=== PATIENT | male | born 1985 | race African-American/Black ===

== ENCOUNTER 2019-08-17 17:00 | Inpatient (IN) ==
[2019-08-17 17:32] LABS: Basophils # (auto) 0.02 K/uL (0-0.2); Basophils % (auto) 0.5 %; Eosinophils # (auto) 0.06 K/uL (0-0.5); Eosinophils % (auto) 1.4 %; Hematocrit (blood only) 53.5 % (42-52); Immature Granulocytes # (auto) 0.01 K/uL (0.00-0.02); Immature Granulocytes % (auto) 0.2 %; Lymphocytes # (auto) 2.15 K/uL (1.2-3.4); Lymphocytes % (auto) 48.5 %; Mean Corpuscular Hemoglobin 30.5 pg (25-34); Mean Corpuscular Hgb Conc 33.6 g/dL (32-36); Mean Corpuscular Volume 90.5 fL (80-100); Mean Platelet Volume 10.2 fL (7.4-10.4); Monocytes # (auto) 0.45 K/uL (0.11-0.59); Monocytes % (auto) 10.2 %; Neutrophils # (auto) 1.74 K/uL (1.4-6.5); Neutrophils % (auto) 39.2 %; Platelet Count 264 K/uL (130-400); RDW Coefficient of Variation 13.6 % (11.5-14.5); RDW Standard Deviation 44.5 fL (36.4-46.3); Red Blood Count 5.91 M/uL (4.7-6.1); White Blood Count 4.43 K/uL (4.8-10.8)
[2019-08-17 17:59] LABS: Albumin Level 3.4 gm/dl (3.4-5.0); Aspartate Aminotransferase 25 U/L (15-37); BUN Creatinine Ratio 10.1 (10-20); Blood Urea Nitrogen 15 mg/dl (7-18); Calcium 9.8 mg/dl (8.5-10.1); Carbon Dioxide 29 mmol/L (21-32); Chloride 105 mmol/L (98-107); Creatinine Clr Calc Pharmacy 132.1 ml/min; Est GFR (African American) 69.3; Est GFR (Non-African American) 59.8; Glucose 85 mg/dl (70-99); Lipase 68 U/L (73-393); Potassium 4.3 mmol/L (3.5-5.1); Sodium 139 mmol/L (136-145)
[2019-08-17 18:04] LABS: Alanine Aminotransferase 32 U/L (12-78); Albumin Globulin Ratio 0.9 (0.9-2); Alkaline Phosphatase 100 U/L (45-117); Bilirubin,Total 1.1 mg/dl (0.2-1); Globulin 3.9 gm/dl (2.5-4.0); Total Protein 7.3 gm/dl (6.4-8.2); Troponin I < 0.015 ng/ml (0-0.045)
--- NOTE | 2019-08-17 18:10 | XRay Report ---
XR chest 1V portable HISTORY: Atypical Chest Pain COMPARISON: None. FINDINGS: No pneumothorax. No pleural effusions. Cardiac silhouette is mildly enlarged. There is mild pulmonary vascular congestion without overt edema. Low lung volumes. No new focal lung consolidation s to suggest pneumonia. Left upper quadrant pacemaker is noted with the wire overlying the midline. IMPRESSION: Cardiomegaly and mild congestive change. Electronically signed by: Saul Wise M.D. 08/17/2019 6:08 PM
[2019-08-17] MEDS ORDERED: carvediloL 25 MG TAB PO ONE (18:39)
[2019-08-17 19:33] LABS: D Dimer 280 ug/L FEU (0-500)
[2019-08-17] MEDS: NITROGLYCERIN 2% OINTMENT 30GM TUBE EXT SCH (20:26)
--- NOTE | 2019-08-17 22:36 | History & Physical Report ---
Date of Service August 17, 2019 Assessment & Plan (1) AICD (automatic cardioverter/defibrillator) present: (2) V-tach: 33-year-old male with history of hypertension, nonischemic cardiomyopathy, ICD placement 2009, history of V. tach in 2016 and brief episode of A. fib presents status post episode of ICD going off today around 3 PM. Past medical history: Asthma, obstructive sleep apnea, schizophrenia Episode of V. tach with AICD shock The ED ED found to be hypertensive to [id number] over 100-110s EK normal sinus rhythm QTc 410 AICD interrogration: Concerning for 15 beats of monomorphic V. tach Echo ordered BNP ordered Hold off antiarrhythmics as patient stable and in normal sinus rhythm at this time Continue home beta-malcom Cardiology consulted Hypertension Continue home Coreg and lisinopril Given evening dose of Coreg in the ED and an additional dose of hydralazine 25 mg p.o. x1 patient actively hypertensive Continue to monitor and adjust regimen as indicated History of asthma Continue home levalbuterol as needed Schizophrenia Continue home aripiprazole, fluoxetine and hydroxyzine Hypothyroidism TSH ordered Continue home levothyroxine FEN/GI: Heart healthy diet, fluid restricted to 1500 cc DVT prophylaxis: Heparin subcu Code: Full Disposition: MedSurg with telemetry (3) Schizophrenia: (4) HTN (hypertension): (5) Asthma: (6) Cardiomyopathy: History of Present Illness Chief Complaint: Syncopal episode Primary Care Provider: [facility] 33-year-old male with history of hypertension, nonischemic cardiomyopathy, ICD placement 2009, history of V. tach in 2016 and brief episode of A. fib presents status post episode of ICD going off today around 3 PM. Patient reports feeling more short of breath dizzy and weak especially when walking for the last few days. Today he was activities and walking when his defibrillator went off and shocked him. He fell to the grass. As he was walking before he got shocked he felt lightheaded short of breath but did not have any chest pain or palpitations. He has noted about 25 to 30 pound weight gain in the past 2 weeks, orthopnea and increased lower extremity edema. Of note he has had cold symptoms for the past week: Dry cough, sore throat and runny nose. However he denies any wheezing. He also has an abdominal hernia which has been bothering him when he walks. He believes his hernia is getting larger. Denies any chest pain right now (has Nitropaste on because he had some initial chest pain when he arrived). Denies any chest pain, palpitations, abdominal pain, nausea, vomiting, diarrhea, constipation, hematochezia, melena, hematuria and urine Past medical history: Asthma, obstructive sleep apnea, schizophrenia Allergies Allergy/AdvReac Type Severity Reaction Status Date / Time penicillin G Allergy Mild Unknown Unverified 08/17/19 17:43 Home Medications Home Medications Medication Instructions Recorded Confirmed Type aripiprazole 15 mg tablet 15 mg PO DAILY 06/16/19 08/17/19 History aspirin 81 mg tablet,delayed 81 mg PO DAILY 06/16/19 08/17/19 History release carvedilol 25 mg tablet 25 mg PO BID 06/16/19 08/17/19 History hydroxyzine HCl 25 mg tablet 25 mg PO HS 06/16/19 08/17/19 History levalbuterol tartrate 45 2 puff INH QID PRN 06/16/19 08/17/19 History mcg/actuation aerosol inhaler levothyroxine 50 mcg capsule 50 mcg PO DAILY 06/16/19 08/17/19 History lisinopril 5 mg tablet 5 mg PO DAILY 06/16/19 08/17/19 History fluoxetine 20 mg PO DAILY 08/17/19 08/17/19 History Past Med/Surg History Medical History A-fib Asthma Cardiomyopathy Hernia HTN (hypertension) ICD (implantable cardioverter-defibrillator) in place [employer] subcutaneous ICD model A209, implanted 05/07/2016 Schizophrenia Surgical History History of cardiac defibrillator placement Social History Feels Safe at Home: Yes Smoking Status: Current some day smoker Review of Systems Review of Systems: As per HPI Physical Exam Physical Exam: General: In NAD Neuro: A&O x 4 Pulm: CTAB equal breath sounds bilaterally CV: RRR, no m/r/g Abdomen:+BS, no TTP in all quadrants, obese abdomen, non-bulging umbilical hernia LE: 1+ LE edema, no calf TTP Results & Data Vital Signs (Past 12 Hours) Vital Signs Temp Pulse Pulse Resp BP BP Pulse Ox 08/17/19 22:20 76 19 08/17/19 22:10 71 15 08/17/19 22:01 75 16 08/17/19 22:00 74 12 188/113 H 08/17/19 21:50 74 20 08/17/19 21:40 71 15 08/17/19 21:30 68 21 08/17/19 21:20 68 16 08/17/19 21:10 75 13 08/17/19 21:01 76 16 08/17/19 21:00 72 20 176/128 H 08/17/19 20:50 71 19 08/17/19 20:40 72 24 08/17/19 20:32 74 18 174/105 H 97 08/17/19 20:31 78 15 174/105 H 08/17/19 20:30 76 14 08/17/19 20:28 73 16 171/133 H 97 08/17/19 20:20 75 18 97 08/17/19 20:14 71 19 97 08/17/19 20:13 72 18 178/127 H 98 08/17/19 20:10 72 16 97 08/17/19 20:01 74 19 97 08/17/19 20:00 72 18 98 08/17/19 19:50 70 12 97 08/17/19 19:40 74 16 98 08/17/19 19:30 76 12 97 08/17/19 19:20 77 19 99 08/17/19 19:10 78 14 100 08/17/19 19:01 79 16 174/104 H 99 08/17/19 19:00 78 21 98 08/17/19 18:50 73 16 97 08/17/19 18:40 77 14 08/17/19 18:30 74 16 100 08/17/19 18:25 79 15 97 08/17/19 18:18 192/124 H 08/17/19 18:10 81 19 98 08/17/19 18:01 75 12 97 08/17/19 18:00 68 13 171/123 H 99 08/17/19 17:50 77 30 H 100 08/17/19 17:43 71 20 99 08/17/19 17:40 98 11/19/19 17:15 37.0 C 70 24 171/111 H 99 08/17/19 17:09 70 21 171/111 H 99 Laboratory Results Abnormal lab results 08/17/19 08/17/19 Range/Units 17:15 17:15 WBC 4.43 L (4.8-10.8) K/uL Hct 53.5 H (42-52) % Creatinine 1.51 H (0.6-1.4) mg/dl Total Bilirubin 1.1 H (0.2-1) mg/dl Lipase 68 L (73-393) U/L Diagnostic Findings XR chest 1V portable HISTORY: Atypical Chest Pain COMPARISON: None. FINDINGS: No pneumothorax. No pleural effusions. Cardiac silhouette is mildly enlarged. There is mild pulmonary vascular congestion without overt edema. Low lung volumes. No new focal lung consolidations to suggest pneumonia. Left upper quadrant pacemaker is noted with the wire overlying the midline. IMPRESSION: Cardiomegaly and mild congestive change. Code Status & VTE Plan Code Status Full code VTE Prophylaxis Plan VTE Prophylaxis will be ordered: Yes Supervising Physician Co-Signing Physician Notes Patient seen and examined, chart reviewed, case discussed with Dr. De Los Santos and I agree with her assessment and plan as documented above. Briefly, patient is a 33-year-old -[place] male with history of nonischemic cardiomyopathy status post AICD placement in 2009 presenting to [facility] ER after a syncopal event and AICD discharge at approximately 1530 this afternoon. Patient reports recent increase in shortness of breath and dyspnea on exertion as well as weight gain and dizziness. He reports feeling pounding in his chest and lightheaded prior to the shock. Device interrogation revealed 15 beat episode of wide-complex tachycardia, appears to be monomorphic V. tach with shock administered and return to normal sinus rhythm. On physical exam he is afebrile, hypertensive, otherwise stable Generalno acute distress, resting comfortably HEENTnormocephalic/atraumatic, pupils equal round reactive to light, extraocular muscles intact, moist mucous membranes, dentition intact, JVD diffi cult to assess secondary to body habitus Heart+ S1/S2, regular, no murmurs rubs or gallops, Nitropatch in place from ER\ Lungsequal air entry bilaterally, no rales/rhonchi/wheezes Abdomenobese, bowel sounds present, soft/nontender/nondistended Extremities+2+ pitting edema Labs and images reviewed. Electrolytes are within normal limits. Mildly elevated creatinine to 1.51, elevated hematocrit to 53.5 Assessment/plan 33-year-old -[place] male with history of nonischemic cardiomyopathy status post AICD placement presenting after AICD discharge, episode of wide- complex tachycardia/V. tach noted on interrogation. -Admit to medical floor with telemetry monitoring -Patient's fluid status difficult to assess at this time. His labs suggest that he may be somewhat volume contracted however his history suggest that he may have some degree of volume overload -Check BNP -Check 2D echo -Cardiology consulted. Appreciate assistance with this case -Continue home carvedilol and lisinopril. Will hold additional antiarrhythmics for now -Remainder of plan as above Resident Activity Tracking Resident Involvement: Resident Care Provided Care Provided: Adult Hospital Medicine
--- NOTE | 2019-08-17 23:14 | Billing Data ---
Coding Level of Care Code 44300 Initial Inpt Care Lvl 3
[2019-08-17] MEDS ORDERED: LEVALBUTEROL TARTRATE 15 GM HFA.AER.AD INH PRN (23:15)
--- NOTE | 2019-08-17 23:37 | Emergency Department Note ---
Entered by Shefali Youngblood acting as a scribe for Jarrett Vazquez DO History of Present Illness General Chief complaint: Chest Pain Stated complaint: CARDAIC ASSESSMENT Source: patient History of Present Illness Onset (ago): hour(s) 2 Location: head (syncope) Severity: similar to prior episodes Pain Consistency: + other (episode) Quality: + other (syncope) Associated symptoms: + shortness of breath and + other (Abdominal pain, rhinorrhea, defibrilator went off); no chest pain, no cough and no headaches Treatments prior to arrival: other (supplemental oxygen) The patient is a 33 year old male presenting to the Emergency Department complaining of an episode of syncope staring 2 hours [employer]. The patient reports that his defibrillator went off [employer] and that he then lost consciousness. He explains that he thinks he lost consciousness of a few seconds. He states that he had a defibrillator placed because he has A-fib. He notes that he has been short of breath and experiencing abdominal pain for the past 3 days. He adds that he experienced these symptoms before as his defibrillator has gone off before. The patient reports that he has had his [employer] defibrillator placed though [employer] in [place], [place]. He states that he sometimes has rhinorrhea. He explains that his lower extremities are normally swollen. He notes that he received supplemental oxygen [employer] but that he doesnt normally use supplemental oxygen. He adds that he doesnt currently take blood thinners but has taken Coumadin in the past. He denies chest pain, cough, headache, history of sudden in his family, and heart disease. Home Medications Home Medications Medication Instructions Recorded Confirmed Type aripiprazole 15 mg tablet 15 mg PO DAILY 06/16/19 08/17/19 History aspirin 81 mg tablet,delayed 81 mg PO DAILY 06/16/19 08/17/19 History release carvedilol 25 mg tablet 25 mg PO BID 06/16/19 08/17/19 History hydroxyzine HCl 25 mg tablet 25 mg PO HS 06/16/19 08/17/19 History levalbuterol tartrate 45 2 puff INH QID PRN 06/16/19 08/17/19 History mcg/actuation aerosol inhaler levothyroxine 50 mcg capsule 50 mcg PO DAILY 06/16/19 08/17/19 History lisinopril 5 mg tablet 5 mg PO DAILY 06/16/19 08/17/19 History fluoxetine 20 mg PO DAILY 08/17/19 08/17/19 History Allergies Allergy/AdvReac Type Severity Reaction Status Date / Time penicillin G Allergy Mild Unknown Unverified 08/17/19 17:43 Past Med/Surg History Medical History A-fib Asthma Cardiomyopathy Hernia HTN (hypertension) ICD (implantable cardioverter-defibrillator) in place [employer] subcutaneous ICD model A209, implanted 05/07/2016 Schizophrenia Surgical History History of cardiac defibrillator placement Social History Feels Safe at Home: Yes Smoking Status: Current some day smoker Review of Systems See HPI for pertinent positives & negatives. and A total of 10 systems reviewed and were otherwise negative Physical Exam Vital Signs Vital Signs - 24 hr 08/17/19 17:09 08/17/19 17:15 08/17/19 17:40 Temperature 37.0 C Temperature Source Oral Pulse Rate 70 70 Pulse Rate [Apical] Pulse Rate from SpO2 Sensor 71 Respiratory Rate 21 24 Respiratory Depth Shallow Blood Pressure 171/111 H 171/111 H Blood Pressure [Right Arm] Blood Pressure Mean 136 131 Blood Pressure Mean [Right Arm] Blood Pressure Position Sitting Pulse Oximetry 99 99 98 Oxygen Delivery Method Room Air Sepsis Recent Fever Within 48 Hours No Sepsis Action Taken by Nursing No Action Required 08/17/19 17:43 08/17/19 17:50 08/17/19 18:00 Temperature Temperature Source Pulse Rate 71 77 68 Pulse Rate [Apical] Pulse Rate from SpO2 Sensor 70 71 67 Respiratory Rate 20 30 H 13 Respiratory Depth Blood Pressure 171/123 H Blood Pressure [Right Arm] Blood Pressure Mean 137 Blood Pressure Mean [Right Arm] Blood Pressure Position Pulse Oximetry 99 100 99 Oxygen Delivery Method Sepsis Recent Fever Within 48 Hours Sepsis Action Taken by Nursing 08/17/19 18:01 08/17/19 18:10 08/17/19 18:18 Temperature Temperature Source Pulse Rate 75 81 Pulse Rate [Apical] Pulse Rate from SpO2 Sensor 76 82 Respiratory Rate 12 19 Respiratory Depth Blood Pressure 192/124 H Blood Pressure [Right Arm] Blood Pressure Mean 147 Blood Pressure Mean [Right Arm] Blood Pressure Position Pulse Oximetry 97 98 Oxygen Delivery Method Sepsis Recent Fever Within 48 Hours Sepsis Action Taken by Nursing 08/17/19 18:25 08/17/19 18:30 08/17/19 18:40 Temperature Temperature Source Pulse Rate 79 74 77 Pulse Rate [Apical] Pulse Rate from SpO2 Sensor 73 73 71 Respiratory Rate 15 16 14 Respiratory Depth Blood Pressure Blood Pressure [Right Arm] Blood Pressure Mean Blood Pressure Mean [Right Arm] Blood Pressure Position Pulse Oximetry 97 100 Oxygen Delivery Method Sepsis Recent Fever Within 48 Hours Sepsis Action Taken by Nursing 08/17/19 18:50 08/17/19 19:00 08/17/19 19:01 Temperature Temperature Source Pulse Rate 73 78 79 Pulse Rate [Apical] Pulse Rate from SpO2 Sensor 74 77 76 Respiratory Rate 16 21 16 Respiratory Depth Blood Pressure 174/104 H Blood Pressure [Right Arm] Blood Pressure Mean 117 Blood Pressure Mean [Right Arm] Blood Pressure Position Pulse Oximetry 97 98 99 Oxygen Delivery Method Sepsis Recent Fever Within 48 Hours Sepsis Action Taken by Nursing 08/17/19 19:10 08/17/19 19:20 08/17/19 19:30 Temperature Temperature Source Pulse Rate 78 77 76 Pulse Rate [Apical] Pulse Rate from SpO2 Sensor 74 75 76 Respiratory Rate 14 19 12 Respiratory Depth Blood Pressure Blood Pressure [Right Arm] Blood Pressure Mean Blood Pressure Mean [Right Arm] Blood Pressure Position Pulse Oximetry 100 99 97 Oxygen Delivery Method Sepsis Recent Fever Within 48 Hours Sepsis Action Taken by Nursing 08/17/19 19:40 08/17/19 19:50 08/17/19 20:00 Temperature Temperature Source Pulse Rate 74 70 72 Pulse Rate [Apical] Pulse Rate from SpO2 Sensor 73 72 73 Respiratory Rate 16 12 18 Respiratory Depth Blood Pressure Blood Pressure [Right Arm] Blood Pressure Mean Blood Pressure Mean [Right Arm] Blood Pressure Position Pulse Oximetry 98 97 98 Oxygen Delivery Method Sepsis Recent Fever Within 48 Hours Sepsis Action Taken by Nursing 08/17/19 20:01 08/17/19 20:10 08/17/19 20:13 Temperature Temperature Source Pulse Rate 74 72 72 Pulse Rate [Apical] Pulse Rate from SpO2 Sensor 73 72 67 Respiratory Rate 19 16 18 Respiratory Depth Blood Pressure 178/127 H Blood Pressure [Right Arm] Blood Pressure Mean 145 Blood Pressure Mean [Right Arm] Blood Pressure Position Pulse Oximetry 97 97 98 Oxygen Delivery Method Sepsis Recent Fever Within 48 Hours Sepsis Action Taken by Nursing 08/17/19 20:14 08/17/19 20:20 08/17/19 20:28 Temperature Temperature Source Pulse Rate 71 75 73 Pulse Rate [Apical] Pulse Rate from SpO2 Sensor 72 75 73 Respiratory Rate 19 18 16 Respiratory Depth Blood Pressure 171/133 H Blood Pressure [Right Arm] Blood Pressure Mean 142 Blood Pressure Mean [Right Arm] Blood Pressure Position Pulse Oximetry 97 97 97 Oxygen Delivery Method Sepsis Recent Fever Within 48 Hours Sepsis Action Taken by Nursing 08/17/19 20:30 08/17/19 20:31 08/17/19 20:32 Temperature Temperature Source Pulse Rate 76 78 Pulse Rate [Apical] 74 Pulse Rate from SpO2 Sensor Respiratory Rate 14 15 18 Respiratory Depth Normal Blood Pressure 174/105 H Blood Pressure [Right Arm] 174/105 H Blood Pressure Mean 146 Blood Pressure Mean [Right Arm] 128 Blood Pressure Position Pulse Oximetry 97 Oxygen Delivery Method Room Air Sepsis Recent Fever Within 48 Hours Sepsis Action Taken by Nursing 08/17/19 20:40 08/17/19 20:50 08/17/19 21:00 Temperature Temperature Source Pulse Rate 72 71 72 Pulse Rate [Apical] Pulse Rate from SpO2 Sensor Respiratory Rate 24 19 20 Respiratory Depth Blood Pressure 176/128 H Blood Pressure [Right Arm] Blood Pressure Mean 140 Blood Pressure Mean [Right Arm] Blood Pressure Position Pulse Oximetry Oxygen Delivery Method Sepsis Recent Fever Within 48 Hours Sepsis Action Taken by Nursing 08/17/19 21:01 08/17/19 21:10 08/17/19 21:20 Temperature Temperature Source Pulse Rate 76 75 68 Pulse Rate [Apical] Pulse Rate from SpO2 Sensor Respiratory Rate 16 13 16 Respiratory Depth Blood Pressure Blood Pressure [Right Arm] Blood Pressure Mean Blood Pressure Mean [Right Arm] Blood Pressure Position Pulse Oximetry Oxygen Delivery Method Sepsis Recent Fever Within 48 Hours Sepsis Action Taken by Nursing 08/17/19 21:30 08/17/19 21:40 08/17/19 21:50 Temperature Temperature Source Pulse Rate 68 71 74 Pulse Rate [Apical] Pulse Rate from SpO2 Sensor Respiratory Rate 21 15 20 Respiratory Depth Blood Pressure Blood Pressure [Right Arm] Blood Pressure Mean Blood Pressure Mean [Right Arm] Blood Pressure Position Pulse Oximetry Oxygen Delivery Method Sepsis Recent Fever Within 48 Hours Sepsis Action Taken by Nursing 08/17/19 22:00 08/17/19 22:01 08/17/19 22:10 Temperature Temperature Source Pulse Rate 74 75 71 Pulse Rate [Apical] Pulse Rate from SpO2 Sensor Respiratory Rate 12 16 15 Respiratory Depth Blood Pressure 188/113 H Blood Pressure [Right Arm] Blood Pressure Mean 118 Blood Pressure Mean [Right Arm] Blood Pressure Position Pulse Oximetry Oxygen Delivery Method Sepsis Recent Fever Within 48 Hours Sepsis Action Taken by Nursing 08/17/19 22:20 08/17/19 22:30 Temperature Temperature Source Pulse Rate 76 77 Pulse Rate [Apical] Pulse Rate from SpO2 Sensor Respiratory Rate 19 14 Respiratory Depth Blood Pressure Blood Pressure [Right Arm] Blood Pressure Mean Blood Pressure Mean [Right Arm] Blood Pressure Position Pulse Oximetry Oxygen Delivery Method Sepsis Recent Fever Within 48 Hours Sepsis Action Taken by Nursing GENERAL: Patient is sitting up in bed. Morbidly obese. Talking in full sentenc es. Non-toxic. EYE EXAM: normal conjunctiva, PERRL and EOM's grossly intact OROPHARYNX: no exudate, no erythema, lips, buccal mucosa, and tongue normal and mucous membranes are moist NECK: supple, no nuchal rigidity, no adenopathy, non-tender LUNGS: Clear to auscultation. Normal chest wall mechanics HEART: no murmurs, S1 normal and S2 normal CHEST: Old sub zyphoid/mid sternal incision. Foreign body under skin of left breast. ABDOMEN: Supra umbilical hernia present that is reducible. Abdomen soft, normo-active bowel sounds, no rebound or guarding. BACK: Back is symmetrical on inspection and there is no deformity, no midline tenderness, no CVA tenderness. SKIN: no rashes and no bruising UPPER EXTREMITIES: upper extremities are grossly normal. LOWER EXTREMITIES: Calves are equal bilaterally with pitting edema. NEURO EXAM: Normal sensorium, cranial nerves II-XII grossly intact, normal speech, no gross weakness of arms, no gross weakness of legs. Course Course ED COURSE: Vital signs were reviewed and showed hypertension. The patients medical record was reviewed The above diagnostic studies were performed and reviewed. ED treatments and interventions as stated above. 1716: The patient was evaluated in room B5. A complete history and physical examination was performed. 1733: I discussed the patients case with the patients provider at his [facility] facility. The provider reported that the patient has non-ischemic cardiomyopathy. 1812: The [employer] retail account representative will be at the in about 2 hours. He was contacted because we were unable to interrogate the patients defibrillator due to its old age. 1840: I updated the patient at this time and confirmed his dose of Carvedilol. He reported that he has no complaints at this time. 1917: EMR reviewed. The patient has a past medical history of A-fib with cardioversion, non-ischemic cardiomyopathy and v-tach. 1950: I spoke to the [employer] retail account representative at this time that confirmed that the patient was shocked by his defibrillator for V-Tach. 2011: I discussed the patients case with Dr. Chen Roller Hand. He recommends to hold on any antiarrhythmics and being the patient into the hospital. 2031: I discussed the patients case at this time with Dr. Luca SANTOS hospitalist. She will evaluate the patient for further management. 2037: Upon reevaluation, I discussed my findings with the patient and he un derstands and agrees with the treatment plan. Based on the patients age, coexisting illnesses, exam and lab findings the decision to treat as an inpatient was made. The patient remained stable while under my care. The patient will be evaluated for further management. Administered Medications Nitroglycerin (Nitro-Bid 2%) 2 inch EXT Q6H EDGAR Stop: 09/16/19 20:29 Last Admin: 08/17/19 20:26 Dose: 2 inch Documented by: [id number] Discontinued Medications Carvedilol (Coreg) 25 mg PO NOW ONE Stop: 08/17/19 18:40 Last Admin: 08/17/19 18:53 Dose: 25 mg Documented by: [id number] Hydralazine HCl (Apresoline) 25 mg PO NOW STA Stop: 08/17/19 22:24 Last Admin: 08/17/19 22:36 Dose: 25 mg Documented by: [id number] Medical Decision Making Differential Diagnosis Differential diagnoses includes but is not limited to acute coronary syndrome, myocardial infarction, pericarditis, pulmonary embolus, aortic dissection, pneumonia, pneumothorax, musculoskeletal, shingles, esophageal. Medical Records Attestation: I reviewed the patient's medical records. Home Medications Current Medication List: was personally reviewed by me Laboratory Data Attestation: I reviewed the patient's lab results. Result diagrams: 08/17/19 17:15 08/17/19 17:15 Lab Results 08/17/19 08/17/19 08/17/19 Range/Units 17:15 17:15 17:15 WBC 4.43 L (4.8-10.8) K/uL RBC 5.91 (4.7-6.1) M/uL Hgb 18.0 (14.0-18.0) g/dL Hct 53.5 H (42-52) % MCV 90.5 (80-100) fL MCH 30.5 (25-34) pg MCHC 33.6 (32-36) g/dL RDW Std Deviation 44.5 (36.4-46.3) fL RDW Coeff of Rosangela 13.6 (11.5-14.5) % Plt Count 264 (130-400) K/uL MPV 10.2 (7.4-10.4) fL Immature Gran % (Auto) 0.2 % Neut % (Auto) 39.2 % Lymph % (Auto) 48.5 % Nye % (Auto) 10.2 % Eos % (Auto) 1.4 % Baso % (Auto) 0.5 % Immature Gran # (Auto) 0.01 (0.00-0.02) K/uL Neut # (Auto) 1.74 (1.4-6.5) K/uL Lymph # (Auto) 2.15 (1.2-3.4) K/uL Nye # (Auto) 0.45 (0.11-0.59) K/uL Eos # (Auto) 0.06 (0-0.5) K/uL Baso # (Auto) 0.02 (0-0.2) K/uL D-Dimer 280 (0-500) ug/L FEU Sodium 139 (136-145) mmol/L Potassium 4.3 (3.5-5.1) mmol/L Chloride 105 (98-107) mmol/L Carbon Dioxide 29 (21-32) mmol/L Anion Gap 5.0 (3-11) BUN 15 (7-18) mg/dl Creatinine 1.51 H (0.6-1.4) mg/dl Est Cr Clr Drug Dosing 132.1 ml/min Est GFR ( Amer) 69.3 Est GFR (Non-Af Amer) 59.8 BUN/Creatinine Ratio 10.1 (10-20) Glucose 85 (70-99) mg/dl Calcium 9.8 (8.5-10.1) mg/dl Total Bilirubin 1.1 H (0.2-1) mg/dl AST 25 (15-37) U/L ALT 32 (12-78) U/L Alkaline Phosphatase 100 (45-117) U/L Troponin I < 0.015 (0-0.045) ng/ml Total Protein 7.3 (6.4-8.2) gm/dl Albumin 3.4 (3.4-5.0) gm/dl Globulin 3.9 (2.5-4.0) gm/dl Albumin/Globulin Ratio 0.9 (0.9-2) Lipase 68 L (73-393) U/L Imaging Data Radiologist's Impression: Radiology results as stated below per my review and the radiologist's interpretation: XR chest 1V portable HISTORY: Atypical Chest Pain COMPARISON: None. FINDINGS: No pneumothorax. No pleural effusions. Cardiac silhouette is mildly enlarged. There is mild pulmonary vascular congestion without overt edema. Low lung volumes. No new focal lung consolidations to suggest pneumonia. Left upper quadrant pacemaker is noted with the wire overlying the midline. IMPRESSION: Cardiomegaly and mild congestive change. Electronically signed by: Saul Wise M.D. 08/17/2019 6:08 PM ECG Data Attestation: I personally reviewed and interpreted this ECG as follows: Indication: + chest pain and + syncope Rate (beats per minute): 71 Rhythm: + sinus rhythm ECG [place]: + Normal ECG Findings: + Other (Peaked T waves in V2 and V3. Normal QTC.); no PVCs Blood Pressure Blood Pressure Findings: Elevated blood pressure Blood Pressure Disposition: further management by hospitalist JONATAN Narrative Patient is a 33-year-old male with a past medical history of nonischemic cardiomyopathy with an ICD placed at [facility] around 2009 with a slightly low EF history of A. fib and one episode of V. tach back in 2017 while playing basketball who follows with Dr. Castelan. He presents tonight following an episode around 2 PM where he believes he was shocked in the past out. He notes he has been short of breath for the past 3 days. Has had some swelling but that is typical in his lower extremities. He also has some periumbilical abdominal pain and on exam he does have an appreciable hernia. IV was established blood work was obtained and showed a mild leukopenia at 4.4 thousand. No significant anemia. ICD was interrogated and did show an episode of what appeared to be wide-complex tachycardia/VT. BMP was unremarkable with exception of creatinine 1.5. LFTs bilirubin troponin were negative. TSH and lipase were unremarkable. Chest x-ray without any focal infiltrate per my read. Patient was discussed with cardiology and they recommended holding on any antiarrhythmics at this time. Patient was updated bedside. Discussed with hospitalist and patient was admitted for episode of V. tach with shock secondary to defibrillator. EKG here was unremarkable. Impression & Plan V-tach, AICD (automatic cardioverter/defibrillator) present, Shortness of breath, Syncope Discharge Plan Visit Data *Final* Discharge Date/Time: 08/17/19 22:55 Chief Complaint: Chest Pain Stated Complaint: CARDAIC ASSESSMENT ED Provider: Jarrett Vazquez Discharge Problem: V-tach, AICD (automatic cardioverter/defibrillator) present, Shortness of breath, Syncope Patient Disposition: Admitted As Inpatient Discharge Instructions Interventions: ED Discharge Assessment Last Done: 08/17/19 22:55 Discharge Problem: Syncope Qualifiers: Syncope type: heat syncope Encounter type: initial encounter Qualified Code(s): T67.1XXA - Heat syncope, initial encounter The scribe's documentation has been prepared under my direction and personally reviewed by me in its entirety. I confirm that the note above accurately reflects all work, treatment, procedures, and medical decision making performed by me.
[2019-08-18 00:42] LABS: NT Pro B Type Natriuretic Pept 1208 pg/ml (0-450)
[2019-08-18] MEDS: NITROGLYCERIN 2% OINTMENT 30GM TUBE EXT SCH ×2 (01:13→05:57)
[2019-08-18] MEDS ORDERED: LEVOTHYROXINE SODIUM 50 MCG TABLET PO SCH (06:30)
[2019-08-18] MEDS ORDERED: PERFLUTREN LIPID MICROSPHERE (DEFINITY) IV ONE (06:43)
[2019-08-18 08:10] LABS: Hematocrit (blood only) 50.9 % (42-52); Hemoglobin 17.4 g/dL (14.0-18.0); Mean Corpuscular Hemoglobin 30.4 pg (25-34); Mean Corpuscular Hgb Conc 34.2 g/dL (32-36); Mean Corpuscular Volume 88.8 fL (80-100); Mean Platelet Volume 9.9 fL (7.4-10.4); Platelet Count 250 K/uL (130-400); RDW Coefficient of Variation 13.6 % (11.5-14.5); RDW Standard Deviation 44.3 fL (36.4-46.3); Red Blood Count 5.73 M/uL (4.7-6.1); White Blood Count 4.51 K/uL (4.8-10.8)
--- NOTE | 2019-08-18 08:13 | Medical Student Progress Note ---
Date of Service August 18, 2019 Assessment & Plan (1) V-tach: 33 y/o male with a history of V-tach (2016), AICD (2009), HTN, non- ischemic cardiomyopathy, alcoholism, schizophrenia, asthma who was admitted 08/17 following his ICD going off for V-tach, reporting recent increase in SOB Ventricular tachycardia, AICD shock, non-ischemic cardiomyopathy no troponin elevation EKG: normal sinus rhythm, no QT prolongation AICD interrogation: Concerning for 15 beats of monomorphic V. tach Echocardiogram: LV moderately dilated, LV mild concentric hypertrophy, LV systolic function mildly reduced, regional wall motion abnormalities, LA mildly dilated, RV sys pressure normal, mild aortic root dilation, EF 45-50% urine drug profile ordered currently in normal sinus rhythm, hold anti arrhythmics continue carvedilol 25 mg PO BID cardiology consult would appreciated HTN BP 174/112 (08/18 @ 0740) BP 109/63 (08/18 @ 1036) post AM medication administration given prescribed dose of carvedilol in ED continue home dose of carvedilol 25 mg PO BID continue lisinopril 5 mg PO DAILY continue monitoring BP titrate medications as needed worsening dyspnea no sign of fluid overload no pulmonary pathology possibly secondary to recent weight gain asthma continue levalbuterol tartrate 45mcg 2 puff INH QID PRN possible OHS/sleep apnea considering body habitus consider outpatient sleep study Schizophrenia given 1 dose hydralazine 25mg PO in ED continue aripiprazole 15 mg PO DAILY continue fluoxetine 20 mg PO DAILY Hypothyroidism TSH normal continue levothyroxine 50 mcg PO DAILY FEN/GI: Heart healthy diet, fluid restricted to 1500 cc DVT prophylaxis: Heparin SQ Code: Full Disposition: MedSurg with telemetry (2) Schizophrenia: (3) HTN (hypertension): (4) Asthma: (5) Cardiomyopathy: (6) AICD (automatic cardioverter/defibrillator) present: (7) Shortness of breath: (8) Hypothyroidism: (9) Dyspnea: Subjective CC: ICD went off Mr. Rashaun Mistry is a 33 y/o male with a history of V-tach (2016), AICD (2009), HTN, non-ischemic cardiomyopathy, schizophrenia, asthma who was admitted 08/17 following his ICD going off around 3pm. Pt states he had been feeling short of breath earlier that day, and had been walking around and feeling his SOB improve when his ICD went off. Pt states he had been compliant with all medications. Pt states he fell down when the ICD went off but did not lose consciousness and did not hit his head when he fell. Pt states he did not feel any chest pain or palpitations before his ICD went off. Pt states he has been feeling short of breath for the past few weeks, and this has kept him away from being active such as playing basketball, which he feels has contributed to his recent weight gain. Currently, pt states he feels fatigued, but does not endorse SOB, no c/p. Pt also states his abdominal hernia gives him discomfort with activity which has made him less active. Pt does not endorse n/v, no changes in bowel movement. Pt also states he has had a cold for the past few days which has made him more short of breath. Review of Systems Constitutional: + fatigue and + weight gain Respiratory: + cough and + dyspnea Cardiovascular: + dyspnea, + dyspnea at rest and + edema; no chest pain, no palpitations and no lightheadedness Gastrointestinal: no abdominal pain, no nausea, no vomiting and no change in bowel habits abdominal hernia Neurologic: + falls and + headache(s) fall following AICD shock, no syncope Physical Exam Constitutional: well developed, well nourished, + acute distress and + obese Respiratory: normal respiratory effort, lungs clear to auscultation Cardiovascular: Rate/Rhythm: regular rate and regular rhythm Heart Sounds: normal S1 and normal S2; no gallop, no murmur and no cardiac rub Extremities: + edema Gastrointestinal (Abdomen): Inspection/Auscultation: normal bowel sounds palpable supraumbilical abdominal hernia about 2cm in size, not TTP, reducible Results & Data Vital Signs (Past 12 Hours) Vital Signs Temp Pulse Pulse Resp BP BP Pulse Ox 08/18/19 07:42 36.6 C 87 20 174/112 H 92 08/18/19 03:53 36.8 C 75 16 152/83 H 97 08/18/19 01:05 177/102 H 08/17/19 23:09 36.4 C L 78 18 150/108 H 98 08/17/19 22:50 83 23 162/113 H 98 08/17/19 22:40 84 21 08/17/19 22:30 77 14 08/17/19 22:20 76 19 08/17/19 22:10 71 15 08/17/19 22:01 75 16 08/17/19 22:00 74 12 188/113 H 08/17/19 21:50 74 20 08/17/19 21:40 71 15 08/17/19 21:30 68 21 08/17/19 21:20 68 16 08/17/19 21:10 75 13 08/17/19 21:01 76 16 08/17/19 21:00 72 20 176/128 H 08/17/19 20:50 71 19 08/17/19 20:40 72 24 08/17/19 20:32 74 18 174/105 H 97 08/17/19 20:31 78 15 174/105 H 08/17/19 20:30 76 14 08/17/19 20:28 73 16 171/133 H 97 08/17/19 20:20 75 18 97 08/17/19 20:14 71 19 97 08/17/19 20:13 72 18 178/127 H 98 08/17/19 20:10 72 16 97 08/17/19 20:01 74 19 97 08/17/19 20:00 72 18 98 08/17/19 19:50 70 12 97
[2019-08-18] MEDS: ACETAMINOPHEN 325 MG TAB PO PRN ×2 (08:20→15:51)
[2019-08-18 08:26] LABS: BUN Creatinine Ratio 12.1 (10-20); Calcium 9.3 mg/dl (8.5-10.1); Creatinine Clr Calc Pharmacy 152.8 ml/min; Est GFR (African American) 83.1; Est GFR (Non-African American) 71.7; Potassium 3.6 mmol/L (3.5-5.1)
[2019-08-18] MEDS ORDERED: FLUOXETINE HCL 20 MG CAP PO SCH (09:00)
[2019-08-18] MEDS ORDERED: ASPIRIN 81 MG ECTAB PO SCH (09:00)
[2019-08-18] MEDS ORDERED: carvediloL 25 MG TAB PO SCH ×2 (09:00→21:00)
[2019-08-18] MEDS ORDERED: lisinopriL 5 MG TAB PO SCH (09:00)
[2019-08-18] MEDS ORDERED: HEPARIN SOD 5,000 UNIT/0.5 ML VIAL SQ SCH (09:00)
[2019-08-18] MEDS ORDERED: ARIPiprazole 15 MG TAB PO SCH (09:00)
--- NOTE | 2019-08-18 12:08 | Cardiology Consultation ---
Date of Consultation August 18, 2019 Assessment & Plan (1) HTN (hypertension): His blood pressure was markedly elevated over the course of the evening. I think would benefit from more aggressive blood pressure control. I would advocate increasing his carvedilol to 37.5 mg twice daily. I think increasing his lisinopril to 10 mg daily would also be of value. If he continues to have elevated blood pressures addition of an aldosterone antagonist, spironolactone 25 mg daily would also be a good choice. (2) Cardiomyopathy: His echocardiogram suggests a very mild degree of LV dysfunction. He does have regional wall motion abnormalities which are curious given the presumed nonischemic nature of his heart disease. He would be reasonable at some point to consider more advanced cardiac imaging such as an MRI to evaluate for scar. It could also undergo cardiac perfusion imaging to identify infarcted tissue with the presence of ischemia. The likelihood that his cardiomyopathy is ischemic is quite low. He reports having had an evaluation in the past in his demographic is not expected to have an ischemic etiology. He will continue on beta-malcom and Elio inhibition for now. He did have an element of dyspnea recently. This is more likely related to an arrhythmia rather than pulmonary vascular congestion. His volume status is very difficult to estimate given his body habitus. Evaluation of his echocardiogram did not reveal any plethora of the IVC suggesting overall normovolemia (3) V-tach: I reviewed his intracardiac electrograms suggest that the presenting rhythm was fast and irregular. I suspect this was atrial fibrillation. Reportedly has had some atrial fibrillation previously. He was exercising the time and likely had an element of rapid ventricular response triggering the device. There was a very brief episode of wide complex rhythm immediately prior to therapy. However, this is not likely to have triggered the device as it was already in the process of charging for therapy. I do not believe he lost consciousness. I believe the best treatment currently is increasing his carvedilol. Based on his risk factors for stroke, he would likely benefit from systemic anticoagulation. Given his normal renal function he would seem to be reasonable candidate for the novel agents. However, these agents have not been tested for efficacy in patients of his weight. Therefore, the current recommendation for patient's over 120 kg is warfarin. I think right peroxide band 20 mg daily would be a reasonable option if this is more convenient although outcomes data is lacking. (4) AICD (automatic cardioverter/defibrillator) present: His device appears to be functioning as programmed. There is no significant program ability with respect to the duration of detection. Hopefully with better rate control he will not receive additional therapies. History of Present Illness Reason for Consultation: Ventricular tachycardia Requesting Physician: Ayden Attending Physician: Laura Hensley MD History of Present Illness The patient is a 33-year-old gentleman with a reported history of nonischemic cardiomyopathy status post prior implantation of subcutaneous ICD who received therapy from his device yesterday. The patient's history dates back over a decade. The records of his initial illness are not complete or readily available, but he did apparently have a nonischemic cardiomyopathy and placement of a subcutaneous defibrillator. He did undergo a recent generator change for his subcutaneous defibrillator. Reportedly he has had therapy for ventricular tachycardia in the past. It seems that yesterday he was ambulatory around his unit. He reported performing some exercise characterized by rapid walking in circles. During this activity he apparently felt slightly lightheaded and then received a shock from his device. The patient did fall to the ground but did not report any definite loss of consciousness. Afterwards he states that he felt generally well. The history is complicated by his underlying mental illness and poor recollection of the events. He also appear to have some difficulty communicating some of the details of the events which occurred yesterday. He states that in general he is an active person. He feels that he is limited by dyspnea at times. He does not report overt orthopnea or paroxysmal nocturnal dyspnea. He has rare palpitations that are fleeting in nature. He does not describe dizziness routinely. He cannot recall any episodes of syncope. Allergies Allergy/AdvReac Type Severity Reaction Status Date / Time penicillin G Allergy Mild Unknown Unverified 08/17/19 17:43 Home Medications Home Medications Medication Instructions Recorded Confirmed Type aripiprazole 15 mg tablet 15 mg PO DAILY 06/16/19 08/17/19 History aspirin 81 mg tablet,delayed 81 mg PO DAILY 06/16/19 08/17/19 History release carvedilol 25 mg tablet 25 mg PO BID 06/16/19 08/17/19 History hydroxyzine HCl 25 mg tablet 25 mg PO HS 06/16/19 08/17/19 History levalbuterol tartrate 45 2 puff INH QID PRN 06/16/19 08/17/19 History mcg/actuation aerosol inhaler levothyroxine 50 mcg capsule 50 mcg PO DAILY 06/16/19 08/17/19 History lisinopril 5 mg tablet 5 mg PO DAILY 06/16/19 08/17/19 History fluoxetine 20 mg PO DAILY 08/17/19 08/17/19 History Patient History Medical History A-fib Asthma Cardiomyopathy Hernia HTN (hypertension) ICD (implantable cardioverter-defibrillator) in place [employer] subcutaneous ICD model A209, implanted 05/07/2016 Schizophrenia Surgical History History of cardiac defibrillator placement Social History Preferred Language: Macedonian Communication Ability: Effective Manager [employer] Required: No Beliefs That Will Affect Care: None Current Living Situation: Other Feels Safe at Home: Yes Smoking Status: Unknown if ever smoked Hx Alcohol Use: No Hx Substance Use: No Review of Systems Review of Systems: All systems reviewed & are unremarkable except as noted in HPI & below He has rare and fleeting sharp pains in the left upper quadrant of his abdomen. No chest pains. Physical Exam Physical Exam: The patient is alert and oriented. Mood and affect appeared normal. He answered all questions appropriately. Obese HEENT: Pupils are equal and reactive to light and accommodation. Extraocular movements are intact. The sclerae are anicteric. Neuro: Cranial nerves intact Neck: Patient's neck is supple. He has palpable carotid pulses bilaterally without bruits on auscultation. There is no evidence of jugular venous distention. The thyroid is not enlarged. Lungs: Clear to auscultation bilaterally. He has good air movement without use of accessory muscles. No rales wheezes or rhonchi. Cardiac: Heart demonstrates a regular rate and rhythm. Normal S1 and S2. No murmurs on examination. Pulses: The patient has palpable radial pulses bilaterally that are equal in intensity Extremities: There was no evidence of hypoperfusion. There is no cyanosis or clubbing. There is no edema. Skin: I did not appreciate any rashes on examination today. Results & Data Vital Signs (Past 12 Hours) Vital Signs Temp Pulse Pulse Resp BP Pulse Ox 08/18/19 10:36 36.9 C 73 20 109/63 93 08/18/19 07:42 36.6 C 87 20 174/112 H 92 08/18/19 07:35 74 08/18/19 03:53 36.8 C 75 16 152/83 H 97 08/18/19 01:05 177/102 H Laboratory Results Abnormal Lab Results 08/17/19 08/17/19 08/17/19 17:15 17:15 17:15 WBC 4.43 L RBC 5.91 Hgb 18.0 Hct 53.5 H MCV 90.5 MCH 30.5 MCHC 33.6 RDW Std Deviation 44.5 RDW Coeff of Rosangela 13.6 Plt Count 264 MPV 10.2 Immature Gran % (Auto) 0.2 Neut % (Auto) 39.2 Lymph % (Auto) 48.5 [place] % (Auto) 10.2 Eos % (Auto) 1.4 Baso % (Auto) 0.5 Immature Gran # (Auto) 0.01 Neut # (Auto) 1.74 Lymph # (Auto) 2.15 [place] # (Auto) 0.45 Eos # (Auto) 0.06 Baso # (Auto) 0.02 D-Dimer 280 Sodium 139 Potassium 4.3 Chloride 105 Carbon Dioxide 29 Anion Gap 5.0 BUN 15 Creatinine 1.51 H Est Cr Clr Drug Dosing 132.1 Est GFR ( Amer) 69.3 Est GFR (Non-Af Amer) 59.8 BUN/Creatinine Ratio 10.1 Glucose 85 Calcium 9.8 Total Bilirubin 1.1 H AST 25 ALT 32 Alkaline Phosphatase 100 Troponin I < 0.015 NT-Pro-B Natriuret Pep 1208 H Total Protein 7.3 Albumin 3.4 Globulin 3.9 Albumin/Globulin Ratio 0.9 Lipase 68 L TSH 3.390 08/18/19 08/18/19 07:47 07:47 WBC 4.51 L RBC 5.73 Hgb 17.4 Hct 50.9 MCV 88.8 MCH 30.4 MCHC 34.2 RDW Std Deviation 44.3 RDW Coeff of Rosangela 13.6 Plt Count 250 MPV 9.9 Immature Gran % (Auto) Neut % (Auto) Lymph % (Auto) [place] % (Auto) Eos % (Auto) Baso % (Auto) Immature Gran # (Auto) Neut # (Auto) Lymph # (Auto) [place] # (Auto) Eos # (Auto) Baso # (Auto) D-Dimer Sodium 138 Potassium 3.6 D Chloride 106 Carbon Dioxide 27 Anion Gap 5.0 BUN 16 Creatinine 1.30 Est Cr Clr Drug Dosing 152.8 Est GFR ( Amer) 83.1 Est GFR (Non-Af Amer) 71.7 BUN/Creatinine Ratio 12.1 Glucose 83 Calcium 9.3 Total Bilirubin AST ALT Alkaline Phosphatase Troponin I NT-Pro-B Natriuret Pep Total Protein Albumin Globulin Albumin/Globulin Ratio Lipase TSH Diagnostic Findings I performed a device interrogation which did reveal 1 therapy delivered yesterday. There was a rapid irregular heartbeat followed by a brief period of wide complex tachycardia prior to delivery of therapy. ECG Additional Comments: EKG obtained at the time of admission revealed normal sinus rhythm. Normal QRS. PG Care Time/CCT Total # of Minutes Spent Total Time Spent with Patient: Total time spent is greater than 50% in coordination of care (as documented) at patient's floor/unit and/or counseling patient:
[2019-08-18 14:17] LABS: Prothrombin Time 10.6 Seconds (9.0-12.0)
--- NOTE | 2019-08-18 15:31 | Discharge Summary ---
Date of Service August 18, 2019 Admission HPI Per Admitting Provider 33-year-old male with history of hypertension, nonischemic cardiomyopathy, ICD placement 2010, history of V. tach in 2017 and brief episode of A. fib presents status post episode of ICD going off today around 3 PM. Patient reports feeling more short of breath dizzy and weak especially when walking for the last few days. Today he was activities and walking when his defibrillator went off and shocked him. He fell to the grass. As he was walking before he got shocked he felt lightheaded short of breath but did not have any chest pain or palpitations. He has noted about 25 to 30 pound weight gain in the past 2 weeks, orthopnea and increased lower extremity edema. Of note he has had cold symptoms for the past week: Dry cough, sore throat and runny nose. However he denies any wheezing. He also has an abdominal hernia which has been bothering him when he walks. He believes his hernia is getting larger. Denies any chest pain right now (has Nitropaste on because he had some initial chest pain when he arrived). Denies any chest pain, palpitations, abdominal pain, nausea, vomiting, diarrhea, constipation, hematochezia, melena, hematuria and urine Past medical history: Asthma, obstructive sleep apnea, schizophrenia Admission Exam Per Admitting Provider General: In NAD Neuro: A&O x 4 Pulm: CTAB equal breath sounds bilaterally CV: RRR, no m/r/g Abdomen:+BS, no TTP in all quadrants, obese abdomen, non-bulging umbilical hernia LE: 1+ LE edema, no calf TTP Principal Diagnosis Atrial Fibrillation, Hypertension, Cardiomyopathy Discharge Exam Constitutional: well developed, well nourished, + acute distress and + obese Respiratory: normal respiratory effort, lungs diminished bilaterally Cardiovascular: Rate/Rhythm: regular rate and regular rhythm Heart Sounds: normal S1 and normal S2; no gallop, no murmur and no cardiac rub Extremities: + edema bilaterally. No tenderness to palpation of b/l calves. Gastrointestinal (Abdomen): palpable supraumbilical abdominal hernia, not TTP, reducible Discharge Data Allergies Allergy/AdvReac Type Severity Reaction Status Date / Time penicillin G Allergy Mild Unknown Unverified 08/17/19 17:43 Consultations 08/17/19 20:09 ED Decision to Admit Stat 11/19/19 23:15 Consult Cardiology Routine Hospital Course (1) AICD (automatic cardioverter/defibrillator) present: (2) V-tach: Mr. Mistry is a 33-year-old male with history of hypertension, nonisch emic cardiomyopathy, ICD placement 2009, history of V. tach in 2017 and brief episode of A. fib, ALVARO, asthma, schizophrenia who presents status post episode of ICD going off on 08/17/2019 around 3 PM. AICD shock for ?atrial dysrhythmia -EKG on arrival: 71 normal sinus rhythm QTc 410 -AICD interrogration: Concerning for 15 beats of monomorphic V. tach -trop negative x1 -UDS negative -BNP 1208 -Cardiology consulted -> felt the rhythm prior to his AICD firing was consistent w/atrial fibrillation -> recommended increasing coreg to 37.5mg BID -> recommended initiation of anticoagulation -> warfarin 10mg given on 08/18/2019. Recommend administering 5mg on 08/19/2019, and checking INR -> aiming for INR between 2-3 Hypertension -found to be hypertensive to [id number] over 100-110s in ED -Increased home Coreg from 25mg BID to 37.5mg BID -if BP remains elevated at >140/90 despite the increase in his coreg, can increase lisinopril to 10mg daily from 5mg -if he continues to have elevated BPs after increasing both medications, consider addition of spironolactone 25mg daily Cardiomyopathy -ECHO: mild degree of LV dysfunction w/regional wall motion abnormalities (anterior and posterior hypokinesis). EF = 45-50%. -f/u with cardiology in outpatient setting for cardiac MRI vs. cardiac perfusion imaging History of asthma -Continue home levalbuterol as needed Schizophrenia -Continue home aripiprazole, fluoxetine and hydroxyzine Hypothyroidism -TSH 3.39 on arrival -Continue home levothyroxine ?ALVARO -outpatient sleep study recommended (3) Schizophrenia: (4) HTN (hypertension): (5) Asthma: (6) Cardiomyopathy: Total Time Total Time Spent Total Time Spent (In Minutes): See attending attestation Discharge Plan Discharge Items [facility] Disposition: [facility] Reason For Visit: SYNCOPAL EPISODE S/P ICD SHOCK Discharge Diagnosis: Atrial Fibrillation, Hypertension Activity: Resume your previous activity Non-emergency contact: Primary Care Provider Call non-emergency contact if: you have any medication questions Follow-up/Referrals: [facility] [Primary Care Provider] - Diet: Heart Healthy Addtl Attending Provider Instructions: Mr. Mistry is a 33-year-old male with history of hypertension, nonischemic cardiomyopathy, ICD placement 2010, history of V. tach in 2017 and brief episode of A. fib, ALVARO, asthma, schizophrenia who presents status post episode of ICD going off on 08/17/2019 around 3 PM. AICD shock -Cardiology consulted -> felt the rhythm prior to his AICD firing was consistent w/atrial fibrillation -> recommended increasing coreg to 37.5mg BID -> recommended initiation of anticoagulation -> warfarin 10mg given on 08/18/2019. Recommend administering 5mg on 08/19/2019, and checking INR -> aiming for INR between 2-3 Hypertension -found to be hypertensive to [id number] over 100-110s in ED -Increased home Coreg from 25mg BID to 37.5mg BID -if BP remains elevated at >140/90 despite the increase in his coreg, can increase lisinopril to 10mg daily from 5mg -if he continues to have elevated BPs after increasing both medications, consider addition of spironolactone 25mg daily Cardiomyopathy -f/u with cardiology in outpatient setting for cardiac MRI vs. cardiac perfusion imaging History of asthma -Continue home levalbuterol as needed Schizophrenia -Continue home aripiprazole, fluoxetine and hydroxyzine Hypothyroidism -Continue home levothyroxine ?ALVARO -outpatient sleep study recommended Pending Studies at Discharge: No Stand-Alone Forms: [facility] Patient informed of condition?: Yes Discharge Level of Care: Other Communicable Disease: No Discharge Prognosis: Stable Lines: None Urinary Catheter: No Medications and DC Order Prescriptions: New carvedilol 25 mg Tablet 37.5 mg PO BID Qty: 30 RF: 0 warfarin 5 mg tablet 5 mg PO DAILY Qty: 1 RF: 0 Continued aripiprazole 15 mg tablet 15 mg PO DAILY RF: 0 hydroxyzine HCl 25 mg tablet 25 mg PO HS RF: 0 aspirin 81 mg tablet,delayed release (DR/EC) 81 mg PO DAILY RF: 0 levothyroxine 50 mcg capsule 50 mcg PO DAILY RF: 0 lisinopril 5 mg tablet 5 mg PO DAILY RF: 0 levalbuterol tartrate 45 mcg/actuation HFA aerosol inhaler 2 puff INH QID PRN (Reason: Shortness Of Breath Or Wheezing) RF: 0 fluoxetine 20 mg Capsule 20 mg PO DAILY RF: 0 Discontinued carvedilol 25 mg tablet 25 mg PO BID RF: 0 Discharge Orders: Discharge Order (Routine); Ordered 08/18/19 Ordered By: Eleanor Vick Admission Data Admit Date/Time: 08/17/19 22:33 Attending Provider: Laura Hensley Admit Provider: Erma Segovia Primary Care Provider: Zackary HAN Other Providers: Erma Segovia ; Dajuan Tate Other Interventions: Discharge Summary Assessment (RN) Last Done: 08/18/19 15:45 DC Date/Time DO NOT enter until pt leaves facility: 08/18/19 17:11 Supervising Physician Co-Signing Physician Notes Resident Physician Supervision Note: I independently interviewed and examined the patient and verified the contreras history and physical, reviewed labs and image studies, discussed the case with the resident Dr. Paez and agree with the findings and care plan. Resident Activity Tracking Resident Involvement: Resident Care Provided Care Provided: Adult Hospital Medicine
[2019-08-18 15:34] LABS: Amphetamines+Metham, Urine Neg (Neg); Barbiturates, Urine Neg (Neg); Benzodiazepine, Urine Neg (Neg); Cocaine, Urine Neg (Neg); MDMA (Ecstacy), Urine Neg (Neg); Methadone, Urine Neg (Neg); Opiate, Urine Neg (Neg); Phencyclidine, Urine Neg (Neg)
[2019-08-18] MEDS ORDERED: WARFARIN SOD 10 MG TAB PO ONE (16:00)
== END 2019-08-18 17:11 | DRG 309 ==
LOC: ED 17:00 → 2E 22:33 → SUATTDRO 22:33 → 2E 22:55

== ENCOUNTER 2019-09-03 18:42 | Inpatient (IN) ==
[2019-09-03] MEDS ORDERED: METOPROLOL TARTRATE 1 MG/ML VIAL IV STA (18:56)
--- NOTE | 2019-09-03 19:22 | XRay Report ---
XR chest 1V portable HISTORY: Shortness of breath. COMPARISON: Chest 08/17/2019. FINDINGS: No pneumothorax. No pleural effusions. The heart remains moderately enlarged. No new focal lung consolidations to suggest pneumonia. There is mild central pulmonary vascular congestion without overt edema. IMPRESSION: No change in the cardiomegaly and mild congestive change. Electronically signed by: Saul Wise M.D. 09/03/2019 7:20 PM
--- NOTE | 2019-09-03 20:18 | Emergency Department Note ---
Entered by Rachael Baldwin acting as a scribe for History of Present Illness General Chief complaint: Shortness of Breath/Dyspnea Stated complaint: SOB Time Seen by Provider: 09/03/19 18:50 Source: patient and old records reviewed Mode of arrival: other (fpc guards) History of Present Illness Onset (ago): hour(s) (9:30AM today ) Location: chest Radiation: non-radiation Relieved By: + none Associated symptoms: + cough (mild) and + shortness of breath; no fever/chills The patient is a 33 year old male from [facility] with a history of HTN, V-tach, AICD present, syncope, and hypothyroidism who presents to the Emergency Room with complaints of shortness of breath. The patient states that at 9:30AM today he was walking back to his unit when he felt shortness of breath followed by a a "shock" and noticed his defibrillator went off. He states that his breathing did not improve after the shock. The patient was seen in the ED 2 weeks ago for the same issue. However, he admits that his defibrillator does not frequently go off. Additionally he complains of a mild cough but he denies fever. The patient offers no additional concerns at this time. Home Medications Home Medications Medication Instructions Recorded Confirmed Type aripiprazole 15 mg tablet 15 mg PO DAILY 06/16/19 09/03/19 History aspirin 81 mg tablet,delayed 81 mg PO DAILY 06/16/19 09/03/19 History release hydroxyzine HCl 25 mg tablet 25 mg PO HS 06/16/19 09/03/19 History levothyroxine 50 mcg capsule 50 mcg PO DAILY 06/16/19 09/03/19 History lisinopril 5 mg tablet 5 mg PO DAILY 06/16/19 09/03/19 History fluoxetine 20 mg PO DAILY 08/17/19 09/03/19 History carvedilol 37.5 mg PO BID #30 tab 08/18/19 09/03/19 Rx levalbuterol tartrate [Xopenex HFA] 2 inh INHALATION Q6H PRN 09/03/19 09/03/19 History warfarin 10 mg PO HS 09/03/19 09/03/19 History Allergies Allergy/AdvReac Type Severity Reaction Status Date / Time penicillin G Allergy Mild Unknown Unverified 09/03/19 20:08 Past Med/Surg History Medical History A-fib Asthma Cardiomyopathy Hernia HTN (hypertension) ICD (implantable cardioverter-defibrillator) in place [employer] subcutaneous ICD model A209, implanted 05/07/2016 Schizophrenia Surgical History History of cardiac defibrillator placement Social History Preferred Language: Maltese Communication Ability: Effective Hospital Nurse Required: No Beliefs That Will Affect Care: None Current Living Situation: Other Feels Safe at Home: Yes Smoking Status: Never smoker Hx Alcohol Use: No Hx Substance Use: No Review of Systems See HPI for pertinent positives & negatives. and A total of 10 systems reviewed and were otherwise negative Physical Exam Vital Signs Vital Signs - 24 hr 09/03/19 18:42 09/03/19 18:52 09/03/19 19:37 Temperature 37.1 C Temperature Source Oral Pulse Rate 118 H 109 H 101 H Pulse Rate from SpO2 Sensor 74 Respiratory Rate 16 19 Respiratory Effort / Characteristics Non-Labored Respiratory Depth Normal Respiratory Pattern Regular Blood Pressure 125/80 125/80 135/86 Blood Pressure Mean 95 91 Pulse Oximetry 98 98 Oxygen Delivery Method Room Air Sepsis Recent Fever Within 48 Hours No Sepsis New/Unexplained Change in Mental Status No Sepsis Action Taken by Nursing No Action Required 09/03/19 19:38 09/03/19 20:00 09/03/19 20:30 Temperature Temperature Source Pulse Rate 100 H Pulse Rate from SpO2 Sensor 75 Respiratory Rate 21 Respiratory Effort / Characteristics Respiratory Depth Respiratory Pattern Blood Pressure 135/86 Blood Pressure Mean 93 Pulse Oximetry 97 95 97 Oxygen Delivery Method Room Air Room Air Sepsis Recent Fever Within 48 Hours Sepsis New/Unexplained Change in Mental Status Sepsis Action Taken by Nursing 09/03/19 21:59 09/03/19 22:00 Temperature Temperature Source Pulse Rate 72 80 Pulse Rate from SpO2 Sensor 62 78 Respiratory Rate 20 17 Respiratory Effort / Characteristics Respiratory Depth Respiratory Pattern Blood Pressure 144/107 H Blood Pressure Mean 110 Pulse Oximetry 97 95 Oxygen Delivery Method Sepsis Recent Fever Within 48 Hours Sepsis New/Unexplained Change in Mental Status Sepsis Action Taken by Nursing GENERAL: Patient is in no acute distress. HEENT: No acute trauma, normocephalic atraumatic, mucous membranes moist, no nasal congestion, no scleral icterus. NECK: No stridor, no adenopathy, no meningismus, trachea is midline. LUNGS: Clear to auscultation bilaterally when listening anteriorly , no wheeze, no respiratory distress, no rhonchi, breath sounds equal. HEART: Mild tachycardia with an irregular rhythm. No murmurs. ABDOMEN: Soft, nontender, bowel sounds positive, no hernias, no peritonitis. EXTREMITIES: No cyanosis or edema, full range of motion of all the joints without pain or difficulty, no signs for acute trauma. NEUROLOGIC: Oriented x 3, no acute motor or sensory deficits, no focal weakness. SKIN: No rash, no jaundice, no diaphoresis. Course Course 1851: Past medical records reviewed. The patient was evaluated in room B08. A complete history and physical exam was performed. Old records revealed that when the patient was last seen in the ED it was thought that his defibrillator fired due to V-tach. 1918: Had to call a pacemaker major account representative. 2215: The major account representative from [employer] came and states that the patient was in sinus rhythm, went into v-tach, was shocked out of v-tach by the defibrillator, and then went into A-fib. The rep states that the defibrillator functioned normally but the patient was in v-tach. 2225: I spoke to Dr. Perez, [facility] Cardiology who states that he will see the patient in the hospital. The patient will need monitoring and needs to be given his dose of Coreg for tonight which was ordered. 2230: I spoke with Dr. Miller, [facility] Hospitalist who accepts the patient for admission. The patient verbally expressed understanding and agreement of the treatment plan. The patient will be evaluated for further treatment. Administered Medications Discontinued Medications Metoprolol Tartrate (Lopressor) 5 mg IV NOW STA Stop: 09/03/19 18:57 Last Admin: 09/03/19 19:37 Dose: 5 mg Documented by: [id number] Critical Care Time Critical Care Time: Yes Total Critical Care Time: 38 I have personally spent 38 minutes of critical care time in the direct managem ent of this patient. This includes bedside care, interpretation of diagnostic studies, and testing, discussion with consultants, patient, and family members, and other required patient management activities. This 38 minutes is in excess of all separately billable procedures. Medical Decision Making Differential Diagnosis Differential diagnosis includes but is not limited to A-fib, V-tach, SVT, CHF, [place], anemia, PNA, bronchitis. Medical Records Attestation: I reviewed the patient's medical records. Home Medications Current Medication List: was personally reviewed by me Laboratory Data Attestation: I reviewed the patient's lab results. Result diagrams: 09/03/19 22:01 09/03/19 20:49 Lab Results 09/03/19 09/03/19 09/03/19 Range/Units 19:45 19:45 20:49 WBC (4.8-10.8) K/uL RBC (4.7-6.1) M/uL Hgb (14.0-18.0) g/dL Hct (42-52) % MCV (80-100) fL MCH (25-34) pg MCHC (32-36) g/dL RDW Std Deviation (36.4-46.3) fL RDW Coeff of Rosangela (11.5-14.5) % Plt Count (130-400) K/uL MPV (7.4-10.4) fL PT 41.9 H (9.0-12.0) Seconds INR 4.6 H (0.9-1.1) APTT 47.6 H* (21.0-31.0) Seconds PTT Ratio 1.8 Sodium 140 (136-145) mmol/L Potassium 4.4 (3.5-5.1) mmol/L Chloride 110 H (98-107) mmol/L Carbon Dioxide 27 (21-32) mmol/L Anion Gap 3.0 (3-11) BUN 13 (7-18) mg/dl Creatinine 1.34 (0.6-1.4) mg/dl Est Cr Clr Drug Dosing 149.0 ml/min Est GFR ( Amer) 80.1 Est GFR (Non-Af Amer) 69.1 BUN/Creatinine Ratio 9.6 L (10-20) Glucose 104 H (70-99) mg/dl Calcium 8.9 (8.5-10.1) mg/dl Magnesium 1.9 (1.8-2.4) mg/dl Total Bilirubin 0.7 (0.2-1) mg/dl AST 20 (15-37) U/L ALT 26 (12-78) U/L Alkaline Phosphatase 122 H (45-117) U/L Troponin I < 0.015 (0-0.045) ng/ml Total Protein 6.8 (6.4-8.2) gm/dl Albumin 2.9 L (3.4-5.0) gm/dl Globulin 3.9 (2.5-4.0) gm/dl Albumin/Globulin Ratio 0.7 L (0.9-2) Specimen Hemolysis 09/03/19 Range/Units 22:01 WBC 5.15 (4.8-10.8) K/uL RBC 6.11 H (4.7-6.1) M/uL Hgb 18.2 H (14.0-18.0) g/dL Hct 54.5 H (42-52) % MCV 89.2 (80-100) fL MCH 29.8 (25-34) pg MCHC 33.4 (32-36) g/dL RDW Std Deviation 45.1 (36.4-46.3) fL RDW Coeff of Rosangela 13.8 (11.5-14.5) % Plt Count 273 (130-400) K/uL MPV 10.2 (7.4-10.4) fL PT (9.0-12.0) Seconds INR (0.9-1.1) APTT (21.0-31.0) Seconds PTT Ratio Sodium (136-145) mmol/L Potassium (3.5-5.1) mmol/L Chloride (98-107) mmol/L Carbon Dioxide (21-32) mmol/L Anion Gap (3-11) BUN (7-18) mg/dl Creatinine (0.6-1.4) mg/dl Est Cr Clr Drug Dosing ml/min Est GFR ( Amer) Est GFR (Non-Af Amer) BUN/Creatinine Ratio (10-20) Glucose (70-99) mg/dl Calcium (8.5-10.1) mg/dl Magnesium (1.8-2.4) mg/dl Total Bilirubin (0.2-1) mg/dl AST (15-37) U/L ALT (12-78) U/L Alkaline Phosphatase (45-117) U/L Troponin I (0-0.045) ng/ml Total Protein (6.4-8.2) gm/dl Albumin (3.4-5.0) gm/dl Globulin (2.5-4.0) gm/dl Albumin/Globulin Ratio (0.9-2) Specimen Hemolysis Imaging Data Radiologist's Impression: Radiology results as stated below per my review and the radiologist's interpretation: XR chest 1V portable HISTORY: Shortness of breath. COMPARISON: Chest 08/17/2019. FINDINGS: No pneumothorax. No pleural effusions. The heart remains moderately enlarged. No new focal lung consolidations to suggest pneumonia. There is mild central pulmonary vascular congestion without overt edema. IMPRESSION: No change in the cardiomegaly and mild congestive change. Electronically signed by: Saul Wise M.D. 09/03/2019 7:20 PM ECG Data Attestation: I personally reviewed and interpreted this ECG as follows: Indication: + SOB/dyspnea Rate (beats per minute): 108 Rhythm: + atrial fibrillation ECG ST segments: no ST elevation ECG Findings: + Other (QTc is 383); no PVCs Blood Pressure Blood Pressure Findings: Elevated blood pressure Blood Pressure Disposition: further management by hospitalist [facility] Narrative There is no leukocytosis or concerning anemia. INR is high at 4.6, he is over anticoagulated. No significant electrolyte abnormality or kidney failure. No worrisome liver enzyme elevation. EKG showed atrial fibrillation with a mild tachycardia, no acute ischemia. Cardiac enzyme testing x1 was not consistent with acute cardiac injury. Chest film showed cardiomegaly and some potential mild fluid overload, no pneumonia. The patient had his pacemaker/defibrillator interrogated by the [employer] [facility]. The patient had been in a sinus rhythm, went into V. tach, was appropriately defibrillated and then noted to be in an atrial fibrillation with a somewhat rapid rate. I did speak with cardiology. The patient is in need of hospitalization and monitoring. He may need some medication adjustment. The patient was given a 5 mg dose of IV Lopressor, this helped control the heart rate. He was then given his typical nighttime dose of Coreg, 37.5 mg orally. I spoke to the patient and the fpc guards. The patient is going to be hospitalized. Case management is involved. The on-call hospitalist was consulted. Impression & Plan Ventricular tachycardia, Shortness of breath, Defibrillator discharge, Atrial fibrillation with RVR Discharge Plan Visit Data Chief Complaint: Shortness of Breath/Dyspnea Stated Complaint: SOB ED Provider: Rommel Pyle Discharge Problem: Ventricular tachycardia, Shortness of breath, Defibrillator discharge, Atrial fibrillation with RVR Patient Disposition: Being Evaluated by Hospitalist Forms Stand Alone Forms: My [facility] Prescriptions Prescriptions: No Action aripiprazole 15 mg tablet 15 mg PO DAILY RF: 0 hydroxyzine HCl 25 mg tablet 25 mg PO HS RF: 0 aspirin 81 mg tablet,delayed release (DR/EC) 81 mg PO DAILY RF: 0 levothyroxine 50 mcg capsule 50 mcg PO DAILY RF: 0 lisinopril 5 mg tablet 5 mg PO DAILY RF: 0 fluoxetine 20 mg Capsule 20 mg PO DAILY RF: 0 carvedilol 25 mg Tablet 37.5 mg PO BID Qty: 30 RF: 0 levalbuterol tartrate [Xopenex HFA] 45 mcg/actuation Hfa Aerosol Inhaler 2 inh INHALATION Q6H PRN (Reason: Shortness Of Breath) RF: 0 warfarin 5 mg tablet 10 mg PO HS RF: 0 Referrals Referrals: Zackary HAN [Primary Care Provider] - The yesi's documentation has been prepared under my direction and personally reviewed by me in its entirety. I confirm that the note above accurately reflects all work, treatment, procedures, and medical decision making performed by me.
[2019-09-03 20:23] LABS: INR 4.6 (0.9-1.1); Partial Thromboplastin Ratio 1.8; Prothrombin Time 41.9 Seconds (9.0-12.0)
[2019-09-03 20:26] LABS: Partial Thromboplastin Time 47.6 Seconds (21.0-31.0)
[2019-09-03 20:30] LABS: Alanine Aminotransferase 26 U/L (12-78); Albumin Globulin Ratio 0.7 (0.9-2); Albumin Level 2.9 gm/dl (3.4-5.0); Alkaline Phosphatase 122 U/L (45-117); BUN Creatinine Ratio 9.6 (10-20); Bilirubin,Total 0.7 mg/dl (0.2-1); Blood Urea Nitrogen 13 mg/dl (7-18); Calcium 8.9 mg/dl (8.5-10.1); Carbon Dioxide 27 mmol/L (21-32); Chloride 110 mmol/L (98-107); Est GFR (African American) 80.1; Est GFR (Non-African American) 69.1; Globulin 3.9 gm/dl (2.5-4.0); Glucose 104 mg/dl (70-99); Sodium 140 mmol/L (136-145); Total Protein 6.8 gm/dl (6.4-8.2); Troponin I < 0.015 ng/ml (0-0.045)
[2019-09-03 21:30] LABS: Magnesium 1.9 mg/dl (1.8-2.4); Potassium 4.4 mmol/L (3.5-5.1)
[2019-09-03 22:10] LABS: Hematocrit (blood only) 54.5 % (42-52); Hemoglobin 18.2 g/dL (14.0-18.0); Mean Corpuscular Hemoglobin 29.8 pg (25-34); Mean Corpuscular Hgb Conc 33.4 g/dL (32-36); Mean Corpuscular Volume 89.2 fL (80-100); Mean Platelet Volume 10.2 fL (7.4-10.4); Platelet Count 273 K/uL (130-400); RDW Coefficient of Variation 13.8 % (11.5-14.5); RDW Standard Deviation 45.1 fL (36.4-46.3); Red Blood Count 6.11 M/uL (4.7-6.1); White Blood Count 5.15 K/uL (4.8-10.8)
[2019-09-03] MEDS ORDERED: carvediloL 25 MG TAB PO ONE (22:24)
[2019-09-03 22:51] LABS: Basophils # (auto) 0.01 K/uL (0-0.2); Basophils % (auto) 0.2 %; Eosinophils # (auto) 0.07 K/uL (0-0.5); Eosinophils % (auto) 1.4 %; Immature Granulocytes # (auto) 0.01 K/uL (0.00-0.02); Immature Granulocytes % (auto) 0.2 %; Lymphocytes % (auto) 60.2 %; Monocytes # (auto) 0.63 K/uL (0.11-0.59); Monocytes % (auto) 12.2 %; Neutrophils # (auto) 1.33 K/uL (1.4-6.5); Neutrophils % (auto) 25.8 %
[2019-09-03] MEDS ORDERED: KETOROLAC TROMETHAMINE 15 MG/ML VIAL IV PRN (22:56)
[2019-09-03] MEDS ORDERED: TRAMADOL HCL 50 MG TABLET PO PRN (22:56)
[2019-09-03] MEDS ORDERED: LEVALBUTEROL HCL 1.25 MG/3 ML NEB NEB PRN (22:56)
[2019-09-03] MEDS ORDERED: NITROGLYCERIN SL 0.4 MG/TAB TAB SL PRN (22:56)
[2019-09-03] MEDS ORDERED: ACETAMINOPHEN 325 MG TAB PO PRN (22:56)
[2019-09-03] MEDS ORDERED: methylPREDNISolone 125 MG/2 ML VIAL ONE (23:32)
--- NOTE | 2019-09-03 23:34 | History & Physical Report ---
Date of Service September 03, 2019 Assessment & Plan (1) Ventricular tachycardia: Obs tele Converted to A-fib Cardiology consulted. (2) Atrial fibrillation with RVR: Continue Coreg IV Lopressor given in ED which has stabilized rate Warfarin held due to INR 4.6 Check daily INR resume warfarin when appropriate. DVT prophylaxis = SCDs and covered by warfarin. (3) Defibrillator discharge: (4) Asthma: I feel there is a mild exacerbation. Perhaps he has viral bronchitis as he has had dry cough over few days. I will give Solumedrol 40mg IV Q 6 overnight Xopenex nebs prn (5) Hypothyroidism: continue levothyroxine (6) Schizophrenia: Continue Abilify, fluoxetine, and hydroxyzine. (7) HTN (hypertension): Continue lisinopril. History of Present Illness 33 y/o male from [facility] presented to the ED with SOB. He reports that around 0930 today, he felt SOB and felt a "shock". Interrogation of defibrillator revealed V-tach that was corrected to A-fib. HR is controlled when I saw the patient, but he is still complaining of SOB and difficulty taking a deep breath. No hypoxia. He does have a history of asthma. No F/C, N/V/D, chest pain, or lightheadedness. He uses warfarin for A-fib and INR is 4.6. Primary Care Provider: GUILLE La Joyagemini Allergies Allergy/AdvReac Type Severity Reaction Status Date / Time penicillin G Allergy Mild Unknown Unverified 09/03/19 20:08 Home Medications Home Medications Medication Instructions Recorded Confirmed Type aripiprazole 15 mg tablet 15 mg PO DAILY 06/16/19 09/03/19 History aspirin 81 mg tablet,delayed 81 mg PO DAILY 06/16/19 09/03/19 History release hydroxyzine HCl 25 mg tablet 25 mg PO HS 06/16/19 09/03/19 History levothyroxine 50 mcg capsule 50 mcg PO DAILY 06/16/19 09/03/19 History lisinopril 5 mg tablet 5 mg PO DAILY 06/16/19 09/03/19 History fluoxetine 20 mg PO DAILY 08/17/19 09/03/19 History carvedilol 37.5 mg PO BID #30 tab 08/18/19 09/03/19 Rx levalbuterol tartrate [Xopenex HFA] 2 inh INHALATION Q6H PRN 09/03/19 09/03/19 History warfarin 10 mg PO HS 09/03/19 09/03/19 History Past Med/Surg History Medical History A-fib Asthma Cardiomyopathy Hernia HTN (hypertension) ICD (implantable cardioverter-defibrillator) in place [employer] subcutaneous ICD model A209, implanted 05/07/2016 Schizophrenia Surgical History History of cardiac defibrillator placement Social History Preferred Language: Ghanaian Communication Ability: Effective Data Capture Clerk Required: No Beliefs That Will Affect Care: None Current Living Situation: Other Feels Safe at Home: Yes Smoking Status: Never smoker Hx Alcohol Use: No Hx Substance Use: No Review of Systems Review of Systems: Constitutional- no fever; no weight loss Eyes- no acute visual changes ENT- no sinus drainage; no pharyngitis Pulmonary- As in HPI, +dry cough Cardiac- As in HPI GI- no nausea, no vomiting, no diarrhea, no melena, no hematochezia - no dysuria, no hematuria Musculoskeletal- no arthralgias, no myalgias Derm- no rashes, no new skin lesions. Hematologic- no unusual bruising, no unusual bleeding Lymphatics- no adenopathy Endocrine- no polyuria or polydipsia; no heat or cold intolerance Neuro- no headaches, no focal neurologic symptoms Psych- no anxiety, no depression Physical Exam Physical Exam: General- adult male, NAD Head- atraumatic Eyes- PERRL, EOMI, anicteric ENT- oropharynx clear Neck- supple, no JVD, no adenopathy, no thyromegaly. Lungs- Expiratory wheezes noted b/l. No rhonchi or crackles. Heart- Irregular; no murmur, no gallop, no rub appreciated Abdomen- normal bowel sounds, soft, nontender. Extremities- no pretibial edema, no calf tenderness; peripheral pulses intact Neuro- alert, oriented x 3; PERRL, EOMI; slate picker II-XII grossly intact, non-focal. Skin- warm & dry Results & Data Vital Signs (Past 12 Hours) Vital Signs Temp Pulse Resp BP Pulse Ox 09/03/19 22:00 80 17 95 09/03/19 21:59 72 20 144/107 H 97 09/03/19 20:30 97 09/03/19 20:00 95 09/03/19 19:38 100 H 21 135/86 97 09/03/19 19:37 101 H 135/86 09/03/19 18:52 109 H 19 125/80 98 09/03/19 18:42 37.1 C 118 H 16 125/80 98 Laboratory Results Laboratory Results WBC 5.15 K/uL (4.8-10.8) 09/03/19 22:01 RBC 6.11 M/uL (4.7-6.1) H 09/03/19 22:01 Hgb 18.2 g/dL (14.0-18.0) H 09/03/19 22:01 Hct 54.5 % (42-52) H 09/03/19 22:01 MCV 89.2 fL (80-100) 09/03/19 22:01 MCH 29.8 pg (25-34) 09/03/19 22:01 MCHC 33.4 g/dL (32-36) 09/03/19 22:01 RDW Std Deviation 45.1 fL (36.4-46.3) 09/03/19 22:01 RDW Coeff of Rosangela 13.8 % (11.5-14.5) 09/03/19 22:01 Plt Count 273 K/uL (130-400) 09/03/19 22:01 MPV 10.2 fL (7.4-10.4) 09/03/19 22:01 Immature Gran % (Auto) 0.2 % 09/03/19 22:01 Neut % (Auto) 25.8 % 09/03/19 22:01 Lymph % (Auto) 60.2 % 09/03/19 22:01 Edwards % (Auto) 12.2 % 09/03/19 22:01 Eos % (Auto) 1.4 % 09/03/19 22:01 Baso % (Auto) 0.2 % 09/03/19 22:01 Immature Gran # (Auto) 0.01 K/uL (0.00-0.02) 09/03/19 22:01 Neut # (Auto) 1.33 K/uL (1.4-6.5) L 09/03/19 22:01 Lymph # (Auto) 3.10 K/uL (1.2-3.4) 09/03/19 22:01 Edwards # (Auto) 0.63 K/uL (0.11-0.59) H 09/03/19 22:01 Eos # (Auto) 0.07 K/uL (0-0.5) 09/03/19 22:01 Baso # (Auto) 0.01 K/uL (0-0.2) 09/03/19 22:01 PT 41.9 Seconds (9.0-12.0) H 09/03/19 19:45 INR 4.6 (0.9-1.1) H 09/03/19 19:45 APTT 47.6 Seconds (21.0-31.0) H* 09/03/19 19:45 PTT Ratio 1.8 09/03/19 19:45 Sodium 140 mmol/L (136-145) 09/03/19 19:45 Potassium 4.4 mmol/L (3.5-5.1) 09/03/19 20:49 Chloride 110 mmol/L (98-107) H 09/03/19 19:45 Carbon Dioxide 27 mmol/L (21-32) 09/03/19 19:45 Anion Gap 3.0 (3-11) 09/03/19 19:45 BUN 13 mg/dl (7-18) 09/03/19 19:45 Creatinine 1.34 mg/dl (0.6-1.4) 09/03/19 19:45 Est Cr Clr Drug Dosing 149.0 ml/min 09/03/19 19:45 Est GFR ( Amer) 80.1 09/03/19 19:45 Est GFR (Non-Af Amer) 69.1 09/03/19 19:45 BUN/Creatinine Ratio 9.6 (10-20) L 09/03/19 19:45 Glucose 104 mg/dl (70-99) H 09/03/19 19:45 Calcium 8.9 mg/dl (8.5-10.1) 09/03/19 19:45 Magnesium 1.9 mg/dl (1.8-2.4) 09/03/19 20:49 Total Bilirubin 0.7 mg/dl (0.2-1) 09/03/19 19:45 AST 20 U/L (15-37) 09/03/19 20:49 ALT 26 U/L (12-78) 09/03/19 19:45 Alkaline Phosphatase 122 U/L (45-117) H 09/03/19 19:45 Troponin I < 0.015 ng/ml (0-0.045) 09/03/19 19:45 Total Protein 6.8 gm/dl (6.4-8.2) 09/03/19 19:45 Albumin 2.9 gm/dl (3.4-5.0) L 09/03/19 19:45 Globulin 3.9 gm/dl (2.5-4.0) 09/03/19 19:45 Albumin/Globulin Ratio 0.7 (0.9-2) L 09/03/19 19:45 Specimen Hemolysis 09/03/19 20:49 Diagnostic Findings [place], [place] [phone] XRay Report Patient: KHLOE TRAN [id number] Date: 09/03/19 MR#: [id number]: BOX Rickey Acct ID:[id number]: Date: 1985[facility] Zip: [place] [id number] Age: 33Location: ED Sex: M Room/Bed: Att Phy:Diagnosis: SOB [facility]: [facility] Fam Phy:Interpreting Phy: Saul Wise MD Admit Phy: Ordering Phy: Rommel Pyle M.D. cc: ~ XR chest 1V portable HISTORY: Shortness of breath. COMPARISON: Chest 08/17/2019. FINDINGS: No pneumothorax. No pleural effusions. The heart remains moderately enlarged. No new focal lung consolidations to suggest pneumonia. There is mild central pulmonary vascular congestion without overt edema. IMPRESSION: No change in the cardiomegaly and mild congestive change. Electronically signed by: Saul Wise M.D. 09/03/2019 7:20 PM Dictated: 09/03/191918 Transcribed: 09/03/191918 Code Status & VTE Plan VTE Prophylaxis Plan VTE Prophylaxis will be ordered: Yes PG Care Time/CCT Total # of Minutes Spent Total Time Spent: 60 Total Time Spent with Patient: Total time spent is greater than 50% in coordination of care (as documented) at patient's floor/unit and/or counseling patient:
[2019-09-03] MEDS: FAMOTIDINE 20 MG TAB PO SCH (23:39)
[2019-09-03] MEDS: methylPREDNISolone 40 MG in SYRINGE 0 ML IV SCH (23:39)
[2019-09-04 05:33] LABS: Hematocrit (blood only) 56.8 % (42-52); Hemoglobin 18.7 g/dL (14.0-18.0); Mean Corpuscular Volume 91.2 fL (80-100); Mean Platelet Volume 10.2 fL (7.4-10.4); Platelet Count 297 K/uL (130-400); RDW Coefficient of Variation 13.7 % (11.5-14.5); RDW Standard Deviation 45.9 fL (36.4-46.3); Red Blood Count 6.23 M/uL (4.7-6.1)
[2019-09-04 05:43] LABS: Mean Corpuscular Hgb Conc 32.9 g/dL (32-36)
[2019-09-04 05:59] LABS: BUN Creatinine Ratio 7.1 (10-20); Blood Urea Nitrogen 10 mg/dl (7-18); Calcium 9.3 mg/dl (8.5-10.1); Carbon Dioxide 26 mmol/L (21-32); Chloride 108 mmol/L (98-107); Creatinine Clr Calc Pharmacy 137.1 ml/min; Est GFR (African American) 74.1; Est GFR (Non-African American) 63.9; Glucose 107 mg/dl (70-99); Magnesium 1.8 mg/dl (1.8-2.4); Potassium 4.4 mmol/L (3.5-5.1); Sodium 139 mmol/L (136-145)
[2019-09-04 06:04] LABS: Troponin I < 0.015 ng/ml (0-0.045)
[2019-09-04] MEDS: LEVOTHYROXINE SODIUM 50 MCG TABLET PO SCH (06:12)
[2019-09-04] MEDS: methylPREDNISolone 40 MG in SYRINGE 0 ML IV SCH ×2 (06:22→21:26)
[2019-09-04 07:27] LABS: INR 3.6 (0.9-1.1); Prothrombin Time 33.5 Seconds (9.0-12.0)
[2019-09-04] MEDS: lisinopriL 5 MG TAB PO SCH (08:11)
[2019-09-04] MEDS: ARIPiprazole 15 MG TAB PO SCH (08:11)
[2019-09-04] MEDS: FLUOXETINE HCL 20 MG CAP PO SCH (08:11)
[2019-09-04] MEDS: ASPIRIN 81 MG ECTAB PO SCH (08:11)
[2019-09-04] MEDS: FAMOTIDINE 20 MG TAB PO SCH ×2 (08:11→20:05)
[2019-09-04] MEDS: carvediloL 25 MG TAB PO SCH ×2 (08:11→20:05)
--- NOTE | 2019-09-04 10:36 | Hospitalist Progress Note ---
Date of Service September 04, 2019 Assessment & Plan (1) Ventricular tachycardia: difficult to determine based on his device detection if this was ventricular tachycardia or Afib RVR with aberrancy already on max dose of Coreg at 37.5mg BID will start on Tikosyn today, will need hospitalized through the weekend to observe for any arrhythmias cardiology following currently in afib with rates in 90's (2) Atrial fibrillation with RVR: Continue Coreg IV Lopressor given in ED which has stabilized rate Warfarin held due to INR 4.6, down to 3.6 today repeat INR in the morning (3) Defibrillator discharge: due to tachycardia, either V tach or Afib with aberrancy (4) Asthma: cut back on Solu Medrol to q12 today, transition to short course of Prednisone Xopenex nebs prn (5) Hypothyroidism: continue levothyroxine (6) Schizophrenia: Continue Abilify, fluoxetine, and hydroxyzine. (7) HTN (hypertension): Continue lisinopril. Subjective patient feeling fine, laying in bed, eating well no chest pain or pressure, no nausea, dyspnea is a little better discussed with Dr. Perez, patient needs anti-arrhythmic, will start on Tikosyn will need to be hospitalized for a few days to start it reviewed labs, INR is down to 3.6 CBC is stable, BMP shows Cr of 1.43 which is baseline Review of Systems Review of Systems: All systems reviewed & are unremarkable except as noted in HPI & below Physical Exam Constitutional: WD/WN, vitals as above Eyes: PERRL, conjunctivae normal, anicteric sclerae ENMT: external ear and nose normal, oropharynx normal Neck: trachea midline, no thyromegaly Respiratory: normal respiratory effort, lungs clear to auscultation Cardiovascular: Rate/Rhythm: regular rate and + irregularly irregular Heart Sounds: normal S1 and normal S2; no murmur Vessels: no JVD Extremities: normal capillary refill; no edema Gastrointestinal (Abdomen): normal bowel sounds, soft, nontender, no hepatosplenomegaly Musculoskeletal: no cyanosis or clubbing, extremities motor strength 5/5 Skin: no rashes, warm and dry Neurologic: patellar DTR's 2+ bilat, sensation intact and PERRL, EOMI, accommodation nl, no face palsy, no dysarthria Psychiatric: A+Ox3, euthymic affect Lymphatic: no cervical or axillary lymphadenopathy Results & Data Vital Signs (Past 12 Hours) Vital Signs Temp Pulse Pulse Resp BP BP Pulse Ox 09/04/19 09:00 135/102 H 09/04/19 08:00 36.6 C 105 H 105 H 22 98/83 L 96 09/04/19 04:00 36.7 C 82 18 114/77 95 09/04/19 00:15 36.9 C 71 20 126/88 97 09/03/19 23:47 69 17 155/89 H 100 Laboratory Results Laboratory Results - last 24 hr 09/03/19 09/03/19 09/03/19 19:45 19:45 20:49 WBC RBC Hgb Hct MCV MCH MCHC RDW Std Deviation RDW Coeff of Rosangela Plt Count MPV Immature Gran % (Auto) Neut % (Auto) Lymph % (Auto) Butts % (Auto) Eos % (Auto) Baso % (Auto) Immature Gran # (Auto) Neut # (Auto) Lymph # (Auto) Butts # (Auto) Eos # (Auto) Baso # (Auto) PT 41.9 H INR 4.6 H APTT 47.6 H* PTT Ratio 1.8 Sodium 140 Potassium 4.4 Chloride 110 H Carbon Dioxide 27 Anion Gap 3.0 BUN 13 Creatinine 1.34 Est Cr Clr Drug Dosing 149.0 Est GFR ( Amer) 80.1 Est GFR (Non-Af Amer) 69.1 BUN/Creatinine Ratio 9.6 L Glucose 104 H Calcium 8.9 Magnesium 1.9 Total Bilirubin 0.7 AST 20 ALT 26 Alkaline Phosphatase 122 H Troponin I < 0.015 Total Protein 6.8 Albumin 2.9 L Globulin 3.9 Albumin/Globulin Ratio 0.7 L Specimen Hemolysis 09/03/19 09/04/19 09/04/19 22:01 05:05 05:05 WBC 5.15 3.30 L RBC 6.11 H 6.23 H Hgb 18.2 H 18.7 H Hct 54.5 H 56.8 H MCV 89.2 91.2 MCH 29.8 30.0 MCHC 33.4 32.9 RDW Std Deviation 45.1 45.9 RDW Coeff of Rosangela 13.8 13.7 Plt Count 273 297 MPV 10.2 10.2 Immature Gran % (Auto) 0.2 Neut % (Auto) 25.8 Lymph % (Auto) 60.2 Butts % (Auto) 12.2 Eos % (Auto) 1.4 Baso % (Auto) 0.2 Immature Gran # (Auto) 0.01 Neut # (Auto) 1.33 L Lymph # (Auto) 3.10 Butts # (Auto) 0.63 H Eos # (Auto) 0.07 Baso # (Auto) 0.01 PT INR APTT PTT Ratio Sodium 139 Potassium 4.4 Chloride 108 H Carbon Dioxide 26 Anion Gap 5.0 BUN 10 Creatinine 1.43 H Est Cr Clr Drug Dosing 137.1 Est GFR ( Amer) 74.1 Est GFR (Non-Af Amer) 63.9 BUN/Creatinine Ratio 7.1 L Glucose 107 H Calcium 9.3 Magnesium 1.8 Total Bilirubin AST ALT Alkaline Phosphatase Troponin I < 0.015 Total Protein Albumin Globulin Albumin/Globulin Ratio Specimen Hemolysis 09/04/19 09/04/19 05:12 06:28 WBC RBC Hgb Hct MCV MCH MCHC RDW Std Deviation RDW Coeff of Rosangela Plt Count MPV Immature Gran % (Auto) Neut % (Auto) Lymph % (Auto) Butts % (Auto) Eos % (Auto) Baso % (Auto) Immature Gran # (Auto) Neut # (Auto) Lymph # (Auto) Butts # (Auto) Eos # (Auto) Baso # (Auto) PT 33.5 H INR 3.6 H APTT PTT Ratio Sodium Potassium Chloride Carbon Dioxide Anion Gap BUN Creatinine Est Cr Clr Drug Dosing Est GFR ( Amer) Est GFR (Non-Af Amer) BUN/Creatinine Ratio Glucose Calcium Magnesium Total Bilirubin AST ALT Alkaline Phosphatase Troponin I Total Protein Albumin Globulin Albumin/Globulin Ratio Specimen Hemolysis Medications Administered Current Inpatient Medications Acetaminophen (Tylenol) 650 mg PO Q4H PRN PRN Reason: mild pain or fever Stop: 10/03/19 22:55 Aripiprazole (Abilify) 15 mg PO DAILY [facility] Stop: 10/04/19 08:59 Last Admin: 09/04/19 08:11 Dose: 15 mg Documented by: Aspirin (Ecotrin Ectab) 81 mg PO DAILY [facility] Stop: 10/04/19 08:59 Last Admin: 09/04/19 08:11 Dose: 81 mg Documented by: Carvedilol (Coreg) 37.5 mg PO BID [facility] Stop: 10/04/19 08:59 Last Admin: 09/04/19 08:11 Dose: 37.5 mg Documented by: Famotidine (Pepcid) 20 mg PO BID [facility] Stop: 10/03/19 22:59 Last Admin: 09/04/19 08:11 Dose: 20 mg Documented by: Fluoxetine HCl (Prozac) 20 mg PO DAILY [facility] Stop: 10/04/19 08:59 Last Admin: 09/04/19 08:11 Dose: 20 mg Documented by: Hydroxyzine HCl (Vistaril) 25 mg PO HS [facility] Stop: 10/04/19 20:59 Methylprednisolone 40 mg/ (Syringe) 0.64 mls @ 1.5 mls/min IV Q6H [facility] Stop: 10/03/19 23:29 Last Admin: 09/04/19 06:22 Dose: 1.5 mls/min Documented by: Ketorolac Tromethamine (Toradol) 30 mg IV Q8H PRN PRN Reason: Severe Pain Stop: 09/08/19 22:55 Levalbuterol HCl (Xopenex 1.25mg/3ml Neb) 1.25 mg NEB Q4H PRN PRN Reason: Shortness Of Breath Or Wheezing Stop: 10/03/19 22:55 [facility] Stop: 10/04/19 06:29 Last Admin: 09/04/19 06:12 Dose: 50 mcg Documented by: Lisinopril (Zestril) 5 mg PO DAILY [facility] Stop: 10/04/19 08:59 Last Admin: 09/04/19 08:11 Dose: 5 mg Documented by: Nitroglycerin (Nitrostat) 0.4 mg SL PRN PRN PRN Reason: Chest Pain Stop: 10/03/19 22:55 Tramadol HCl (Ultram) 50 mg PO Q6H PRN PRN Reason: Moderate Pain Stop: 10/03/19 22:55 PG Care Time/CCT Total # of Minutes Spent Total Time Spent with Patient: Total time spent is greater than 50% in coordi nation of care (as documented) at patient's floor/unit and/or counseling patient:
--- NOTE | 2019-09-04 10:48 | Cardiology Consultation ---
Date of Consultation September 04, 2019 History of Present Illness Attending Physician: Moshe Hicks DO Patient was walking from 1 unit to the next. He went through a door. The next thing he knows the date it was at his heart was racing he describes it as fast and as best he can remember regular. He started to feel weak and mildly lightheaded and then his defibrillator went off. He did not lose consciousness. This episode was similar to 2 weeks ago. He denies any chest pain or chest pressure with activity he does note since he has been in correction he feels like he is more short of breath with activity and is just more fatigued. He notes some mild lower extremity edema which is worse at the end of the day and resolved in the morning. He is aware of short bursts of palpitations lasting a couple of seconds as well as his 2 extended episodes that he has had. He denies a cough fevers chills sweats his appetite stable his weight is stable has any PND orthopnea sleeps on 2 pillows chronically. The rest of a complete review of systems otherwise negative Allergies Allergy/AdvReac Type Severity Reaction Status Date / Time penicillin G Allergy Mild Unknown Unverified 09/03/19 20:08 Home Medications Home Medications Medication Instructions Recorded Confirmed Type aripiprazole 15 mg tablet 15 mg PO DAILY 06/16/19 09/03/19 History aspirin 81 mg tablet,delayed 81 mg PO DAILY 06/16/19 09/03/19 History release hydroxyzine HCl 25 mg tablet 25 mg PO HS 06/16/19 09/03/19 History levothyroxine 50 mcg capsule 50 mcg PO DAILY 06/16/19 09/03/19 History lisinopril 5 mg tablet 5 mg PO DAILY 06/16/19 09/03/19 History fluoxetine 20 mg PO DAILY 08/17/19 09/03/19 History carvedilol 37.5 mg PO BID #30 tab 08/18/19 09/03/19 Rx levalbuterol tartrate [Xopenex HFA] 2 inh INHALATION Q6H PRN 09/03/19 09/03/19 History warfarin 10 mg PO HS 09/03/19 09/03/19 History Patient History Medical History A-fib Asthma Cardiomyopathy Hernia HTN (hypertension) ICD (implantable cardioverter-defibrillator) in place [employer] subcutaneous ICD model A209, implanted 05/07/2016 Schizophrenia Surgical History History of cardiac defibrillator placement Social History Preferred Language: [place] Communication Ability: Effective Reimbursement Rep Required: No Beliefs That Will Affect Care: None Current Living Situation: Other Current Living Situation Comment: [facility] Feels Safe at Home: Yes Smoking Status: Unknown if ever smoked Hx Alcohol Use: No Hx Substance Use: No Results & Data Vital Signs (Past 12 Hours) Vital Signs Temp Pulse Pulse Resp BP BP Pulse Ox 09/04/19 09:00 135/102 H 09/04/19 08:00 36.6 C 105 H 105 H 22 98/83 L 96 09/04/19 04:00 36.7 C 82 18 114/77 95 09/04/19 00:15 36.9 C 71 20 126/88 97 09/03/19 23:47 69 17 155/89 H 100 he is awake alert and oriented x3 he is in no acute distress HEENT: Mildly reduced carotid upstrokes no evidence of carotid bruits jugular venous pressure cannot be assessed due to his Eyes sclerae anicteric his hearing is normal Lungs: Clear to auscultation bilaterally no rales rhonchi or wheezing Heart: Irregular irregular rhythm no appreciable murmurs rubs Abdomen: Soft nontender distended positive bowel sounds Extremities no clubbing cyanosis or edema Psychiatric his affect appeared appropriate Neurologic he is awake alert and oriented x3 Impressions: 1. Status post ICD shock with a subcutaneous defibrillator 2. ICD shock 2 weeks ago 3. Interrogation is consistent with a fast regular heart rhythm question ventricular tachycardia versus A. fib with aberrancy with a rapid ventricular rate 4. Chronic Coumadin anticoagulation for paroxysmal atrial fibrillation 5. Known nonischemic cardiomyopathy potentially related to hypertensive heart disease Our options at this point are challenging. He is too young to be on amiodarone at this point unless he continues to fail medical therapy. Other options include sotalol or Tikosyn. The concern with sotalol is the beta effect and the amount of sinus bradycardia he will have with it. The additional concern is that he is chronic kidney disease although based on his size and the fact that he is -Serbian his creatinine clearance at this point remains above 60. In discussion with the EP service as he is followed by Dr. Castelan as an outpatient we will start Tikosyn 500 mcg twice daily. His potassium is stable we will have a daily BMP and magnesium. He will have an EKG 1 hour after each dose of sotalol to assess for QT prolongation. His INR is therapeutic. If he were to convert with Tikosyn back to sinus rhythm from atrial fibrillation the risk of stroke is small. If he remains in atrial fibrillation with Tikosyn loading then cardioversion could be performed before he is discharged. Currently he is unaware that he is in atrial fibrillation. All this was discussed with the hospitalist service. Pharmacy will make available the [place] and guidelines with regards to QT prolongation and an acceptable amount of QT prolongation with each dose.
[2019-09-04] MEDS: LEVALBUTEROL TARTRATE 15 GM HFA.AER.AD INH PRN (16:59)
[2019-09-04] MEDS ORDERED: ALUMINUM/MAGNESIUM SUSP 30 ML UDC PO STA (17:12)
[2019-09-04] MEDS ORDERED: ALUMINUM/MAGNESIUM SUSP 30 ML UDC PO PRN (20:00)
[2019-09-04] MEDS: DOFETILIDE 125 MCG CAPSULE PO SCH (20:04)
[2019-09-05 05:48] LABS: Hematocrit (blood only) 54.5 % (42-52); Hemoglobin 18.5 g/dL (14.0-18.0); Mean Corpuscular Hemoglobin 30.3 pg (25-34); Mean Corpuscular Hgb Conc 33.9 g/dL (32-36); Mean Corpuscular Volume 89.3 fL (80-100); Mean Platelet Volume 9.9 fL (7.4-10.4); Platelet Count 315 K/uL (130-400); RDW Coefficient of Variation 13.6 % (11.5-14.5); RDW Standard Deviation 44.6 fL (36.4-46.3); White Blood Count 8.71 K/uL (4.8-10.8)
[2019-09-05] MEDS: LEVOTHYROXINE SODIUM 50 MCG TABLET PO SCH (05:48)
[2019-09-05 05:57] LABS: INR 3.2 (0.9-1.1); Prothrombin Time 29.8 Seconds (9.0-12.0)
[2019-09-05 06:16] LABS: BUN Creatinine Ratio 10.8 (10-20); Calcium 9.4 mg/dl (8.5-10.1); Creatinine Clr Calc Pharmacy 128.7 ml/min; Est GFR (African American) 68.2; Est GFR (Non-African American) 58.9; Magnesium 1.8 mg/dl (1.8-2.4); Potassium 4.3 mmol/L (3.5-5.1)
[2019-09-05] MEDS: ARIPiprazole 15 MG TAB PO SCH (08:52)
[2019-09-05] MEDS: lisinopriL 5 MG TAB PO SCH (08:52)
[2019-09-05] MEDS: ASPIRIN 81 MG ECTAB PO SCH (08:52)
[2019-09-05] MEDS: FLUOXETINE HCL 20 MG CAP PO SCH (08:53)
[2019-09-05] MEDS: carvediloL 25 MG TAB PO SCH ×2 (08:53→20:14)
[2019-09-05] MEDS: FAMOTIDINE 20 MG TAB PO SCH ×2 (08:53→20:13)
[2019-09-05] MEDS: methylPREDNISolone 40 MG in SYRINGE 0 ML IV SCH ×2 (08:54→20:13)
[2019-09-05] MEDS: DOFETILIDE 125 MCG CAPSULE PO SCH ×2 (08:54→20:15)
--- NOTE | 2019-09-05 09:17 | Hospitalist Progress Note ---
Date of Service September 05, 2019 Assessment & Plan (1) Ventricular tachycardia: difficult to determine based on his device detection if this was ventricular tachycardia or Afib RVR with aberrancy already on max dose of Coreg at 37.5mg BID continue on Tikosyn, will need hospitalized through the weekend to observe for any arrhythmias cardiology following currently in afib with rates in 90's (2) Atrial fibrillation with RVR: Continue Coreg IV Lopressor given in ED which has stabilized rate Warfarin held due to INR 4.6, down to 3.2 today repeat INR in the morning (3) Defibrillator discharge: due to tachycardia, either V tach or Afib with aberrancy (4) Asthma: change to Prednisone tomorrow Xopenex nebs prn (5) HTN (hypertension): BP quite high the past 24 hours on max dose of Coreg will increase Lisinopril to 20mg monitor for response (6) Constipation: add Miralax daily until he moves bowels (7) Hypothyroidism: continue levothyroxine (8) Schizophrenia: Continue Abilify, fluoxetine, and hydroxyzine. Subjective patient breathing a little better, still feels tight with some occasional wheezing no real cough, no chest pain or pressure eating well, c/o constipation no arrhythmias on the monitor reviewed labs, INR is 3.2, still hold Coumadin BP quite high, will increase Lisinopril discussed with Dr. Perez, continue to monitor inpatient on Tikosyn, will touch base with cardiology tomorrow on how long to keep hospitalized Review of Systems Review of Systems: All systems reviewed & are unremarkable except as noted in HPI & below Physical Exam Constitutional: WD/WN, vitals as above Eyes: PERRL, conjunctivae normal, anicteric sclerae ENMT: external ear and nose normal, oropharynx normal Neck: trachea midline, no thyromegaly Respiratory: normal respiratory effort, lungs clear to auscultation Cardiovascular: Rate/Rhythm: regular rate and + irregularly irregular Heart Sounds: normal S1 and normal S2; no murmur Vessels: no JVD Extremities: normal capillary refill; no edema Gastrointestinal (Abdomen): normal bowel sounds, soft, nontender, no hepatosplenomegaly Musculoskeletal: no cyanosis or clubbing, extremities motor strength 5/5 Skin: no rashes, warm and dry Neurologic: patellar DTR's 2+ bilat, sensation intact and PERRL, EOMI, accommodation nl, no face palsy, no dysarthria Psychiatric: A+Ox3, euthymic affect Lymphatic: no cervical or axillary lymphadenopathy Results & Data Vital Signs (Past 12 Hours) Vital Signs Temp Pulse Pulse Resp BP BP Pulse Ox 09/05/19 02:55 36.5 C 79 19 187/77 H 95 09/04/19 23:20 89 09/04/19 23:04 36.8 C 19 158/110 H 98 Laboratory Results Laboratory Results - last 24 hr 09/04/19 09/04/19 09/05/19 00:20 12:48 05:33 WBC 8.71 RBC 6.10 Hgb 18.5 H Hct 54.5 H MCV 89.3 MCH 30.3 MCHC 33.9 RDW Std Deviation 44.6 RDW Coeff of Rosangela 13.6 Plt Count 315 MPV 9.9 PT INR Sodium Potassium Chloride Carbon Dioxide Anion Gap BUN Creatinine Est Cr Clr Drug Dosing Est GFR ( Amer) Est GFR (Non-Af Amer) BUN/Creatinine Ratio Glucose Calcium Magnesium Troponin I < 0.015 Nasal Screen MRSA (PCR) Negative 09/05/19 09/05/19 05:33 05:33 WBC RBC Hgb Hct MCV MCH MCHC RDW Std Deviation RDW Coeff of Rosangela Plt Count MPV PT 29.8 H INR 3.2 H Sodium 137 Potassium 4.3 Chloride 107 Carbon Dioxide 25 Anion Gap 6.0 BUN 17 D Creatinine 1.53 H Est Cr Clr Drug Dosing 128.7 Est GFR ( Amer) 68.2 Est GFR (Non-Af Amer) 58.9 BUN/Creatinine Ratio 10.8 Glucose 148 H Calcium 9.4 Magnesium 1.8 Troponin I Nasal Screen MRSA (PCR) Medications Administered Current Inpatient Medications Acetaminophen (Tylenol) 650 mg PO Q4H PRN PRN Reason: mild pain or fever Stop: 10/03/19 22:55 Al Hydrox/Mg Hydrox/Simethicone (Maalox) 15 ml PO Q6H PRN PRN Reason: Dyspepsia Stop: 10/04/19 19:59 Aripiprazole (Abilify) 15 mg PO DAILY [facility] Stop: 10/04/19 08:59 Last Admin: 09/05/19 08:52 Dose: 15 mg Documented by: Aspirin (Ecotrin Ectab) 81 mg PO DAILY [facility] Stop: 10/04/19 08:59 Last Admin: 09/05/19 08:52 Dose: 81 mg Documented by: Carvedilol (Coreg) 37.5 mg PO BID [facility] Stop: 10/04/19 08:59 Last Admin: 09/05/19 08:53 Dose: 37.5 mg Documented by: Dofetilide (Tikosyn) 500 mcg PO BID [facility] Stop: 10/04/19 20:59 Last Admin: 09/05/19 08:54 Dose: 500 mcg Documented by: Famotidine (Pepcid) 20 mg PO BID [facility] Stop: 10/03/19 22:59 Last Admin: 09/05/19 08:53 Dose: 20 mg Documented by: Fluoxetine HCl (Prozac) 20 mg PO DAILY [facility] Stop: 10/04/19 08:59 Last Admin: 09/05/19 08:53 Dose: 20 mg Documented by: Hydroxyzine HCl (Vistaril) 25 mg PO HS [facility] Stop: 10/04/19 20:59 Last Admin: 09/04/19 20:06 Dose: 25 mg Documented by: Methylprednisolone 40 mg/ (Syringe) 0.64 mls @ 1.5 mls/min IV Q12 [facility] Stop: 09/05/19 23:59 Last Admin: 09/05/19 08:54 Dose: 1.5 mls/min Documented by: Ketorolac Tromethamine (Toradol) 30 mg IV Q8H PRN PRN Reason: Severe Pain Stop: 09/08/19 22:55 Levalbuterol HCl (Xopenex Hfa) 2 puffs INH QID PRN PRN Reason: Shortness Of Breath Or Wheezing Stop: 09/07/19 16:10 Last Admin: 09/04/19 16:59 Dose: 2 puffs Documented by: Levothyroxine Sodium (Synthroid) 50 mcg PO DAILYBB [facility] Stop: 10/04/19 06:29 Last Admin: 09/05/19 05:48 Dose: 50 mcg Documented by: Lisinopril (Zestril) 20 mg PO DAILY [facility] Stop: 10/05/19 09:29 Nitroglycerin (Nitrostat) 0.4 mg SL PRN PRN PRN Reason: Chest Pain Stop: 10/03/19 22:55 Prednisone (Prednisone) 40 mg PO QAM [facility] Stop: 10/06/19 08:59 Tramadol HCl (Ultram) 50 mg PO Q6H PRN PRN Reason: Moderate Pain Stop: 10/03/19 22:55 PG Care Time/CCT Total # of Minutes Spent Total Time Spent with Patient: Total time spent is greater than 50% in coordination of care (as documented) at patient's floor/unit and/or counseling patient:
[2019-09-05] MEDS ORDERED: LEVALBUTEROL HCL 1.25 MG/3 ML NEB INH PRN (09:33)
[2019-09-05] MEDS: lisinopriL 20 MG TAB PO SCH (10:54)
[2019-09-05] MEDS: POLYETHYLENE (MIRALAX) 17 GM PACK PO SCH (10:54)
--- NOTE | 2019-09-05 18:37 | Cardiology Progress Note ---
Date of Service September 05, 2019 Subjective Patient examined this am and denies any chest pain,SOB palpitations or any furt her shocks from his device. He is resting comfortably without any complaints. Physical Exam Constitutional: WD/WN, vitals as above Eyes: PERRL, conjunctivae normal, anicteric sclerae Neck: trachea midline, no thyromegaly Respiratory: normal respiratory effort, lungs clear to auscultation Cardiovascular: Rate/Rhythm: regular rate and regular rhythm Heart Sounds: normal S1 Gastrointestinal (Abdomen): normal bowel sounds, soft, nontender, no hepatosplenomegaly Neurologic: Grossly nonfocal Results & Data Vital Signs (Past 12 Hours) Vital Signs Temp Pulse Resp BP Pulse Ox 09/05/19 15:52 36.8 C 98 H 22 166/108 H 95 09/05/19 08:00 36.7 C 83 18 165/95 H 98 Impression: 1. Status post ICD shock 2. Paroxysmal atrial fibrillation 3. Morbid obesity 4. Nonischemic cardiomyopathy 5. HTN Plan: 1. No further shocks. Device interrrogation difficult to determine if VT versus Afib with RVR and aberrant conduction. 2. We will continue with Tikosyn and continue to monitor the patient on telemetry as well as getting EKG 1 hour after each dose of Tikosyn. We will continue to monitor his QT interval monitor his daily electrolytes. He did convert to sinus rhythm. Dose adjustment or discontinuation may need to be instituted for increasing or excessive prolongation of QTc beyond 500 ms He is currently on Coumadin for oral anticoagulation with his INR being 3.6 today. 3. Recommend weight loss, dietary consultation 4. We will continue with the current regimen 5. Bp was not at goal today. Reassess and may need adjustment to current regimen. Recommend low sodium diet. If you have any questions, please feel free to contact me and than you for allowing our cardiology team to take care of this patient.
[2019-09-06] MEDS: LEVOTHYROXINE SODIUM 50 MCG TABLET PO SCH (06:08)
[2019-09-06 06:13] LABS: INR 2.2 (0.9-1.1); Prothrombin Time 21.6 Seconds (9.0-12.0)
[2019-09-06] MEDS: carvediloL 25 MG TAB PO SCH (08:18)
[2019-09-06] MEDS: ARIPiprazole 15 MG TAB PO SCH (08:18)
[2019-09-06] MEDS: FLUOXETINE HCL 20 MG CAP PO SCH (08:18)
[2019-09-06] MEDS: lisinopriL 20 MG TAB PO SCH (08:18)
[2019-09-06] MEDS: FAMOTIDINE 20 MG TAB PO SCH (08:18)
[2019-09-06] MEDS: ASPIRIN 81 MG ECTAB PO SCH (08:18)
[2019-09-06] MEDS: LEVALBUTEROL TARTRATE 15 GM HFA.AER.AD INH PRN (08:19)
[2019-09-06] MEDS: POLYETHYLENE (MIRALAX) 17 GM PACK PO SCH (08:19)
[2019-09-06] MEDS: DOFETILIDE 125 MCG CAPSULE PO SCH (08:20)
[2019-09-06] MEDS ORDERED: predniSONE 20 MG TAB PO SCH (09:00)
--- NOTE | 2019-09-06 11:30 | Discharge Summary ---
Date of Service September 06, 2019 Admission HPI Per Admitting Provider 33 y/o male from [facility] presented to the ED with SOB. He reports that around 0930 today, he felt SOB and felt a "shock". Interrogation of defibrillator revealed V-tach that was corrected to A-fib. HR is controlled when I saw the patient, but he is still complaining of SOB and difficulty taking a deep breath. No hypoxia. He does have a history of asthma. No F/C, N/V/D, chest pain, or lightheadedness. He uses warfarin for A-fib and INR is 4.6. Primary Care Provider: [facility] Principal Diagnosis Tachyarrhythmia, V tach vs atrial fibrillation with aberrancy Discharge Exam Constitutional WD/WN, vitals as above Eyes PERRL, conjunctivae normal, anicteric sclerae ENMT external ear and nose normal, oropharynx normal Neck trachea midline, no thyromegaly Respiratory normal respiratory effort, lungs clear to auscultation Cardiovascular Rate/Rhythm: regular rate and regular rhythm Heart Sounds: normal S1 and normal S2; no murmur Vessels: no JVD Extremities: normal capillary refill; no edema Gastrointestinal (Abdomen) normal bowel sounds, soft, nontender, no hepatosplenomegaly Musculoskeletal no cyanosis or clubbing, extremities motor strength 5/5 Skin no rashes, warm and dry Neurologic patellar DTR's 2+ bilat, sensation intact and PERRL, EOMI, accommodation nl, no face palsy, no dysarthria Psychiatric A+Ox3, euthymic affect Lymphatic no cervical or axillary lymphadenopathy Discharge Data Allergies Allergy/AdvReac Type Severity Reaction Status Date / Time penicillin G Allergy Mild Unknown Unverified 09/03/19 20:08 Consultations 09/03/19 22:29 ED Decision to Admit Stat 09/04/19 00:28 Consult Cardiology Routine Hospital Course (1) Ventricular tachycardia: difficult to determine based on his device detection if this was ventricular tachycardia or Afib RVR with aberrancy already on max dose of Coreg at 37.5mg BID started on Tikosyn, tolerated well over the weekend converted to normal sinus rhythm cardiology following, they are okay with patient going back to [facility] continue on Tikosyn 500mg BID, provided [facility] with three day supply can follow up with cardiology (2) Atrial fibrillation with RVR: Continue Coreg IV Lopressor given in ED which has stabilized rate Warfarin held due to INR 4.6, down to 2.2 today resume Coumadin on discharge started on Tikosyn, converted to sinus rhythm (3) Defibrillator discharge: due to tachycardia, either V tach or Afib with aberrancy (4) Asthma: change to Prednisone on day of discharge complete a brief taper Xopenex inhaler PRN (5) HTN (hypertension): BP elevated during stay on max dose of Coreg increased Lisinopril to 20mg will continue higher dose (6) Constipation: add Miralax daily until he moves bowels (7) Hypothyroidism: continue levothyroxine (8) Schizophrenia: Continue Abilify, fluoxetine, and hydroxyzine. Total Time Total Time Spent Total Time Spent (In Minutes): 35 minutes Total Time Includes: Examination of the Patient, Discharge Planning, Medication Reconciliation and Communication With Other Providers (Dr. Castelan) Discharge Plan Discharge Items [facility] Reason For Visit: V-TACH, DEFIBRILLATOR DISCHARGE Discharge Diagnosis: Ventricular tachycardia vs atrial fibrillation with aberrancy Defibrillator discharge Acute asthma exacerbation Condition on Discharge: Good Goals: finish course of Prednisone for acute asthma continue Tikosyn to maintain sinus rhythm Activity: Resume your previous activity Non-emergency contact: Primary Care Provider and Piggery Worker Call non-emergency contact if: you have any medication questions, your symptoms worsen and you have a fever Follow-up/Referrals: Zackary HAN [Primary Care Provider] - Diet: Heart Healthy Add Attending Provider Instructions: Medications: - TIKOSYN: take 500mg twice a day, this is to maintain normal sinus rhythm and prevent ventricular tachycardia - PREDNISONE: for asthma, will taper over the next 8 days, see below - LISINOPRIL: dose increased from 5mg to 20mg daily, continue on this dose Arrhythmia with defibrillator shock either ventricular tachycardia or atrial fibrillation with aberrancy resolved, converted to sinus rhythm with Tikosyn will continue on Tikosyn 500mg twice a day, recommend follow up with Dr. Dhillon er, cardiology, in several weeks Asthma: mild exacerbation, responded well to steroids, will send on Prednisone taper, 40mg daily, decrease by 10mg every 2 days until stopped Hypertension: continue coreg 37.5 BID and increased lisinopril to 20mg daily Pending Studies at Discharge: No Stand-Alone Forms: My [facility] Skilled Items Patient informed of condition?: Yes Discharge Level of Care: Other Communicable Disease: No Discharge Prognosis: Stable Lines: None Urinary Catheter: No Medications and DC Order Prescriptions: New lisinopril 20 mg Tablet 20 mg PO DAILY 30 Days Qty: 30 RF: 3 dofetilide [Tikosyn] 125 mcg Capsule 500 mcg PO BID 30 Days Qty: 240 RF: 3 prednisone 10 mg tablet 40 mg PO QAM 12 Days Qty: 20 RF: 0 Continued aripiprazole 15 mg tablet 15 mg PO DAILY RF: 0 hydroxyzine HCl 25 mg tablet 25 mg PO HS RF: 0 aspirin 81 mg tablet,delayed release (DR/EC) 81 mg PO DAILY RF: 0 levothyroxine 50 mcg capsule 50 mcg PO DAILY RF: 0 fluoxetine 20 mg Capsule 20 mg PO DAILY RF: 0 carvedilol 25 mg Tablet 37.5 mg PO BID Qty: 30 RF: 0 levalbuterol tartrate [Xopenex HFA] 45 mcg/actuation Hfa Aerosol Inhaler 2 inh INHALATION Q6H PRN (Reason: Shortness Of Breath) RF: 0 warfarin 5 mg tablet 10 mg PO HS RF: 0 Discontinued lisinopril 5 mg tablet 5 mg PO DAILY RF: 0 Discharge Orders: Discharge Order (Routine); Ordered 09/06/19 Ordered By: Moshe Hicks Admission Data Admit Date/Time: 09/05/19 07:28 Attending Provider: Moshe Hicks Admit Provider: Cr Miller Primary Care Provider: Zackary HAN Other Providers: Cr Miller ; Nadeem Perez Other Interventions: Discharge Summary Assessment (RN) Last Done: 09/06/19 13:26 DC Date/Time DO NOT enter until pt leaves facility: 09/06/19 15:15
--- NOTE | 2019-09-06 12:47 | Cardiology Progress Note ---
Date of Service September 06, 2019 Assessment & Plan (1) Ventricular tachycardia: I reviewed what available recordings were in his record. Not clear to me that this represented definite ventricular tachycardia, but reportedly had a change in morphology and regularization of the ventricular rate. He will continue on high-dose carvedilol. Will start him on dofetilide. He appears to be tolerating the highest dose without significant prolongation of the QTC. I think he can be discharged on 500 micrograms twice daily. (2) Atrial fibrillation with RVR: He converted to sinus rhythm this morning. He did have some higher ventricular rates associated with the arrhythmia. Given his cardiomyopathy employment of calcium channel blockers less desirable. Verapamil is contraindicated in the setting of dofetilide use. I think we will continue to m onitor him on antiarrhythmic therapy and high dose carvedilol. (3) Cardiomyopathy: On high-dose carvedilol and lisinopril. He seems well compensated overall . His degree of LV dysfunction is intermediate in severity. Subjective This morning the patient claims to be feeling tired. He was not aware of any palpitations currently. He has not been out of bed for obvious reasons. No chest pain. No breathing difficulty. Review of Systems Review of Systems: Per HPI Physical Exam Physical Exam: The patient is alert and oriented. Mood and affect appeared normal. He answered all questions appropriately. HEENT: Pupils are equal and reactive to light and accommodation. Extraocular movements are intact. The sclerae are anicteric. Neuro: Cranial nerves intact Neck: Obese Lungs: Clear to auscultation bilaterally. He has good air movement without use of accessory muscles. No rales wheezes or rhonchi. Cardiac: Heart demonstrates a regular rate and rhythm. Normal S1 and S2. No murmurs on examination. Pulses: The patient has palpable radial pulses bilaterally that are equal in intensity Extremities: There was no evidence of hypoperfusion. There is no cyanosis or clubbing. There is no edema. Skin: I did not appreciate any rashes on examination today. Results & Data Vital Signs (Past 12 Hours) Vital Signs Temp Pulse Resp BP Pulse Ox 09/06/19 11:00 36.7 C 62 18 146/79 H 95 09/06/19 07:29 36.3 C L 64 20 142/84 H 97 09/06/19 04:00 36.6 C 60 18 175/83 H 96 Laboratory Results Abnormal Lab Results 09/06/19 09/06/19 05:37 05:37 PT 21.6 H INR 2.2 H Magnesium 2.2 ECG Additional Comments: Reviewed telemetry did not reveal any significant arrhythmia. Patient did convert to sinus rhythm late last evening. PG Care Time/CCT Total # of Minutes Spent Total Time Spent with Patient: Total time spent is greater than 50% in coordination of care (as documented) at patient's floor/unit and/or counseling patient:
[2019-09-06] MEDS ORDERED: Nursing to Pharmacy Communication ONE (14:41)
[2019-09-06] MEDS ORDERED: DOFETILIDE 125 MCG CAPSULE PO SCH (15:00)
[2019-09-06] MEDS ORDERED: WARFARIN SOD 10 MG TAB PO SCH (16:00)
== END 2019-09-06 15:15 | DRG 309 ==
LOC: ED 18:42 → 1E 18:42 → SUATTDRO 22:56 → 1E 23:58 → 2S 09-04 18:57

== ENCOUNTER 2021-11-26 21:31 | Inpatient (IN) ==
[2021-11-26] MEDS ORDERED: ACETAMINOPHEN 500 MG TAB PO STA (21:56)
[2021-11-26] MEDS ORDERED: ALBUT/IPRATROP 3MG/0.5MG NEB 3 ML VIAL NEB STA (21:56)
[2021-11-26 22:19] LABS: Basophils # (auto) 0.01 K/uL (0-0.2); Basophils % (auto) 0.1 %; Hematocrit (blood only) 48.7 % (42-52); Hemoglobin 15.6 g/dL (14.0-18.0); Immature Granulocytes # (auto) 0.01 K/uL (0.00-0.02); Immature Granulocytes % (auto) 0.1 %; Lymphocytes # (auto) 1.16 K/uL (1.2-3.4); Lymphocytes % (auto) 17.2 %; Mean Corpuscular Hemoglobin 26.5 pg (25-34); Mean Corpuscular Volume 82.7 fL (80-100); Monocytes # (auto) 0.92 K/uL (0.11-0.59); Monocytes % (auto) 13.6 %; Neutrophils # (auto) 4.66 K/uL (1.4-6.5); Platelet Count 278 K/uL (130-400); RDW Coefficient of Variation 16.1 % (11.5-14.5); RDW Standard Deviation 48.8 fL (36.4-46.3); Red Blood Count 5.89 M/uL (4.7-6.1); White Blood Count 6.76 K/uL (4.8-10.8)
[2021-11-26 22:47] LABS: INR 1.9 (0.9-1.1); Prothrombin Time 18.4 Seconds (9.0-12.0)
[2021-11-26 22:49] LABS: Partial Thromboplastin Time 53.8 Seconds (21.0-31.0)
[2021-11-26] MEDS ORDERED: VANCOMYCIN HCL 2,750 MG in SODIUM CHLORIDE 0.9% 500 ML IV ONE (22:50)
[2021-11-26] MEDS ORDERED: VANCOMYCIN CONSULT ACTIVE PRN (22:50)
[2021-11-26] MEDS ORDERED: cefTRIAXone SODIUM 2,000 MG/70 ML BAG IV STA (22:50)
[2021-11-26 22:59] LABS: Albumin Globulin Ratio 1.2 (0.9-2); Albumin Level 3.7 gm/dl (3.4-5.0); BUN Creatinine Ratio 8.9 (10-20); Bilirubin,Total 1.3 mg/dl (0.2-1.0); Calcium 8.6 mg/dl (8.5-10.1); Creatinine Clr Calc Pharmacy 115.6 ml/min; Est GFR (African American) 59.7 ml/min; Est GFR (Non-African American) 51.5 ml/min; Globulin 3.2 gm/dl (2.5-4.0); Magnesium 1.6 mg/dl (1.7-2.4); Potassium 3.9 mmol/L (3.5-5.1); Total Protein 6.9 gm/dl (6.0-8.3)
[2021-11-26] MEDS ORDERED: AZTREONAM 2,000 MG in DEXTROSE 5% 100 ML IV STA (23:09)
[2021-11-26 23:18] LABS: iSTAT Arterial Blood Gas HCO3 24 meg/L (19-24); iSTAT Arterial Blood Gas pCO2 37 mmHg (35-46); iSTAT Arterial Blood Gas pH 7.43 (7.35-7.45); iSTAT Arterial Blood Gas pO2 46 mmHg (80-95); iSTAT Carbon Dioxide 25 mmol/L (24-31); iSTAT Hematocrit 48 % (42-52); iSTAT Hemoglobin 16.3 g/dl (14.0-18.0); iSTAT Potassium 3.8 mmol/L (3.3-5.0); iSTAT Sodium 133 mmol/L (135-144)
[2021-11-26] MEDS: MAGNESIUM SULFATE / D5W 1 GM/100 ML BAG IV SCH (23:22)
[2021-11-26 23:31] LABS: Adenovirus PCR Not Detected (NotDetected); Bordetella parapertussis PCR Not Detected (NotDetected); Bordetella pertussis PCR Not Detected (NotDetected); Chlamydia pneumoniae PCR Not Detected (NotDetected); Coronavirus 229E PCR Not Detected (NotDetected); Coronavirus CoV-2 (COVID19)PCR Not Detected (NotDetected); Coronavirus HKU1 PCR Not Detected (NotDetected); Coronavirus NL63 PCR Not Detected (NotDetected); Coronavirus OC43PCR Not Detected (NotDetected); Influenza A PCR Not Detected (NotDetected); Influenza B PCR Not Detected (NotDetected); Mycoplasma pneumoniae PCR Not Detected (NotDetected); Parainfluenza Virus 1 PCR Not Detected (NotDetected); Parainfluenza Virus 2 PCR Not Detected (NotDetected); Parainfluenza Virus 3 PCR Not Detected (NotDetected); Parainfluenza Virus 4 PCR Not Detected (NotDetected); Respiratory Syncytial VirusPCR Not Detected (NotDetected); Rhinovirus/Enterovirus PCR Not Detected (NotDetected)
[2021-11-26 23:41] LABS: Human Metapneumovirus PCR DETECTED (NotDetected)
--- NOTE | 2021-11-26 23:59 | History & Physical Report ---
Date of Service November 26, 2021 Assessment & Plan (1) Human metapneumovirus (hMPV) pneumonia: Plan: Human Metapneumonia virus/secondary bacterial pneumonia with hypoxia- Given Solu-Medrol 125 mg IV in ED, vancomycin IV and aztreonam IV Solu-Medrol 40 mg IV every 8 hours Vancomycin IV per pharmacokinetic monitoring Aztreonam 2 g IV every 8 hours Duonebs every 4 hours while awake and every 2 hours when necessary. Guaifenesin extended release 12 mg p.o. twice daily (2) Secondary bacterial pneumonia: Plan: See above (3) Pneumonia involving right lung: Plan: See above (4) Elevated troponin: Plan: Elevated troponin/atrial fibrillation/cardiomyopathy/V. tach history/AICD- Elevated troponin likely type II, supply demand mismatch The patient will be admitted to telemetry for serial cardiac enzymes, serial EKG's, cardiac rhythm monitoring Continue carvedilol 37.5 mg p.o. twice daily, dofetilide 500 mcg p.o. every 12 hours and warfarin Hold lisinopril (5) A-fib: Plan: See above (6) On Coumadin for atrial fibrillation: Plan: See above (7) Cardiomyopathy: Plan: See above (8) AICD (automatic cardioverter/defibrillator) present: Plan: See above (9) V-tach: Plan: See above Keep potassium greater than equal to 4 and magnesium greater than or equal to 2 (10) Schizophrenia: Plan: Continue aripiprazole and sertraline (11) Hypoxia: Plan: See above (12) Hypomagnesemia: Plan: 2 g IV magnesium replacement for magnesium of 1.6 (13) Hypothyroidism: Plan: Continue levothyroxine 50 mcg daily History of Present Illness Chief Complaint: The patient presents to the emergency department with complaint of chest pain, shortness of breath, dyspnea on exertion, fever and blood-tinged sputum over the past 2 days [facility] The patient is a 36-year-old male resident of [facility], with a past medical history including AICD, superobesity, atrial fibrillation, hypothyroidism, sc hizophrenia, hypertension, asthma, cardiomyopathy, V. tach and ventral hernia. He presents with symptoms as noted above. He has been vaccinated for COVID-19 Pulse ox in the ED noted to be in the mid 80s, improved to 93% on 2 L nasal cannula Viral study negative for COVID-19. Human metapneumovirus + Chest x-ray with right middle and right lower lobe infiltrates. Troponin 0.54, INR 1.9, magnesium 1.6, creatinine 1.68 and total bilirubin 1.3 Allergies Allergy/AdvReac Type Severity Reaction Status Date / Time penicillin G Allergy Mild Unknown Unverified 11/26/21 22:28 Home Medications Medication Instructions Recorded Confirmed Type aripiprazole 5 mg tablet (Abilify) 5 mg PO DAILY 11/26/21 11/26/21 History carvedilol 12.5 mg tablet 12.5 mg PO BID 11/26/21 11/26/21 History carvedilol 25 mg tablet 25 mg PO BID 11/26/21 11/26/21 History dofetilide 500 mcg capsule 500 mcg PO Q12H 11/26/21 11/26/21 History fluticasone 250 mcg-salmeterol 50 1 inh INHALATION BID 11/26/21 11/26/21 History mcg/dose blistr powdr for inhalation (Advair Diskus) levothyroxine 50 mcg tablet 50 mcg PO DAILY 11/26/21 11/26/21 History lisinopril 40 mg tablet 40 mg PO DAILY 11/26/21 11/26/21 History pantoprazole 40 mg tablet,delayed 40 mg PO DAILY 11/26/21 11/26/21 History release sertraline 100 mg tablet 100 mg PO DAILY 11/26/21 11/26/21 History warfarin 10 mg tablet 10 mg PO HS 11/26/21 11/26/21 History Past Med/Surg History Medical History A-fib Asthma Cardiac defibrillator in place Cardiomyopathy Hernia HTN (hypertension) ICD (implantable cardioverter-defibrillator) in place [employer] subcutaneous ICD model A209, implanted 05/07/2016 On Coumadin for atrial fibrillation Schizophrenia Super obesity Syncope Ventral hernia without obstruction or gangrene Surgical History History of cardiac defibrillator placement Social History Smoking Status: Former smoker Hx Alcohol Use: No Hx Substance Use: No Preferred Language: [place]ian Communication Ability: Effective Perinatal Coordinator Required: No Beliefs That Will Affect Care: None Current Living Situation: Other Current Living Situation Comment: [facility] Feels Safe at Home: Yes Assistive Devices: None Review of Systems Review of Systems: The patient denies chest pain, palpitations, cough, lower extremity swelling, sore throat, fevers, chills, sweats, nausea, vomiting, diarrhea, constipation, abdominal pain, pelvic pain, blood in urine or stool, dysuria, urinary frequency or urgency, lightheadedness, dizziness, memory loss, loss of consciousness, rash, abnormal bruising or bleeding, imbalance, focal or generalized weakness, numbness or tingling in arms or legs, generalized arthralgias or myalgias, back or neck pain, or night sweats. The review of systems is otherwise negative other than for that already noted above, and at least 10 systems have been reviewed. Physical Exam Physical Exam: The patient is awake, alert and oriented 3, well developed and well nourished, normocephalic and atraumatic, lying in bed and in no acute distress. HEENT--PERRL, EOMI, mucous membranes and oropharynx Normal. Neck--supple. No JVD. No bruits. Thyroid normal, trachea midline, no adenopathy. Heart--normal S1 and S2. No murmurs, rubs or gallops. Lungs--decreased breath sounds right mid and lower lung. no respiratory distress, no accessory muscle use. Abdomen--normal bowel sounds and soft. Nontender. Nondistended, no hernias or masses, no organomegaly. Extremities--no cyanosis or clubbing. No edema. Dermatologic--normal skin turgor, normal color, no abnormal lymph nodes, no rash. Neurologic--cranial nerves II through XII grossly intact. Rheumatologic--normal range of motion. Psychiatric--normal affect. Results & Data Results & Data ([facility]) Vital Signs (Past 12 Hours) Vital Signs Temp Pulse Pulse Resp BP BP Pulse Ox 11/26/21 23:37 104 H 24 93 11/26/21 23:00 104 H 22 93 11/26/21 22:30 38.8 C H 103 H 25 H 125/51 L 93 11/26/21 22:24 28 H 95 11/26/21 21:39 39.2 C H 103 H 33 H 112/69 95 Laboratory Results Laboratory Results WBC 6.76 K/uL (4.8-10.8) 11/26/21 22:06 RBC 5.89 M/uL (4.7-6.1) 11/26/21 22:06 Hgb 15.6 g/dL (14.0-18.0) 11/26/21 22:06 POC Hgb 16.3 g/dl (14.0-18.0) 11/26/21 23:06 Hct 48.7 % (42-52) 11/26/21 22:06 POC Hct 48 % (42-52) 11/26/21 23:06 MCV 82.7 fL (80-100) 11/26/21 22:06 MCH 26.5 pg (25-34) 11/26/21 22:06 MCHC 32.0 g/dL (32-36) 11/26/21 22:06 RDW Std Deviation 48.8 fL (36.4-46.3) H 11/26/21 22:06 RDW Coeff of Rosangela 16.1 % (11.5-14.5) H 11/26/21 22:06 Plt Count 278 K/uL (130-400) 11/26/21 22:06 MPV 10.0 fL (7.4-10.4) 11/26/21 22:06 Immature Gran % (Auto) 0.1 % 11/26/21 22:06 Neut % (Auto) 69.0 % 11/26/21 22:06 Lymph % (Auto) 17.2 % 11/26/21 22:06 Lyon % (Auto) 13.6 % 11/26/21 22:06 Eos % (Auto) 0.0 % 11/26/21 22:06 Baso % (Auto) 0.1 % 11/26/21 22:06 Neut # (Auto) 4.66 K/uL (1.4-6.5) 11/26/21 22:06 Lymph # (Auto) 1.16 K/uL (1.2-3.4) L 11/26/21 22:06 Lyon # (Auto) 0.92 K/uL (0.11-0.59) H 11/26/21 22:06 Eos # (Auto) 0.00 K/uL (0-0.5) 11/26/21 22:06 Baso # (Auto) 0.01 K/uL (0-0.2) 11/26/21 22:06 Immature Gran # (Auto) 0.01 K/uL (0.00-0.02) 11/26/21 22:06 PT 18.4 Seconds (9.0-12.0) H 11/26/21 22:06 INR 1.9 (0.9-1.1) H 11/26/21 22:06 APTT 53.8 Seconds (21.0-31.0) H* 11/26/21 22:06 PTT Ratio 2.0 11/26/21 22:06 POC pH 7.43 (7.35-7.45) 11/26/21 23:06 POC pCO2 37 mmHg (35-46) 11/26/21 23:06 POC pO2 46 mmHg (80-95) L 11/26/21 23:06 POC HCO3 24 lino/L (19-24) 11/26/21 23:06 POC Total CO2 25 mmol/L (24-31) 11/26/21 23:06 POC Base Excess 0.0 lino/L (-9-1.8) 11/26/21 23:06 POC ABG O2 Sat 83.0 % (90-95) L 11/26/21 23:06 POC Sodium 133 mmol/L (135-144) L 11/26/21 23:06 Sodium 131 mmol/L (136-145) L 11/26/21 22:06 POC Potassium 3.8 mmol/L (3.3-5.0) 11/26/21 23:06 Potassium 3.9 mmol/L (3.5-5.1) 11/26/21 22:06 Chloride 98 mmol/L (98-107) 11/26/21 22:06 Carbon Dioxide 26 mmol/L (21-32) 11/26/21 22:06 Anion Gap 7 (3-11) 11/26/21 22:06 BUN 15 mg/dl (6-23) 11/26/21 22:06 Creatinine 1.68 mg/dl (0.6-1.4) H 11/26/21 22:06 Est Cr Clr Drug Dosing 115.6 ml/min 11/26/21 22:06 Est GFR ( Amer) 59.7 ml/min 11/26/21 22:06 Est GFR (Non-Af Amer) 51.5 ml/min 11/26/21 22:06 BUN/Creatinine Ratio 8.9 (10-20) L 11/26/21 22:06 Glucose 108 mg/dl (70-99(Fasting)) H 11/26/21 22:06 Lactate 0.7 mmol/L (0.4-2.0) 11/26/21 22:06 Calcium 8.6 mg/dl (8.5-10.1) 11/26/21 22:06 Magnesium 1.6 mg/dl (1.7-2.4) L 11/26/21 22:06 Total Bilirubin 1.3 mg/dl (0.2-1.0) H 11/26/21 22:06 AST 17 U/L (13-39) 11/26/21 22:06 ALT 9 U/L (7-52) 11/26/21 22:06 Alkaline Phosphatase 96 U/L (34-104) 11/26/21 22:06 Troponin I 0.54 ng/ml (0-0.04) H* 11/26/21 22:06 B-Natriuretic Peptide 139 pg/ml (0-100) H 11/26/21 22:06 Total Protein 6.9 gm/dl (6.0-8.3) 11/26/21 22:06 Albumin 3.7 gm/dl (3.4-5.0) 11/26/21 22:06 Globulin 3.2 gm/dl (2.5-4.0) 11/26/21 22:06 Albumin/Globulin Ratio 1.2 (0.9-2) 11/26/21 22:06 Procalcitonin 0.17 ng/ml (0-0.5) 11/26/21 22:06 Adenovirus (PCR) Not Detected (NotDetected) 11/26/21 22:20 B. pertussis DNA (PCR) Not Detected (NotDetected) 11/26/21 22:20 B.parapertussis DNA PCR Not Detected (NotDetected) 11/26/21 22:20 C. pneumoniae DNA (PCR) Not Detected (NotDetected) 11/26/21 22:20 Coronavirus OC43 (PCR) Not Detected (NotDetected) 11/26/21 22:20 Coronavirus HKU1 (PCR) Not Detected (NotDetected) 11/26/21 22:20 Coronavirus 229E (PCR) Not Detected (NotDetected) 11/26/21 22:20 SARS-CoV-2 (PCR) Not Detected (NotDetected) 11/26/21 22:20 Coronavirus NL63 (PCR) Not Detected (NotDetected) 11/26/21 22:20 Human Metapneumovir PCR DETECTED (NotDetected) A* 11/26/21 22:20 Influenza Type A (PCR) Not Detected (NotDetected) 11/26/21 22:20 Influenza Type B (PCR) Not Detected (NotDetected) 11/26/21 22:20 M. pneumoniae (PCR) Not Detected (NotDetected) 11/26/21 22:20 Parainfluenza 1 (PCR) Not Detected (NotDetected) 11/26/21 22:20 Parainfluenza 2 (PCR) Not Detected (NotDetected) 11/26/21 22:20 Parainfluenza 3 (PCR) Not Detected (NotDetected) 11/26/21 22:20 Parainfluenza 4 (PCR) Not Detected (NotDetected) 11/26/21 22:20 RSV (PCR) Not Detected (NotDetected) 11/26/21 22:20 Entero/Rhino (PCR) Not Detected (NotDetected) 11/26/21 22:20 Code Status & VTE Plan Code Status Full code VTE Prophylaxis Plan VTE Prophylaxis will be ordered: Yes PG Care Time/CCT Total # of Minutes Spent Total Time Spent with Patient: Total time spent is greater than 50% in coordination of care (as documented) at patient's floor/unit and/or counseling patient: Coding Level of Care Code 38359 Initial Inpt Care Lvl 3 Diagnoses Human metapneumovirus (hMPV) pneumonia J12.3 Secondary bacterial pneumonia J15.9 Pneumonia involving right lung J18.9 Lung location: unspecified part of lung Pneumonia type: due to unspecified organism Elevated troponin R77.8 Hypomagnesemia E83.42 A-fib I48.91 On Coumadin for atrial fibrillation I48.91; Z79.01 Hypothyroidism E03.9 Cardiomyopathy I42.9 AICD (automatic cardioverter/defibrillator) present Z95.810 V-tach I47.2 Schizophrenia F20.9 Hypoxia R09.02 (1) Pneumonia involving right lung Lung location: unspecified part of lung Pneumonia type: due to unspecified organism Qualified Code(s): J18.9 - Pneumonia, unspecified organism
--- NOTE | 2021-11-27 00:03 | Emergency Department Note ---
History of Present Illness General Chief complaint: Shortness of Breath/Dyspnea Stated complaint: SHORTNESS OF BREATH Time Seen by Provider: 11/26/21 21:45 History of Present Illness Maximum Pain Intensity: 4 This 36-year-old prisoner presents to the ER complaining of fever, hemoptysis, chest pain, dyspnea and generalized illness for the past 2 days who is vaccinated for COVID Location: Generalized Quality: Hard to breathe Severity: Moderate Duration: Past few days Timing: Started a few days ago Context: Patient was concerned and came in Modifying factors: better with rest; worse with activity Patient states he feels horrible. He states he has been compliant with his m edications. Patient saw his hot box operator last month. He states his weight is about normal for him. Patient denies abdominal pain, vomiting, diarrhea, neck stiffness. Home Medications Medication Instructions Recorded Confirmed Type aripiprazole 5 mg tablet (Abilify) 5 mg PO DAILY 11/26/21 11/26/21 History carvedilol 12.5 mg tablet 12.5 mg PO BID 11/26/21 11/26/21 History carvedilol 25 mg tablet 25 mg PO BID 11/26/21 11/26/21 History dofetilide 500 mcg capsule 500 mcg PO Q12H 11/26/21 11/26/21 History fluticasone 250 mcg-salmeterol 50 1 inh INHALATION BID 11/26/21 11/26/21 History mcg/dose blistr powdr for inhalation (Advair Diskus) levothyroxine 50 mcg tablet 50 mcg PO DAILY 11/26/21 11/26/21 History lisinopril 40 mg tablet 40 mg PO DAILY 11/26/21 11/26/21 History pantoprazole 40 mg tablet,delayed 40 mg PO DAILY 11/26/21 11/26/21 History release sertraline 100 mg tablet 100 mg PO DAILY 11/26/21 11/26/21 History warfarin 10 mg tablet 10 mg PO HS 11/26/21 11/26/21 History Allergies Allergy/AdvReac Type Severity Reaction Status Date / Time penicillin G Allergy Mild Unknown Unverified 11/26/21 22:28 Past Med/Surg History Medical History A-fib Asthma Cardiac defibrillator in place Cardiomyopathy Hernia HTN (hypertension) ICD (implantable cardioverter-defibrillator) in place [employer] subcutaneous ICD model A209, implanted 05/07/2016 On Coumadin for atrial fibrillation Schizophrenia Super obesity Syncope Ventral hernia without obstruction or gangrene Surgical History History of cardiac defibrillator placement Social History Smoking Status: Former smoker Hx Alcohol Use: No Hx Substance Use: No Preferred Language: [place] Island[place] Communication Ability: Effective Pig Caster Required: No Beliefs That Will Affect Care: None Current Living Situation: Other Current Living Situation Comment: Correction Feels Safe at Home: Yes Assistive Devices: None Review of Systems A total of 10 systems reviewed and were otherwise negative Physical Exam Vital Signs Vital Signs - 24 hr 11/26/21 21:39 11/26/21 22:24 11/26/21 22:30 Temperature 39.2 C H 38.8 C H Temperature Source Oral Oral Pulse Rate 103 H Pulse Rate [Right Finger] 103 H Pulse Rhythm Irregular Pulse Rhythm [Right Finger] Irregular Pulse Strength Normal Pulse Strength [Right Finger] Normal Respiratory Rate 33 H 28 H 25 H Respiratory Effort / Characteristics Accessory Muscle Use Spontaneous Non-Labored Respiratory Depth Deep Respiratory Pattern Rapid/Shallow Blood Pressure 112/69 Blood Pressure [Left Arm] 125/51 L Blood Pressure Mean 83 Blood Pressure Mean [Left Arm] 75 Blood Pressure Position Lying Pulse Oximetry 95 95 93 Oxygen Delivery Method Oxymask Room Air Room Air Oxygen Flow Rate 5 Sepsis Recent Fever Within 48 Hours No Sepsis New/Unexplained Change in Mental Status No Sepsis Action Taken by Nursing Previously Notified 11/26/21 22:37 11/26/21 23:00 11/26/21 23:37 Temperature Temperature Source Pulse Rate 104 H Pulse Rate [Right Finger] 104 H Pulse Rhythm Regular Pulse Rhythm [Right Finger] Irregular Pulse Strength Pulse Strength [Right Finger] Normal Respiratory Rate 22 24 Respiratory Effort / Characteristics Spontaneous Non-Labored Spontaneous Respiratory Depth Normal Normal Respiratory Pattern Regular Blood Pressure Blood Pressure [Left Arm] Blood Pressure Mean Blood Pressure Mean [Left Arm] Blood Pressure Position Pulse Oximetry 93 93 Oxygen Delivery Method Room Air Room Air Room Air Oxygen Flow Rate Sepsis Recent Fever Within 48 Hours Sepsis New/Unexplained Change in Mental Status Sepsis Action Taken by Nursing VITALS: Vitals are noted on the nurse's note and reviewed by myself. Vital signs hypoxic on room air febrile and tachycardic. GENERAL: Black male with an elevated BMI working to breathe with audible wheeze in moderate acute distress, SKIN: The skin was without rashes, erythema, edema, or bruising. There is no tenting of the skin. Capillary reflex less than 2 seconds. HEAD: Normocephalic atraumatic. EARS: External auditory canals clear EYES: Pupils equal round and reactive to light and accommodation. Conjunctivae without injection, sclerae without icterus. Extraocular movements intact. NOSE: Patent, turbinates without inflammation or discharge. MOUTH: Mucous membranes moist. Pharynx without erythema or exudate. Uvula midline. Airway patent. Tongue does not deviate. NECK: Supple without nuchal rigidity. No lymphadenopathy. No thyromegaly. Cervical spine is nontender. No JVD. HEART: Regular rate and rhythm LUNGS: Diffuse inspiratory and end expiratory wheezes, bibasilar rales, + retractions + accessory muscle use. ABDOMEN: Positive bowel sounds x 4. Normal tympanic percussion. Soft, nontender, without masses or organomegaly. Wetzel sign negative. No guarding or rebound tenderness. No CVA tenderness MUSCULOSKELETAL: No muscle atrophy, erythema, noted. NEURO: Patient was alert and oriented to person place and time. Normal sensation to light and sharp touch. No focal neurological deficits. Course Administered Medications Magnesium Sulfate/Dextrose (Magnesium Sulfate / D5w) 1 gm in 100 mls @ 100 mls/hr IV Q1H [facility] Stop: 11/27/21 01:10 Last Admin: 11/26/21 23:22 Dose: 100 mls/hr Documented by: [id number] Discontinued Medications Acetaminophen (Acetaminophen 500 Mg Tab) 1,000 mg PO NOW STA Stop: 11/26/21 21:57 Last Admin: 11/26/21 22:07 Dose: 1,000 mg Documented by: [id number] Albuterol (Albut/Ipratrop 3mg/0.5mg Neb 3 Ml Vial) 3 ml NEB NOW STA; Protocol Stop: 11/26/21 21:57 Last Admin: 11/26/21 22:07 Dose: 3 ml Documented by: [id number] Ceftriaxone Sodium (Rocephin) 2,000 mg in 70 mls @ 140 mls/hr IV NOW STA Stop: 11/26/21 23:19 Last Infusion: 11/26/21 23:14 Dose: 120 mls/hr Documented by: [id number] Admin: 11/26/21 23:02 Dose: 140 mls/hr Documented by: [id number] Medical Decision Making Medical Records Attestation: I reviewed the patient's medical records. Home Medications Current Medication List: was personally reviewed by ma Laboratory Data Attestation: I reviewed the patient's lab results. Result diagrams: 11/26/21 22:06 11/26/21 22:06 Lab Results 11/26/21 11/26/21 11/26/21 Range/Units 22:06 22:06 22:06 WBC 6.76 (4.8-10.8) K/uL RBC 5.89 (4.7-6.1) M/uL Hgb 15.6 (14.0-18.0) g/dL POC Hgb (14.0-18.0) g/dl Hct 48.7 (42-52) % POC Hct (42-52) % MCV 82.7 (80-100) fL MCH 26.5 (25-34) pg MCHC 32.0 (32-36) g/dL RDW Std Deviation 48.8 H (36.4-46.3) fL RDW Coeff of Rosangela 16.1 H (11.5-14.5) % Plt Count 278 (130-400) K/uL MPV 10.0 (7.4-10.4) fL Immature Gran % (Auto) 0.1 % Neut % (Auto) 69.0 % Lymph % (Auto) 17.2 % Childress % (Auto) 13.6 % Eos % (Auto) 0.0 % Baso % (Auto) 0.1 % Neut # (Auto) 4.66 (1.4-6.5) K/uL Lymph # (Auto) 1.16 L (1.2-3.4) K/uL Childress # (Auto) 0.92 H (0.11-0.59) K/uL Eos # (Auto) 0.00 (0-0.5) K/uL Baso # (Auto) 0.01 (0-0.2) K/uL Immature Gran # (Auto) 0.01 (0.00-0.02) K/uL PT 18.4 H (9.0-12.0) Seconds INR 1.9 H (0.9-1.1) APTT 53.8 H* (21.0-31.0) Seconds PTT Ratio 2.0 POC pH (7.35-7.45) POC pCO2 (35-46) mmHg POC pO2 (80-95) mmHg POC HCO3 (19-24) lino/L POC Total CO2 (24-31) mmol/L POC Base Excess (-9-1.8) lino/L POC ABG O2 Sat (90-95) % POC Sodium (135-144) mmol/L Sodium 131 L (136-145) mmol/L POC Potassium (3.3-5.0) mmol/L Potassium 3.9 (3.5-5.1) mmol/L Chloride 98 (98-107) mmol/L Carbon Dioxide 26 (21-32) mmol/L Anion Gap 7 (3-11) BUN 15 (6-23) mg/dl Creatinine 1.68 H (0.6-1.4) mg/dl Est Cr Clr Drug Dosing 115.6 ml/min Est GFR ( Amer) 59.7 ml/min Est GFR (Non-Af Amer) 51.5 ml/min BUN/Creatinine Ratio 8.9 L (10-20) Glucose 108 H (70-99(Fasting)) mg/dl Lactate (0.4-2.0) mmol/L Calcium 8.6 (8.5-10.1) mg/dl Magnesium 1.6 L (1.7-2.4) mg/dl Total Bilirubin 1.3 H (0.2-1.0) mg/dl AST 17 (13-39) U/L ALT 9 (7-52) U/L Alkaline Phosphatase 96 (34-104) U/L Troponin I 0.54 H* (0-0.04) ng/ml B-Natriuretic Peptide (0-100) pg/ml Total Protein 6.9 (6.0-8.3) gm/dl Albumin 3.7 (3.4-5.0) gm/dl Globulin 3.2 (2.5-4.0) gm/dl Albumin/Globulin Ratio 1.2 (0.9-2) Procalcitonin (0-0.5) ng/ml Adenovirus (PCR) (NotDetected) B. pertussis DNA (PCR) (NotDetected) B.parapertussis DNA PCR (NotDetected) C. pneumoniae DNA (PCR) (NotDetected) Coronavirus OC43 (PCR) (NotDetected) Coronavirus HKU1 (PCR) (NotDetected) Coronavirus 229E (PCR) (NotDetected) SARS-CoV-2 (PCR) (NotDetected) Coronavirus NL63 (PCR) (NotDetected) Human Metapneumovir PCR (NotDetected) Influenza Type A (PCR) (NotDetected) Influenza Type B (PCR) (NotDetected) M. pneumoniae (PCR) (NotDetected) Parainfluenza 1 (PCR) (NotDetected) Parainfluenza 2 (PCR) (NotDetected) Parainfluenza 3 (PCR) (NotDetected) Parainfluenza 4 (PCR) (NotDetected) RSV (PCR) (NotDetected) Entero/Rhino (PCR) (NotDetected) 11/26/21 11/26/21 11/26/21 Range/Units 22:06 22:06 22:06 WBC (4.8-10.8) K/uL RBC (4.7-6.1) M/uL Hgb (14.0-18.0) g/dL POC Hgb (14.0-18.0) g/dl Hct (42-52) % POC Hct (42-52) % MCV (80-100) fL MCH (25-34) pg MCHC (32-36) g/dL RDW Std Deviation (36.4-46.3) fL RDW Coeff of Rosangela (11.5-14.5) % Plt Count (130-400) K/uL MPV (7.4-10.4) fL Immature Gran % (Auto) % Neut % (Auto) % Lymph % (Auto) % Childress % (Auto) % Eos % (Auto) % Baso % (Auto) % Neut # (Auto) (1.4-6.5) K/uL Lymph # (Auto) (1.2-3.4) K/uL Childress # (Auto) (0.11-0.59) K/uL Eos # (Auto) (0-0.5) K/uL Baso # (Auto) (0-0.2) K/uL Immature Gran # (Auto) (0.00-0.02) K/uL PT (9.0-12.0) Seconds INR (0.9-1.1) APTT (21.0-31.0) Seconds PTT Ratio POC pH (7.35-7.45) POC pCO2 (35-46) mmHg POC pO2 (80-95) mmHg POC HCO3 (19-24) lino/L POC Total CO2 (24-31) mmol/L POC Base Excess (-9-1.8) lino/L POC ABG O2 Sat (90-95) % POC Sodium (135-144) mmol/L Sodium (136-145) mmol/L POC Potassium (3.3-5.0) mmol/L Potassium (3.5-5.1) mmol/L Chloride (98-107) mmol/L Carbon Dioxide (21-32) mmol/L Anion Gap (3-11) BUN (6-23) mg/dl Creatinine (0.6-1.4) mg/dl Est Cr Clr Drug Dosing ml/min Est GFR ( Amer) ml/min Est GFR (Non-Af Amer) ml/min BUN/Creatinine Ratio (10-20) Glucose (70-99(Fasting)) mg/dl Lactate 0.7 (0.4-2.0) mmol/L Calcium (8.5-10.1) mg/dl Magnesium (1.7-2.4) mg/dl Total Bilirubin (0.2-1.0) mg/dl AST (13-39) U/L ALT (7-52) U/L Alkaline Phosphatase (34-104) U/L Troponin I (0-0.04) ng/ml B-Natriuretic Peptide 139 H (0-100) pg/ml Total Protein (6.0-8.3) gm/dl Albumin (3.4-5.0) gm/dl Globulin (2.5-4.0) gm/dl Albumin/Globulin Ratio (0.9-2) Procalcitonin 0.17 (0-0.5) ng/ml Adenovirus (PCR) (NotDetected) B. pertussis DNA (PCR) (NotDetected) B.parapertussis DNA PCR (NotDetected) C. pneumoniae DNA (PCR) (NotDetected) Coronavirus OC43 (PCR) (NotDetected) Coronavirus HKU1 (PCR) (NotDetected) Coronavirus 229E (PCR) (NotDetected) SARS-CoV-2 (PCR) (NotDetected) Coronavirus NL63 (PCR) (NotDetected) Human Metapneumovir PCR (NotDetected) Influenza Type A (PCR) (NotDetected) Influenza Type B (PCR) (NotDetected) M. pneumoniae (PCR) (NotDetected) Parainfluenza 1 (PCR) (NotDetected) Parainfluenza 2 (PCR) (NotDetected) Parainfluenza 3 (PCR) (NotDetected) Parainfluenza 4 (PCR) (NotDetected) RSV (PCR) (NotDetected) Entero/Rhino (PCR) (NotDetected) 11/26/21 11/26/21 Range/Units 22:20 23:06 WBC (4.8-10.8) K/uL RBC (4.7-6.1) M/uL Hgb (14.0-18.0) g/dL POC Hgb 16.3 (14.0-18.0) g/dl Hct (42-52) % POC Hct 48 (42-52) % MCV (80-100) fL MCH (25-34) pg MCHC (32-36) g/dL RDW Std Deviation (36.4-46.3) fL RDW Coeff of Rosangela (11.5-14.5) % Plt Count (130-400) K/uL MPV (7.4-10.4) fL Immature Gran % (Auto) % Neut % (Auto) % Lymph % (Auto) % Childress % (Auto) % Eos % (Auto) % Baso % (Auto) % Neut # (Auto) (1.4-6.5) K/uL Lymph # (Auto) (1.2-3.4) K/uL Childress # (Auto) (0.11-0.59) K/uL Eos # (Auto) (0-0.5) K/uL Baso # (Auto) (0-0.2) K/uL Immature Gran # (Auto) (0.00-0.02) K/uL PT (9.0-12.0) Seconds INR (0.9-1.1) APTT (21.0-31.0) Seconds PTT Ratio POC pH 7.43 (7.35-7.45) POC pCO2 37 (35-46) mmHg POC pO2 46 L (80-95) mmHg POC HCO3 24 (19-24) lino/L POC Total CO2 25 (24-31) mmol/L POC Base Excess 0.0 (-9-1.8) lino/L POC ABG O2 Sat 83.0 L (90-95) % POC Sodium 133 L (135-144) mmol/L Sodium (136-145) mmol/L POC Potassium 3.8 (3.3-5.0) mmol/L Potassium (3.5-5.1) mmol/L Chloride (98-107) mmol/L Carbon Dioxide (21-32) mmol/L Anion Gap (3-11) BUN (6-23) mg/dl Creatinine (0.6-1.4) mg/dl Est Cr Clr Drug Dosing ml/min Est GFR ( Amer) ml/min Est GFR (Non-Af Amer) ml/min BUN/Creatinine Ratio (10-20) Glucose (70-99(Fasting)) mg/dl Lactate (0.4-2.0) mmol/L Calcium (8.5-10.1) mg/dl Magnesium (1.7-2.4) mg/dl Total Bilirubin (0.2-1.0) mg/dl AST (13-39) U/L ALT (7-52) U/L Alkaline Phosphatase (34-104) U/L Troponin I (0-0.04) ng/ml B-Natriuretic Peptide (0-100) pg/ml Total Protein (6.0-8.3) gm/dl Albumin (3.4-5.0) gm/dl Globulin (2.5-4.0) gm/dl Albumin/Globulin Ratio (0.9-2) Procalcitonin (0-0.5) ng/ml Adenovirus (PCR) Not Detected (NotDetected) B. pertussis DNA (PCR) Not Detected (NotDetected) B.parapertussis DNA PCR Not Detected (NotDetected) C. pneumoniae DNA (PCR) Not Detected (NotDetected) Coronavirus OC43 (PCR) Not Detected (NotDetected) Coronavirus HKU1 (PCR) Not Detected (NotDetected) Coronavirus 229E (PCR) Not Detected (NotDetected) SARS-CoV-2 (PCR) Not Detected (NotDetected) Coronavirus NL63 (PCR) Not Detected (NotDetected) Human Metapneumovir PCR DETECTED A* (NotDetected) Influenza Type A (PCR) Not Detected (NotDetected) Influenza Type B (PCR) Not Detected (NotDetected) M. pneumoniae (PCR) Not Detected (NotDetected) Parainfluenza 1 (PCR) Not Detected (NotDetected) Parainfluenza 2 (PCR) Not Detected (NotDetected) Parainfluenza 3 (PCR) Not Detected (NotDetected) Parainfluenza 4 (PCR) Not Detected (NotDetected) RSV (PCR) Not Detected (NotDetected) Entero/Rhino (PCR) Not Detected (NotDetected) Imaging Data Attestation: I personally reviewed and interpreted this imaging study as follows: MDM Narrative Prior records/ancillary studies reviewed. Triage Nursing notes reviewed. Additional history obtained from correctional officers. The patient's history was concerning for fever, dyspnea, hemoptysis. Differential diagnosis: Etiologies such as sepsis, UTI, pneumonia, metabolic, electrolyte abnormalities, cardiac sources, intracerebral event, toxicologic, neurologic, as well as others were entertained. Physical examination: As above. Pertinent findings were low O2 sats, febrile and tachycardic. Vital signs reviewed and revealed tachycardia and febrile. ER treatment provided: Nebulizer Blood and urine cultures Antibiotics: aztreonam, vancomycin Magnesium An order was placed for continuous cardiac monitoring. The monitor shows a rate of 60-1 50 with a sinus rhythm. On reassessment the patient vital signs improved. Diagnostics interpretation by me: ECG: Ordered for chest pain EKG: Normal sinus, right axis, no acute ST-T wave changes, rate of 112. Impression sinus tachycardia with right axis deviation interpreted by myself I think arrhythmia is unlikely. EKG shows normal sinus rhythm with no interval abnormalities such as QT prolongation or WPW. There are no findings to suggest Brugada syndrome. Cardiac monitoring in the emergency department reveals no tachycardic or bradycardic dysrhythmia. Hypertrophic cardiomyopathy was considered but there are no clear historical elements pointing toward this. EKG is not suggestive. The QRS voltage is not extremely large and there are no suggestive Q waves. The labs revealed no worrisome leukocytosis on CBC. Chemistry panel revealed hypomagnesemia LFTs revealed. Cardiac enzymes were elevated. Serum Lactate measurement was reviewed. Blood and urine cultures are pending. Bio fire positive for human pneumo. Imaging studies: Chest xray revealed multifocal pneumonia with heart failure per my interpretation, no free air CURB Score: Confusion: 0 Urea (BUN > 19): 0 Respiratory Rate (>30/min): 1 Blood Pressure: Diastolic <60 or Systolic <90 0 Age (>= 65) 0 Total (0-1 low risk, 2-5 high risk): 2 Consultation: A consultation was placed with the hospitalist. The case was discussed and diagnostics were reviewed. The patient was evaluated in the ER for further treatment. Patient has pneumonia with sepsis with positive troponin He was hypoxic. He improved with nebulizer. He was given antibiotics as above. Medicine was consulted. He will be admitted. The chart was completed utilizing [employer] Speech voice recognition software. Grammatical errors, random word insertions, pronoun errors, and incomplete sentences are an occassional consequence of this system due to software limitations, ambient noise, and hardware issues. Any formal questions or c oncerns about the content, text, or information contained within the body of this dictation should be directly addressed to the physician fleet assistant for clarification. Impression & Plan Pneumonia involving right lung, Congestive heart failure, Elevated troponin, Hypomagnesemia Discharge Plan Visit Data Chief Complaint: Shortness of Breath/Dyspnea Stated Complaint: SHORTNESS OF BREATH ED Midlevel Provider: Olivia Elizondo Discharge Problem: Pneumonia involving right lung, Congestive heart failure, Elevated troponin, Hypomagnesemia Patient Disposition: Admitted As Inpatient Condition: Fair Forms Stand Alone Forms: My [facility] QPSoftware Prescriptions Prescriptions: No Action fluticasone propion-salmeterol [Advair Diskus] 250-50 mcg/dose Blister With Device 1 inh INHALATION BID RF: 0 carvedilol 25 mg Tablet 25 mg PO BID RF: 0 carvedilol 12.5 mg Tablet 12.5 mg PO BID RF: 0 warfarin 10 mg Tablet 10 mg PO HS RF: 0 sertraline 100 mg Tablet 100 mg PO DAILY RF: 0 levothyroxine 50 mcg Tablet 50 mcg PO DAILY RF: 0 pantoprazole 40 mg Tablet,Delayed Release (Dr/Ec) 40 mg PO DAILY RF: 0 lisinopril 40 mg Tablet 40 mg PO DAILY RF: 0 dofetilide 500 mcg Capsule 500 mcg PO Q12H RF: 0 aripiprazole [Abilify] 5 mg Tablet 5 mg PO DAILY RF: 0 Referrals Referrals: Zackary HAN [Primary Care Provider] -
[2021-11-27] MEDS ORDERED: methylPREDNISolone 125 MG/2 ML VIAL IV STA (00:11)
[2021-11-27] MEDS ORDERED: VANCOMYCIN CONSULT ACTIVE PRN (00:11)
[2021-11-27] MEDS ORDERED: VANCOMYCIN HCL 2,000 MG in SODIUM CHLORIDE 0.9% 500 ML IV SCH (00:15)
[2021-11-27] MEDS: MAGNESIUM SULFATE / D5W 1 GM/100 ML BAG IV SCH (00:50)
[2021-11-27] MEDS ORDERED: ACETAMINOPHEN 325 MG TAB PO PRN (01:41)
[2021-11-27] MEDS ORDERED: ONDANSETRON INJ 2 MG/ML 2 ML VIAL IV PRN (01:41)
[2021-11-27] MEDS ORDERED: MAGNESIUM SULFATE / D5W 1 GM/100 ML BAG IV ONE (02:15)
[2021-11-27] MEDS: DOFETILIDE 125 MCG CAPSULE PO SCH ×3 (02:34→20:48)
[2021-11-27] MEDS: carvediloL 25 MG TAB PO SCH ×3 (02:35→20:48)
[2021-11-27] MEDS: carvediloL 12.5 MG TAB PO SCH ×3 (02:35→20:48)
[2021-11-27] MEDS: LEVOTHYROXINE SODIUM 50 MCG TABLET PO SCH (06:02)
[2021-11-27] MEDS ORDERED: LINEZOLID CONSULT ACTIVE PRN (06:42)
[2021-11-27] MEDS ORDERED: LINEZOLID 600 MG/300 ML D5W IV SCH (06:45)
--- NOTE | 2021-11-27 06:56 | XRay Report ---
XR chest 1V portable CLINICAL HISTORY: SEPSIS. Evaluate cardiopulmonary status COMPARISON STUDY: 09/03/2019 TECHNIQUE: 1 view of the chest FINDINGS: Single frontal view of the chest demonstrates the heart to again be enlarged. Compared to the previou s examination, there is a confluent alveolar opacity seen involving the right lower lobe characterist ic of pneumonia. The remainder of the lungs are clear. There is no evidence for pleural effusion. The re is no evidence for vascular congestion. There is no acute osseous pathology. IMPRESSION: 1. Evidence for right lower lobe pneumonia. ACT 112: Negative or not required by law. Electronically signed by: Yosef Ceja M.D. 11/27/2021 6:55 AM
[2021-11-27 07:08] LABS: Basophils # (auto) 0.01 K/uL (0-0.2); Basophils % (auto) 0.2 %; Hematocrit (blood only) 45.7 % (42-52); Hemoglobin 14.8 g/dL (14.0-18.0); Immature Granulocytes # (auto) 0.01 K/uL (0.00-0.02); Immature Granulocytes % (auto) 0.2 %; Lymphocytes # (auto) 0.71 K/uL (1.2-3.4); Lymphocytes % (auto) 11.1 %; Mean Corpuscular Hemoglobin 26.8 pg (25-34); Mean Corpuscular Hgb Conc 32.4 g/dL (32-36); Mean Corpuscular Volume 82.6 fL (80-100); Mean Platelet Volume 9.7 fL (7.4-10.4); Monocytes # (auto) 0.29 K/uL (0.11-0.59); Monocytes % (auto) 4.5 %; Neutrophils # (auto) 5.38 K/uL (1.4-6.5); Platelet Count 269 K/uL (130-400); RDW Coefficient of Variation 16.3 % (11.5-14.5); RDW Standard Deviation 49.4 fL (36.4-46.3); Red Blood Count 5.53 M/uL (4.7-6.1)
[2021-11-27 07:44] LABS: Troponin I 0.3 ng/ml (0-0.04)
[2021-11-27 07:48] LABS: Albumin Globulin Ratio 1.1 (0.9-2); Albumin Level 3.6 gm/dl (3.4-5.0); BUN Creatinine Ratio 10.9 (10-20); Bilirubin,Total 1.2 mg/dl (0.2-1.0); Calcium 8.5 mg/dl (8.5-10.1); Creatinine Clr Calc Pharmacy 110.6 ml/min; Est GFR (African American) 57.2 ml/min; Est GFR (Non-African American) 49.3 ml/min; Globulin 3.2 gm/dl (2.5-4.0); Magnesium 2.3 mg/dl (1.7-2.4); Potassium 4.1 mmol/L (3.5-5.1); Total Protein 6.8 gm/dl (6.0-8.3)
[2021-11-27] MEDS ORDERED: AZTREONAM 2,000 MG in DEXTROSE 5% 100 ML IV SCH (08:00)
[2021-11-27] MEDS ORDERED: LINEZOLID 600 MG/300 ML BAG IV SCH (08:00)
[2021-11-27] MEDS: ALBUT/IPRATROP 3MG/0.5MG NEB 3 ML VIAL NEB SCH ×4 (08:06→19:24)
[2021-11-27] MEDS: methylPREDNISolone 40 MG in SYRINGE 0 ML IV SCH ×2 (08:42→16:17)
[2021-11-27] MEDS: PANTOprazole 40 MG TAB PO SCH (08:42)
[2021-11-27] MEDS: ARIPiprazole 5 MG TAB PO SCH (08:42)
[2021-11-27] MEDS ORDERED: SERTRALINE HCL 100 MG TABLET PO SCH (09:00)
[2021-11-27] MEDS: DOXYCYCLINE HYCLATE 100 MG CAP PO SCH ×2 (12:11→20:48)
--- NOTE | 2021-11-27 13:13 | Electrocardiogram Report ---
Test Reason : Blood Pressure : / mmHG Vent. Rate : 112 BPM Atrial Rate : 112 BPM P-R Int : 136 ms QRS Dur : 092 ms QT Int : 336 ms P-R-T Axes : 049 040 024 degrees QTc Int : 458 ms Sinus tachycardia Otherwise normal ECG When compared with ECG of 07-NOV-2019 18:14, Vent. rate has increased BY 37 BPM Confirmed by Rafy Patel ([id number]) on 11/27/2021 1:13:21 PM Referred By: [facility] Confirmed By:Rafy Patel
--- NOTE | 2021-11-27 13:19 | Electrocardiogram Report ---
Test Reason : Blood Pressure : / mmHG Vent. Rate : 096 BPM Atrial Rate : 096 BPM P-R Int : 140 ms QRS Dur : 098 ms QT Int : 400 ms P-R-T Axes : 066 043 018 degrees QTc Int : 505 ms Normal sinus rhythm Prolonged QT Abnormal ECG When compared with ECG of 26-NOV-2021 21:42, (unconfirmed) No significant change was found Confirmed by Rafy Patel ([id number]) on 11/27/2021 1:19:31 PM Referred By: [facility] Confirmed By:Rafy Patel
[2021-11-27 14:54] LABS: Troponin I 0.54 ng/ml (0-0.04)
[2021-11-27 15:05] LABS: Appearance Urine Clear (Clear); Bacteria Urine Automated Negative (Negative); Bilirubin Urine Negative (Negative); Blood Urine Negative (Negative); Color Urine Yellow; Glucose Urine UA Negative (Negative); Ketones Urine Negative (Negative); Leukocyte Esterase Urine Negative (Negative); Nitrite Urine Negative (Negative); Protein Urine 2+ (Negative); RBC Urine Automated 0-4 /hpf (0-4); Specific Gravity Urine 1.012 (1.000-1.030); Urobilinogen Urine Negative (Negative); pH Urine 5.5 (4.5-7.5)
[2021-11-27] MEDS: WARFARIN SOD 10 MG TAB PO SCH (16:17)
--- NOTE | 2021-11-27 20:53 | Hospitalist Progress Note ---
Date of Service November 27, 2021 Assessment & Plan (1) Human metapneumovirus (hMPV) pneumonia: Plan: Human Metapneumonia virus/secondary bacterial pneumonia with hypoxia- Given Solu-Medrol 125 mg IV in ED, vancomycin IV and aztreonam IV Transition to ceftriaxone. Solu-Medrol 40 mg IV every 8 hours will taper to daily. Duonebs every 4 hours while awake and every 2 hours when necessary. Guaifenesin extended release 12 mg p.o. twice daily If remains on room air will discharge. (2) Secondary bacterial pneumonia: Plan: See above (3) Pneumonia involving right lung: Plan: See above (4) Elevated troponin: Plan: Elevated troponin/atrial fibrillation/cardiomyopathy/V. tach history/AICD- Elevated troponin likely myocardial demand ischemia The patient will be admitted to telemetry for serial cardiac enzymes, serial EKG's, cardiac rhythm monitoring Continue carvedilol 37.5 mg p.o. twice daily, dofetilide 500 mcg p.o. every 12 hours and warfarin Hold lisinopril (5) A-fib: Plan: See above (6) On Coumadin for atrial fibrillation: Plan: See above (7) Cardiomyopathy: Plan: See above (8) AICD (automatic cardioverter/defibrillator) present: Plan: See above (9) V-tach: Plan: See above Keep potassium greater than equal to 4 and magnesium greater than or equal to 2 (10) Schizophrenia: Plan: Continue aripiprazole and sertraline (11) Hypoxia: Plan: See above (12) Hypomagnesemia: Plan: 2 g IV magnesium replacement for magnesium of 1.6 (13) Hypothyroidism: Plan: Continue levothyroxine 50 mcg daily Admission and Anticipated Discharge Date Admission Date: November 26, 2021 Subjective Patient reports breathing better. Patient states he is not back to his baseline. Review of Systems Review of Systems: All systems reviewed & are unremarkable except as noted in HPI & below Physical Exam Physical Exam: The patient is awake, alert and oriented 3, well developed and well nourished, normocephalic and atraumatic, lying in bed and in no acute distress. HEENT--PERRL, EOMI, mucous membranes and oropharynx Normal. Neck--supple. No JVD. No bruits. Thyroid normal, trachea midline, no adenopathy. Heart--normal S1 and S2. No murmurs, rubs or gallops. Lungs--decreased breath sounds right lower lung. no respiratory distress, no accessory muscle use. Abdomen--normal bowel sounds and soft. Nontender. Nondistended, no hernias or masses, no organomegaly. Extremities--no cyanosis or clubbing. No edema. Dermatologic--normal skin turgor, normal color, no abnormal lymph nodes, no rash. Neurologic--cranial nerves II through XII grossly intact. Rheumatologic--normal range of motion. Psychiatric--normal affect. Results & Data Results & Data ([facility]) Vital Signs (Past 12 Hours) Vital Signs Temp Pulse Resp BP Pulse Ox 11/27/21 19:39 36.3 C L 81 20 163/78 H 93 11/27/21 19:24 83 15 94 11/27/21 16:00 37.1 C 80 20 118/79 92 11/27/21 15:14 80 18 92 11/27/21 11:28 73 18 98 11/27/21 11:26 36.7 C 72 20 124/44 L 98 PG Care Time/CCT Total # of Minutes Spent Total Time Spent with Patient: Total time spent is greater than 50% in coordination of care (as documented) at patient's floor/unit and/or counseling patient: Coding Level of Care Code 36459 Subseq Hosp Care Lvl 2 Diagnoses Human metapneumovirus (hMPV) pneumonia J12.3 Secondary bacterial pneumonia J15.9 Pneumonia involving right lung J18.9 Lung location: unspecified part of lung Pneumonia type: due to unspecified organism Elevated troponin R77.8 A-fib I48.91 On Coumadin for atrial fibrillation I48.91; Z79.01 Cardiomyopathy I42.9 AICD (automatic cardioverter/defibrillator) present Z95.810 V-tach I47.2 Schizophrenia F20.9 Hypoxia R09.02 Hypomagnesemia E83.42 Hypothyroidism E03.9 (1) Pneumonia involving right lung Lung location: unspecified part of lung Pneumonia type: due to unspecified organism Qualified Code(s): J18.9 - Pneumonia, unspecified organism
[2021-11-27] MEDS ORDERED: cefTRIAXone SODIUM 2,000 MG in DEXTROSE 5% 50 ML IV SCH (22:00)
[2021-11-28] MEDS: LEVOTHYROXINE SODIUM 50 MCG TABLET PO SCH (05:54)
[2021-11-28 06:31] LABS: Hemoglobin 14.7 g/dL (14.0-18.0); Immature Granulocytes # (auto) 0.01 K/uL (0.00-0.02); Immature Granulocytes % (auto) 0.1 %; Lymphocytes # (auto) 0.89 K/uL (1.2-3.4); Lymphocytes % (auto) 8.4 %; Mean Corpuscular Hemoglobin 26.4 pg (25-34); Mean Corpuscular Volume 82.7 fL (80-100); Mean Platelet Volume 9.8 fL (7.4-10.4); Monocytes # (auto) 0.88 K/uL (0.11-0.59); Monocytes % (auto) 8.3 %; Neutrophils # (auto) 8.84 K/uL (1.4-6.5); Neutrophils % (auto) 83.2 %; Platelet Count 297 K/uL (130-400); RDW Coefficient of Variation 16.5 % (11.5-14.5); RDW Standard Deviation 49.9 fL (36.4-46.3); Red Blood Count 5.56 M/uL (4.7-6.1); White Blood Count 10.62 K/uL (4.8-10.8)
[2021-11-28] MEDS: ALBUT/IPRATROP 3MG/0.5MG NEB 3 ML VIAL NEB SCH ×4 (07:27→19:59)
[2021-11-28 07:51] LABS: Troponin I 0.1 ng/ml (0-0.04)
--- NOTE | 2021-11-28 08:38 | Hospitalist Progress Note ---
Date of Service November 28, 2021 Assessment & Plan (1) Human metapneumovirus (hMPV) pneumonia: Plan: Human Metapneumonia virus/secondary bacterial pneumonia with hypoxia- Given Solu-Medrol 125 mg IV in ED, vancomycin IV and aztreonam IV Transition to ceftriaxone. Solu-Medrol transition oral prednisone taper Duonebs every 4 hours while awake and every 2 hours when necessary. Guaifenesin extended release 12 mg p.o. twice daily I discussed this case with Dr. Syed in the [facility]. He recommended due to housing issues and need to have droplet isolation that we allow them to prepare for the patient to return on 11/29/2021 as they feel they will have a appropriate bed and situation available to continue his convalescence from his human metapneumovirus. He also was comfortable with a steroid taper. (2) Secondary bacterial pneumonia: Plan: Will cease treatment of secondary bacterial pneumonia at this time (3) Pneumonia involving right lung: Plan: See above (4) Elevated troponin: Plan: Elevated troponin/atrial fibrillation/cardiomyopathy/V. tach history/AICD- Elevated troponin likely myocardial demand ischemia Continue carvedilol 37.5 mg p.o. twice daily, dofetilide 500 mcg p.o. every 12 hours and warfarin resume lisinopril (5) A-fib: Plan: See above (6) On Coumadin for atrial fibrillation: Plan: Not had an INR checked since 11/26 will repeat on 11/28 once again in the morning of 11/29 (7) Cardiomyopathy: Plan: See above (8) AICD (automatic cardioverter/defibrillator) present: Plan: See above (9) V-tach: Plan: See above Keep potassium greater than equal to 4 and magnesium greater than or equal to 2 (10) Schizophrenia: Plan: Continue aripiprazole and sertraline (11) Hypoxia: Plan: See above (12) Hypomagnesemia: Plan: Replete and recheck on 11/28 (13) Hypothyroidism: Plan: Continue levothyroxine 50 mcg daily Admission and Anticipated Discharge Date Admission Date: November 26, 2021 Subjective Patient states he is feeling better but not back to his baseline still very fatigued and cough productive of scant clear mucus Review of Systems Review of Systems: Mild distress and fatigue no headache, no visual changes no speech or swallowing issues no chest pain, pressure or palpitations still complains of shortness of breath, non productive cough but no no abdominal pain, nausea or vomiting, diarrhea or constipation no dysuria, hematuria or frequency no focal joint pain or swelling no back pain, CVA tenderness or radicular pain no bruising, bleeding or rashes no focal signs of weakness or numbness or altered sensation no complaints of anxiety or depression.. Physical Exam Physical Exam: The patient appeared well nourished and normally developed. Vital signs as documented. Head exam is normocephalic atraumatic Neck is without JVD, thyromegaly, or carotid bruits. Lungs are bronchial breath sounds are heard throughout the right lung left lung is relatively clear decreased at the bases Cardiac exam, Rhythm is regular.. No murmurs, rubs or gallops. Abdominal exam reveals normal bowel sounds, soft non tender, no masses Extremities are nonedematous and both pedal pulses are present Neurologic exam is alert and oriented, no focal loss of strength or sensation Skin is without bruises or rashes Psychologically is without concerns for anxiety or depression.. Results & Data Results & Data ([facility]) Vital Signs (Past 12 Hours) Vital Signs Temp Pulse Resp BP Pulse Ox Pulse Ox 11/28/21 07:27 80 20 94 11/28/21 07:04 97.3 F L 82 18 137/85 94 11/28/21 03:18 97.5 F L 71 17 131/67 92 11/27/21 23:05 98.1 F 80 19 132/71 93 11/27/21 23:00 97 PG Care Time/CCT Total # of Minutes Spent Total Time Spent with Patient: Total time spent is greater than 50% in coordination of care (as documented) at patient's floor/unit and/or counseling patient: Coding Level of Care Code 48596 Subseq Hosp Care Lvl 3 Diagnoses Human metapneumovirus (hMPV) pneumonia J12.3 Secondary bacterial pneumonia J15.9 Pneumonia involving right lung J18.9 Lung location: unspecified part of lung Pneumonia type: due to unspecified organism Elevated troponin R77.8 A-fib I48.91 On Coumadin for atrial fibrillation I48.91; Z79.01 Cardiomyopathy I42.9 AICD (automatic cardioverter/defibrillator) present Z95.810 V-tach I47.2 Schizophrenia F20.9 Hypoxia R09.02 Hypomagnesemia E83.42 Hypothyroidism E03.9 (1) Pneumonia involving right lung Lung location: unspecified part of lung Pneumonia type: due to unspecified organism Qualified Code(s): J18.9 - Pneumonia, unspecified organism
[2021-11-28] MEDS ORDERED: methylPREDNISolone 40 MG in SYRINGE 0 ML IV SCH (09:00)
[2021-11-28] MEDS: DOFETILIDE 125 MCG CAPSULE PO SCH ×2 (09:31→20:59)
[2021-11-28] MEDS: ARIPiprazole 5 MG TAB PO SCH (09:31)
[2021-11-28] MEDS: carvediloL 12.5 MG TAB PO SCH ×2 (09:31→22:48)
[2021-11-28] MEDS: DOXYCYCLINE HYCLATE 100 MG CAP PO SCH (09:31)
[2021-11-28] MEDS: carvediloL 25 MG TAB PO SCH ×2 (09:31→20:58)
[2021-11-28] MEDS: PANTOprazole 40 MG TAB PO SCH (09:31)
[2021-11-28] MEDS: predniSONE 20 MG TAB PO SCH (09:42)
[2021-11-28 09:44] LABS: Albumin Globulin Ratio 1.1 (0.9-2); Albumin Level 3.5 gm/dl (3.4-5.0); BUN Creatinine Ratio 16.9 (10-20); Bilirubin,Total 0.5 mg/dl (0.2-1.0); Calcium 8.6 mg/dl (8.5-10.1); Est GFR (African American) 63.3 ml/min; Est GFR (Non-African American) 54.6 ml/min; Globulin 3.3 gm/dl (2.5-4.0); Magnesium 2.4 mg/dl (1.7-2.4); Potassium 4.3 mmol/L (3.5-5.1); Total Protein 6.8 gm/dl (6.0-8.3)
[2021-11-28] MEDS: WARFARIN SOD 10 MG TAB PO SCH (15:52)
[2021-11-29] MEDS: LEVOTHYROXINE SODIUM 50 MCG TABLET PO SCH (06:23)
[2021-11-29 07:00] LABS: Basophils # (auto) 0.01 K/uL (0-0.2); Basophils % (auto) 0.1 %; Eosinophils # (auto) 0.01 K/uL (0-0.5); Eosinophils % (auto) 0.1 %; Hematocrit (blood only) 44.4 % (42-52); Hemoglobin 14.2 g/dL (14.0-18.0); Immature Granulocytes # (auto) 0.02 K/uL (0.00-0.02); Immature Granulocytes % (auto) 0.2 %; Lymphocytes % (auto) 20.3 %; Mean Corpuscular Hemoglobin 26.6 pg (25-34); Mean Corpuscular Volume 83.3 fL (80-100); Mean Platelet Volume 10.2 fL (7.4-10.4); Monocytes # (auto) 0.92 K/uL (0.11-0.59); Monocytes % (auto) 9.3 %; Neutrophils # (auto) 6.89 K/uL (1.4-6.5); Platelet Count 313 K/uL (130-400); RDW Coefficient of Variation 16.8 % (11.5-14.5); RDW Standard Deviation 51.5 fL (36.4-46.3); Red Blood Count 5.33 M/uL (4.7-6.1); White Blood Count 9.85 K/uL (4.8-10.8)
[2021-11-29 07:17] LABS: INR 3.5 (0.9-1.1)
[2021-11-29] MEDS: ALBUT/IPRATROP 3MG/0.5MG NEB 3 ML VIAL NEB SCH ×2 (07:27→11:23)
[2021-11-29 07:29] LABS: Albumin Globulin Ratio 1.2 (0.9-2); Albumin Level 3.3 gm/dl (3.4-5.0); BUN Creatinine Ratio 19.1 (10-20); Bilirubin,Total 0.5 mg/dl (0.2-1.0); Calcium 8.1 mg/dl (8.5-10.1); Creatinine Clr Calc Pharmacy 126.3 ml/min; Est GFR (African American) 67.3 ml/min; Est GFR (Non-African American) 58.1 ml/min; Globulin 2.8 gm/dl (2.5-4.0); Magnesium 2.2 mg/dl (1.7-2.4); Potassium 3.8 mmol/L (3.5-5.1); Total Protein 6.1 gm/dl (6.0-8.3)
[2021-11-29] MEDS ORDERED: guaiFENesin 600 MG TABCR PO SCH (09:00)
[2021-11-29] MEDS: PANTOprazole 40 MG TAB PO SCH (09:33)
[2021-11-29] MEDS: predniSONE 20 MG TAB PO SCH (09:33)
[2021-11-29] MEDS: DOFETILIDE 125 MCG CAPSULE PO SCH (09:33)
[2021-11-29] MEDS: carvediloL 25 MG TAB PO SCH (09:34)
[2021-11-29] MEDS: carvediloL 12.5 MG TAB PO SCH (09:34)
[2021-11-29] MEDS: ARIPiprazole 5 MG TAB PO SCH (09:34)
[2021-11-29 10:50] VITALS: TEMP 98.4; O2SAT 95
[2021-11-29 11:24] VITALS: PULSE 77
--- NOTE | 2021-11-29 12:13 | Hospitalist Progress Note ---
Date of Service November 29, 2021 Assessment & Plan (1) Human metapneumovirus (hMPV) pneumonia: Plan: Human Metapneumonia virus/secondary bacterial pneumonia with hypoxia- Treated with Solu-Medrol , vancomycin IV and aztreonam IV Transitioned to ceftriaxone. Solu-Medrol transition oral prednisone taper Duonebs every 4 hours while awake and every 2 hours when necessary. Guaifenesin extended release 12 mg p.o. twice daily (2) Secondary bacterial pneumonia: Plan: Azithromycin po for 5 more days (3) Pneumonia involving right lung: Plan: See above (4) Elevated troponin: Plan: Elevated troponin/atrial fibrillation/cardiomyopathy/V. tach history/AICD- Elevated troponin likely myocardial demand ischemia Continue carvedilol 37.5 mg p.o. twice daily, dofetilide 500 mcg p.o. every 12 hours , warfarin, lisinopril (5) A-fib: Plan: See above. Med management (6) On Coumadin for atrial fibrillation: Plan: monitor INR (7) Cardiomyopathy: Plan: stable. med management (8) AICD (automatic cardioverter/defibrillator) present: Plan: See above (9) V-tach: Plan: See above Keep potassium greater than equal to 4 and magnesium greater than or equal to 2 (10) Schizophrenia: Plan: Continue aripiprazole and sertraline (11) Hypoxia: Plan: resolved. Now on room air (12) Hypomagnesemia: Plan: Repleted (13) Hypothyroidism: Plan: Continue levothyroxine 50 mcg daily Plan: discharge back to custodial today. 11/29 Admission and Anticipated Discharge Date Admission Date: November 26, 2021 Subjective Alert. No acute distress Review of Systems Review of Systems: negative except for thick mucus and wheezing Physical Exam Physical Exam: lungs with midline ronchi and expiratory wheezing. No distress. No tachypnea Results & Data Results & Data ([facility]) Vital Signs (Past 12 Hours) Vital Signs Temp Pulse Pulse Resp BP Pulse Ox Pulse Ox 11/29/21 11:23 77 18 95 11/29/21 10:49 36.9 C 81 21 128/82 95 11/29/21 10:34 98 11/29/21 08:00 55 L 11/29/21 07:28 68 22 98 11/29/21 07:23 36.6 C 68 16 160/99 H 98 11/29/21 07:02 36.6 C 63 22 143/90 H 98 11/29/21 03:58 36.8 C 60 18 195/78 H 97 11/29/21 00:49 76 Laboratory Results 11/29/21 06:14 11/29/21 06:14 PG Care Time/CCT Total # of Minutes Spent Total Time Spent with Patient: Total time spent is greater than 50% in coordination of care (as documented) at patient's floor/unit and/or counseling patient: Coding Level of Care Code 87418 Subseq Hosp Care Lvl 3 Diagnoses Human metapneumovirus (hMPV) pneumonia J12.3 Secondary bacterial pneumonia J15.9 Pneumonia involving right lung J18.9 Lung location: unspecified part of lung Pneumonia type: due to unspecified organism Elevated troponin R77.8 A-fib I48.91 On Coumadin for atrial fibrillation I48.91; Z79.01 Cardiomyopathy I42.9 AICD (automatic cardioverter/defibrillator) present Z95.810 V-tach I47.2 Schizophrenia F20.9 Hypoxia R09.02 Hypomagnesemia E83.42 Hypothyroidism E03.9 (1) Pneumonia involving right lung Lung location: unspecified part of lung Pneumonia type: due to unspecified organism Qualified Code(s): J18.9 - Pneumonia, unspecified organism
[2021-11-29 12:30] VITALS: BP 125/51
--- NOTE | 2021-12-20 15:18 | Discharge Summary ---
Date of Service November 29, 2021 Admission HPI Per Admitting Provider The patient is a 36-year-old male resident of [facility], with a past medical history including AICD, superobesity, atrial fibrillation, hypothyroidism, schizophrenia, hypertension, asthma, cardiomyopathy, V. tach and ventral hernia. He presents with symptoms as noted above. He has been vaccinated for COVID-19 Pulse ox in the ED noted to be in the mid 80s, improved to 93% on 2 L nasal cannula Viral study negative for COVID-19. Human metapneumovirus + Chest x-ray with right middle and right lower lobe infiltrates. Troponin 0.54, INR 1.9, magnesium 1.6, creatinine 1.68 and total bilirubin 1.3 Principal Diagnosis viral pneumonia Discharge Exam Normal discharge physical exam Discharge Data Allergies Allergy/AdvReac Type Severity Reaction Status Date / Time penicillin G Allergy Mild Unknown Unverified 11/26/21 22:28 Consultations 11/26/21 23:15 ED Decision to Admit Stat Hospital Course (1) Human metapneumovirus (hMPV) pneumonia: Human Metapneumonia virus/secondary bacterial pneumonia with hypoxia- Treated with Solu-Medrol , vancomycin IV and aztreonam IV Transitioned to ceftriaxone. Solu-Medrol transition oral prednisone taper Duonebs every 4 hours while awake and every 2 hours when necessary. Guaifenesin extended release 12 mg p.o. twice daily (2) Secondary bacterial pneumonia: Azithromycin po for 5 more days (3) Pneumonia involving right lung: See above (4) Elevated troponin: Elevated troponin/atrial fibrillation/cardiomyopathy/V. tach history/AICD- Elevated troponin likely myocardial demand ischemia Continue carvedilol 37.5 mg p.o. twice daily, dofetilide 500 mcg p.o. every 12 hours , warfarin, lisinopril (5) A-fib: See above. Med management (6) On Coumadin for atrial fibrillation: monitor INR (7) Cardiomyopathy: stable. med management (8) AICD (automatic cardioverter/defibrillator) present: See above (9) V-tach: See above Keep potassium greater than equal to 4 and magnesium greater than or equal to 2 (10) Schizophrenia: Continue aripiprazole and sertraline (11) Hypoxia: resolved. Now on room air (12) Hypomagnesemia: Repleted (13) Hypothyroidism: Continue levothyroxine 50 mcg daily discharge back to long term today. 3/3 Total Time Total Time Spent Total Time Spent (In Minutes): 35 minutes Discharge Plan Discharge Items [facility] Disposition[facility] Reason For Visit: SHORTNESS OF BREATH Discharge Diagnosis: Viral/bacterial pneumonia, bronchospasm, transient hypoxia Condition on Discharge: Fair Activity: Resume your previous activity Non-emergency contact: Primary Care Provider Call non-emergency contact if: you have any medication questions and your symptoms worsen Follow-up/Referrals: Zackary HAN [Primary Care Provider] - Diet: Regular Addtl Attending Provider Instructions: prednisone tapering dose. Azithromycin for 5 days. Albuterol inhaler four times a day Pending Studies at Discharge: No Stand-Alone Forms: My [facility] Skilled Items Patient informed of condition?: Yes Discharge Level of Care: Other Communicable Disease: No Discharge Prognosis: Stable Lines: None Urinary Catheter: No Medications and DC Order Prescriptions: New albuterol sulfate 90 mcg/actuation HFA aerosol inhaler 2 inh inhalation QID Qty: 6.7 RF: 0 prednisone 10 mg tablet See Rx Instructions .ROUTE .COMPLEX Qty: 36 RF: 0 Continued fluticasone propion-salmeterol [Advair Diskus] 250-50 mcg/dose Blister With Device 1 inh INHALATION BID RF: 0 carvedilol 25 mg Tablet 25 mg PO BID RF: 0 carvedilol 12.5 mg Tablet 12.5 mg PO BID RF: 0 warfarin 10 mg Tablet 10 mg PO HS RF: 0 sertraline 100 mg Tablet 100 mg PO DAILY RF: 0 levothyroxine 50 mcg Tablet 50 mcg PO DAILY RF: 0 pantoprazole 40 mg Tablet,Delayed Release (Dr/Ec) 40 mg PO DAILY RF: 0 lisinopril 40 mg Tablet 40 mg PO DAILY RF: 0 dofetilide 500 mcg Capsule 500 mcg PO Q12H RF: 0 aripiprazole [Abilify] 5 mg Tablet 5 mg PO DAILY RF: 0 Discharge Orders: Discharge Order (Routine); Ordered 11/29/21 Ordered By: Pavan Roldan Admission Data Admit Date/Time: 11/26/21 23:58 Attending Provider: Pavan Roldan Admit Provider: Ashutosh Bills Primary Care Provider: Zackary HAN Other Providers: Ashutosh Bills Other Interventions: Discharge Summary Assessment (RN) Last Done: 11/29/21 12:28 Coding Level of Care Code D/C DAY MANAGEMENT >30 MINS Diagnoses Human metapneumovirus (hMPV) pneumonia J12.3 Secondary bacterial pneumonia J15.9 Pneumonia involving right lung J18.9 Lung location: unspecified part of lung Pneumonia type: due to unspecified organism Elevated troponin R77.8 A-fib I48.91 On Coumadin for atrial fibrillation I48.91; Z79.01 Cardiomyopathy I42.9 AICD (automatic cardioverter/defibrillator) present Z95.810 V-tach I47.2 Schizophrenia F20.9 Hypoxia R09.02 Hypomagnesemia E83.42 Hypothyroidism E03.9
== END 2021-11-29 14:16 | DRG 194 ==
LOC: ED 21:31 → SUATTDRO 23:58 → 2S 23:58

== ENCOUNTER 2024-03-13 19:57 | Observation (INO) ==
--- NOTE | 2024-03-13 20:34 | Emergency Department Note ---
Impression & Plan Cardiomyopathy ADMIT ED Provider Note HPI: History obtained from patient. The patient is a 38-year-old gentleman with history of cardiomyopathy, ventricular tachycardia, status post AICD placement in 2016, who presents from his correctional facility to the emergency department with a chief complaint of defibrillator firing. Patient states that this happened at approximately 7 PM. Patient states he was working out in the gym at the time. Patient denies any preceding chest pain, states he has felt more short of breath over the past several days prior to the event. Patient states that he was lifting some weights when he felt a shock in his chest and believes he lost consciousness for several seconds. On arrival here to the ED the patient is hemodynamically stable, he is in no acute distress on my initial assessment. Patient denies any current chest pain or shortness of breath. ROS: - Per HPI Differential Diagnosis: Arrhythmia to include atrial fibrillation with RVR, ventricular tachycardia, ventricular fibrillation, WPW, SVT, critical electrolyte abnormalities to include hyperkalemia, hypermagnesemia, hypomagnesemia, hypokalemia, Acute coronary syndrome , amongst other potential pathologies. *Outpatient medications and allergy history reviewed. PE: General: Alert HEENT: Normocephalic, trachea midline Eyes: Extraocular eye movement is intact, no scleral erythema Pulmonary: Clear to auscultation bilaterally, no wheezing Cardio: Regular rate and rhythm GI: Abdomen is soft to palpation : No suprapubic tenderness MSK: No evidence of trauma or malformation of the extremities, no edema Skin: No evidence of rash Neuro: Alert, no focal deficits Psychiatric: Cooperative INDEPENDENT INTERPRETATIONS: grip boss: (As interpreted by myself): - An order was placed for continuous cardiac monitoring - Patient was noted to be in Sinus rhythm with a rate of 75 EKG: (As interpreted by myself): Rate: 89 Rhythm: Normal sinus rhythm Intervals: Within normal limits ST changes: No ST elevation Time: 2010 Chest x-ray: (As interpreted by myself): No acute disease Interventions provided in ED: -IV magnesium Medical Decision Making: IV was established and lab work obtained, patient was placed on batch tester. EKG per my interpretation shows normal sinus rhythm without any acute ischemic changes. CMP lab work was obtained and shows a mild leukopenia at 4.70, hemoglobin is normal at 15.0, platelet count is normal, INR is noted to be elevated at 6.8, patient denies any recent bleeding. CMP does not show any evidence of any critical findings, creatinine is mildly elevated at 1.48, magnesium is low at 1.5 which was ordered for IV repletion. Troponin is noted to be mildly elevated at 45.5. Patient has a [employer] AICD. This was not compatible with our bedside interrogation device. [employer] inbound call center representative therefore was contacted by the ED RN and unfortunately he is not able to assess the patient this evening. Given the patient's event with unclear etiology as well as his low magnesium and elevated troponin, I did discuss the case with the on-call admitting resident for the [employer] Hospitalist service. Patient was placed for admission to the service of Dr. Bills. Consultations: - Dr. Bills, Hospitalist Disposition discussion held by myself with: - Patient and halfway staff at bedside Diagnosis: 1. AICD firing by history, acute 2. Elevated troponin, acute 3. Hypomagnesemia, acute 4. Elevated INR Disposition: Admission Ronen Preciado DO Emergency Medicine Past Med/Surg History Problem List (Updated 03/13/24 @ 23:30 by Ronen Preciado DO) Mass of scalp Hypoxia Secondary bacterial pneumonia Human metapneumovirus (hMPV) pneumonia Pneumonia involving right lung (Acute) Congestive heart failure (Acute) Elevated troponin (Acute) Hypomagnesemia (Acute) AICD at end of battery life Preoperative cardiovascular examination Super obesity On Coumadin for atrial fibrillation A-fib Ventral hernia without obstruction or gangrene Dyspnea (Acute) Hypothyroidism (Acute) Schizophrenia HTN (hypertension) Asthma Cardiomyopathy (Acute) V-tach (Acute) AICD (automatic cardioverter/defibrillator) present (Acute) Shortness of breath (Acute) Medical History A-fib Asthma Cardiac defibrillator in place Cardiomyopathy Hernia HTN (hypertension) ICD (implantable cardioverter-defibrillator) in place [employer] subcutaneous ICD model A209, implanted 05/07/2016 On Coumadin for atrial fibrillation Schizophrenia Super obesity Syncope Ventral hernia without obstruction or gangrene Surgical History History of cardiac defibrillator placement Social History Smoking Status: Current every day smoker Tobacco Type: E-cigarettes / Vaping Do You Dip or Chew Tobacco: No; Hx Alcohol Use: No Hx Substance Use: No Preferred Language: Upper Sorbian Communication Ability: Effective Signal Tower Operator Required: No Beliefs That Will Affect Care: None Current Living Situation: Other Current Living Situation Comment: correctional facility ([facility]) Feels Safe at Home: Yes Assistive Devices: None Allergies Allergies Allergy/AdvReac Type Severity Reaction Status Date / Time penicillin G Allergy Mild Unknown Unverified 11/12/22 08:50 Home Meds Home Medications Medication Instructions Recorded Confirmed levothyroxine 50 mcg tablet 50 mcg PO DAILY 11/26/21 03/13/24 spironolactone 25 mg tablet 25 mg PO QAM 07/15/22 03/13/24 (Aldactone) lisinopril 40 mg tablet 40 mg PO DAILY 11/08/22 03/13/24 dofetilide 500 mcg capsule 500 mcg PO Q12H 02/16/24 03/13/24 (Tikosyn) sertraline 100 mg tablet 200 mg PO HS 02/16/24 03/13/24 albuterol sulfate 90 mcg/actuation 2 puff inhalation QID PRN 03/13/24 03/13/24 aerosol inhaler Shortness Of Breath warfarin 10 mg tablet 10 mg PO HS 03/13/24 03/13/24 Results & Data (ED) Vital Signs Vital Signs - 24 hr 03/13/24 20:01 03/13/24 20:14 03/13/24 20:32 Temperature 36.6 C Temperature Source Temporal Artery Scan Pulse Rate 93 H Pulse Rate [Apical] Pulse Rhythm [Apical] Pulse Strength [Apical] Respiratory Rate 18 Respiratory Effort / Characteristics Non-Labored Spontaneous Respiratory Depth Normal Respiratory Pattern Regular Blood Pressure 119/72 Blood Pressure [Right Arm] Blood Pressure Mean 87 Blood Pressure Mean [Right Arm] Blood Pressure Position Sitting Pulse Oximetry 97 100 100 Oxygen Delivery Method Room Air Room Air Room Air Sepsis Recent Fever Within 48 Hours No Sepsis New/Unexplained Change in Mental Status N/A Sepsis Action Taken by Nursing No Action Required 03/13/24 20:32 03/13/24 20:32 03/13/24 21:00 Temperature Temperature Source Pulse Rate 82 Pulse Rate [Apical] 79 75 Pulse Rhythm [Apical] Regular Pulse Strength [Apical] Normal Respiratory Rate 16 16 Respiratory Effort / Characteristics Non-Labored Respiratory Depth Normal Respiratory Pattern Blood Pressure Blood Pressure [Right Arm] 135/83 Blood Pressure Mean Blood Pressure Mean [Right Arm] 100 Blood Pressure Position Pulse Oximetry 99 100 Oxygen Delivery Method Room Air Room Air Sepsis Recent Fever Within 48 Hours Sepsis New/Unexplained Change in Mental Status Sepsis Action Taken by Nursing Laboratory Data 03/13/24 20:45 03/13/24 20:45 Lab Results 03/13/24 03/13/24 Range/Units 20:45 22:44 WBC 4.70 L (4.8-10.8) K/ul RBC 5.35 (4.70-6.10) M/uL Hgb 15.0 (14.0-18.0) g/dl Hct 46.2 (42.0-52.0) % MCV 86.4 (80.0-100.0) fL MCH 28.0 (25.0-34.0) pg MCHC 32.5 (32.0-36.0) g/dL RDW Std Deviation 48.3 H (36.4-46.3) fL RDW Coeff of Rosangela 15.3 H (11.5-14.5) % Plt Count 315 (130-400) K/uL MPV 9.8 (9.4-12.4) fL Immature Gran % (Auto) 0.2 % Neut % (Auto) 52.2 % Lymph % (Auto) 32.3 % Ector % (Auto) 13.8 % Eos % (Auto) 1.3 % Baso % (Auto) 0.2 % Neut # (Auto) 2.45 (1.40-6.50) K/uL Lymph # (Auto) 1.52 (1.20-3.40) K/uL Ector # (Auto) 0.65 H (0.11-0.59) K/uL Eos # (Auto) 0.06 (0.00-0.50) K/uL Baso # (Auto) 0.01 (0.00-0.20) K/uL Immature Gran # (Auto) 0.01 (0.01-0.20) K/uL PT 62.5 H (9.0-12.0) Seconds INR 6.8 H* (0.9-1.1) Sodium 137 (136-145) mmol/L Potassium 3.8 (3.5-5.1) mmol/L Chloride 105 (98-107) mmol/L Carbon Dioxide 27 (21-32) mmol/L Anion Gap 5 (3-11) BUN 22 (6-23) mg/dl Creatinine 1.48 H (0.6-1.4) mg/dl Est Cr Clr Drug Dosing 98.0 ml/min Est GFR ( Amer) 68.6 ml/min Est GFR (Non-Af Amer) 59.2 ml/min BUN/Creatinine Ratio 14.9 (10-20) Glucose 87 (70-99(Fasting)) mg/dl Calcium 9.3 (8.6-10.3) mg/dl Magnesium 1.5 L (1.7-2.4) mg/dl Total Bilirubin 1.2 H (0.2-1.0) mg/dl AST 17 (13-39) U/L ALT 11 (7-52) U/L Alkaline Phosphatase 66 (34-104) U/L Troponin I High Sens 45.5 H 44.2 H (0-20) pg/ml Total Protein 6.9 (6.0-8.3) gm/dl Albumin 3.8 (3.4-5.0) gm/dl Globulin 3.1 (2.5-4.0) gm/dl Albumin/Globulin Ratio 1.2 (0.9-2) Lipase 5 L (11-82) U/L TSH 3.171 (0.300-4.500) uIu/ml Administered Medications Discontinued Medications Magnesium Sulfate/Dextrose (Magnesium Sulfate / D5w) 1 gm in 100 mls @ 200 mls/hr IV Q30M EDGAR Stop: 03/13/24 22:31 Last Infusion: 03/13/24 22:41 Dose: Infused Documented By: Admin: 03/13/24 22:10 Dose: 200 mls/hr Documented By: Infusion: 03/13/24 22:08 Dose: Infused Documented By: Admin: 03/13/24 21:38 Dose: 200 mls/hr Documented By: Discharge Plan Visit Data Chief Complaint: Cardiac Assessment Stated Complaint: INTERNAL DEFIBRILATIOR FIRED ED Provider: Ronen Preciado Discharge Problem: Cardiomyopathy Forms Stand Alone Forms: [facility] Prescriptions Prescriptions: No Action spironolactone [Aldactone] 25 mg tablet 25 mg PO QAM sertraline 100 mg tablet 200 mg PO HS dofetilide [Tikosyn] 500 mcg capsule 500 mcg PO Q12H levothyroxine 50 mcg Tablet 50 mcg PO DAILY lisinopril 40 mg tablet 40 mg PO DAILY warfarin 10 mg Tablet 10 mg PO HS albuterol sulfate 90 mcg/actuation Hfa Aerosol Inhaler 2 puff INHALATION QID PRN (Reason: Shortness Of Breath) Referrals Referrals: Zackary HAN [Primary Care Provider] - Discharge Problem: Cardiomyopathy Qualifiers: Cardiomyopathy type: unspecified Qualified Code(s): I42.9 - Cardiomyopathy, unspecified
[2024-03-13 21:21] LABS: Basophils # (auto) 0.01 K/uL (0.00-0.20); Basophils % (auto) 0.2 %; Eosinophils # (auto) 0.06 K/uL (0.00-0.50); Eosinophils % (auto) 1.3 %; Hematocrit (blood only) 46.2 % (42.0-52.0); Immature Granulocytes # (auto) 0.01 K/uL (0.01-0.20); Immature Granulocytes % (auto) 0.2 %; Lymphocytes # (auto) 1.52 K/uL (1.20-3.40); Lymphocytes % (auto) 32.3 %; Mean Corpuscular Hgb Conc 32.5 g/dL (32.0-36.0); Mean Corpuscular Volume 86.4 fL (80.0-100.0); Mean Platelet Volume 9.8 fL (9.4-12.4); Monocytes # (auto) 0.65 K/uL (0.11-0.59); Monocytes % (auto) 13.8 %; Neutrophils # (auto) 2.45 K/uL (1.40-6.50); Neutrophils % (auto) 52.2 %; Platelet Count 315 K/uL (130-400); RDW Coefficient of Variation 15.3 % (11.5-14.5); RDW Standard Deviation 48.3 fL (36.4-46.3); Red Blood Count 5.35 M/uL (4.70-6.10)
[2024-03-13 21:29] LABS: Albumin Globulin Ratio 1.2 (0.9-2); Albumin Level 3.8 gm/dl (3.4-5.0); BUN Creatinine Ratio 14.9 (10-20); Bilirubin,Total 1.2 mg/dl (0.2-1.0); Calcium 9.3 mg/dl (8.6-10.3); Est GFR (African American) 68.6 ml/min; Est GFR (Non-African American) 59.2 ml/min; Globulin 3.1 gm/dl (2.5-4.0); Magnesium 1.5 mg/dl (1.7-2.4); Potassium 3.8 mmol/L (3.5-5.1); Total Protein 6.9 gm/dl (6.0-8.3)
[2024-03-13 21:36] LABS: Troponin I High Sensitivity 45.5 pg/ml (0-20)
[2024-03-13 21:37] LABS: Prothrombin Time 62.5 Seconds (9.0-12.0)
[2024-03-13] MEDS: MAGNESIUM SULFATE / D5W 1 GM/100 ML BAG IV SCH (21:38)
[2024-03-13 21:45] LABS: Thyroid Stimulating Hormone 3.171 uIu/ml (0.300-4.500)
[2024-03-13 21:59] LABS: INR 6.8 (0.9-1.1)
--- NOTE | 2024-03-13 23:20 | History & Physical Report ---
Date of Service March 13, 2024 Assessment & Plan (1) AICD (automatic cardioverter/defibrillator) present: Plan: -AICD firing on 03/13 at approximately 7 PM after having chest pain. -CBC, CMP, lipase, TSH were all benign. Slightly elevated creatinine at 1.48 -Slightly elevated troponin of 45 which peaked in the ED. -Magnesium of 1.5. Repleted in the ED. -Hemodynamically stable and vital signs stable at time of admission. -[place] AICD in place. Bedside interrogation was not compatible with this device. -[employer] automotive leasing sales representative was contacted by the ED RN, they were unable to interrogate device overnight. Instructed to reach out in the morning. -Cardiology consulted. (2) Hypomagnesemia: Plan: -Magnesium of 1.5. Repleted in the ED. -Will check in a.m. labs. (3) Elevated troponin: Plan: -High-sensitivity troponin peaked at 45.5 in the ED. (4) A-fib: Plan: -History of A-fib on warfarin. Will wait for device interrogation. Not currently in A-fib. -Continue doftilide -INR of 6.8 on admission. Will hold warfarin at this time. Check INR in the a.m. (5) Supratherapeutic INR: Plan: -As above, holding warfarin. (6) Cardiomyopathy: Plan: - as above. (7) Schizophrenia: Plan: -Continue sertraline 200 mg. -History of being on Abilify in the past. (8) HTN (hypertension): Plan: -Continue lisinopril 40 mg daily. (9) Hypothyroidism: Plan: -TSH of 3.171. -Continue levothyroxine 50 mcg daily. Plan Fluids: None Nutrition: Heart healthy Code status: full code DVT ppx: holding warafin Dispo: PCU/telemetry History of Present Illness Chief Complaint: AICD activated, elevated troponin Primary Care Provider: GUILLE Raymundo The patient is a 36-year-old male resident of [facility], with a past medical history including AICD, superobesity, atrial fibrillation, hypothyroidism, schizophrenia, hypertension, asthma, cardiomyopathy, V. tach and ventral hernia. Patient AICD placed in 2015. Patient was working out in the gym at approximately 630/7 PM when he started to have chest pain and then felt a shock in his chest. He lost consciousness for several seconds. States that the chest pain felt like a function of the chest. States that he has been feeling ill for the last couple days. Having some shortness of breath. Feeling fatigued and having some diarrhea. At time of admission patient denies any chest pain or shortness of breath. Allergies Allergy/AdvReac Type Severity Reaction Status Date / Time penicillin G Allergy Mild Unknown Unverified 11/12/22 08:50 Home Medications Medication Instructions Recorded Confirmed Type levothyroxine 50 mcg tablet 50 mcg PO DAILY 11/26/21 03/13/24 History spironolactone 25 mg tablet 25 mg PO QAM 07/15/22 03/13/24 History (Aldactone) lisinopril 40 mg tablet 40 mg PO DAILY 11/08/22 03/13/24 History dofetilide 500 mcg capsule 500 mcg PO Q12H 02/16/24 03/13/24 History (Tikosyn) sertraline 100 mg tablet 200 mg PO HS 02/16/24 03/13/24 History albuterol sulfate 90 mcg/actuation 2 puff inhalation QID PRN 03/13/24 03/13/24 History aerosol inhaler Shortness Of Breath warfarin 10 mg tablet 10 mg PO HS 03/13/24 03/13/24 History Past Med/Surg History Problem List (Updated 03/14/24 @ 14:00 by Rafy Patel MD) PAF (paroxysmal atrial fibrillation) Coumadin toxicity Cardiac arrhythmia Supratherapeutic INR Mass of scalp Hypoxia Secondary bacterial pneumonia Human metapneumovirus (hMPV) pneumonia Pneumonia involving right lung (Acute) Congestive heart failure (Acute) Elevated troponin (Acute) Hypomagnesemia (Acute) AICD at end of battery life Preoperative cardiovascular examination Super obesity On Coumadin for atrial fibrillation A-fib Ventral hernia without obstruction or gangrene Dyspnea (Acute) Hypothyroidism (Acute) Schizophrenia HTN (hypertension) Asthma Cardiomyopathy (Acute) V-tach (Acute) AICD (automatic cardioverter/defibrillator) present (Acute) Shortness of breath (Acute) Medical History A-fib Asthma Cardiac defibrillator in place Cardiomyopathy Hernia HTN (hypertension) ICD (implantable cardioverter-defibrillator) in place [employer] subcutaneous ICD model A209, implanted 05/07/2016 On Coumadin for atrial fibrillation Schizophrenia Super obesity Syncope Ventral hernia without obstruction or gangrene Surgical History History of cardiac defibrillator placement Social History Smoking Status: Former smoker Tobacco Type: Cigarettes Smoking End Date: 1 yr ago; Second Hand Exposure: No; Do You Dip or Chew Tobacco: No; Tobacco Cessation Education Requested by Patient: No Hx Alcohol Use: No Hx Substance Use: No Preferred Language: Egyptian Communication Ability: Effective Photograph Tinter Required: No Beliefs That Will Affect Care: None Current Living Situation: Other Current Living Situation Comment: [facility] Feels Safe at Home: Yes Assistive Devices: None Review of Systems Review of Systems: All systems reviewed & are unremarkable except as noted in Subjective Physical Exam Physical Exam: Constitutional: well-appearing, no acute distress HEENT: NCAT, no conjunctival injection CV: regular rhythm, no murmur appreciated, extremities well-perfused, no LE edema Resp: CTABL, no wheezes/rales/rhonchi appreciated, no increased work of breathing GI: soft, nondistended, nontender, BS normoactive MSK: no gross deformities appreciated Skin: warm, dry, no rash appreciated Neuro: alert, oriented, no focal neurologic deficit appreciated Results & Data Results & Data Vital Signs (Past 12 Hours) Vital Signs Temp Pulse Pulse Resp BP BP Pulse Ox 03/13/24 21:00 75 16 135/83 100 03/13/24 20:32 82 03/13/24 20:32 79 16 99 03/13/24 20:32 100 03/13/24 20:14 100 03/13/24 20:01 36.6 C 93 H 18 119/72 97 O2 Del Method 03/13/24 21:00 Room Air 03/13/24 20:32 03/13/24 20:32 Room Air 03/13/24 20:32 Room Air 03/13/24 20:14 Room Air 03/13/24 20:01 Room Air Supervising Physician Co-Signing Physician Notes Attending addendum: I have physically seen this patient, have supervised the medical residents activities, and agree with the H&P unless as otherwise noted. Assessment and Plan: AICD discharge/PAF/hypertension/cardiomyopathy/history of V. tach- The patient will be admitted to telemetry for serial cardiac enzymes, serial EKG's, cardiac rhythm monitoring and a 2-D echocardiogram with Dopplers. Magnesium 1.5, to receive IV replacement and recheck laboratories in a.m. Troponin of 45.5 with follow-up pending Warfarin supratherapeutic INR of 6.8, holding any warfarin dosing until INR less than or equal to 2.5 Continue dofetilide, lisinopril and spironolactone Interrogation to be performed in a.m. cardiology Schizophrenia- Continue sertraline CKD stage III- Creatinine 1.48, with range 1.41-1.74 Repeat laboratories in a.m. Hypothyroidism- Continue levothyroxine (6) Cardiomyopathy Cardiomyopathy type: unspecified Qualified Code(s): I42.9 - Cardiomyopathy, unspecified
[2024-03-14] MEDS ORDERED: ACETAMINOPHEN 325 MG TAB PO PRN (01:20)
[2024-03-14] MEDS ORDERED: ALBUTEROL HFA 8 GM INHALER INH PRN (01:20)
[2024-03-14] MEDS: DOFETILIDE 125 MCG CAPSULE PO SCH (02:00)
[2024-03-14] MEDS: LEVOTHYROXINE SODIUM 50 MCG TABLET PO SCH (05:44)
[2024-03-14 07:12] LABS: Hematocrit (blood only) 42.4 % (42.0-52.0); Hemoglobin 13.4 g/dl (14.0-18.0); Mean Corpuscular Hemoglobin 27.8 pg (25.0-34.0); Mean Corpuscular Hgb Conc 31.6 g/dL (32.0-36.0); Mean Platelet Volume 9.5 fL (9.4-12.4); Platelet Count 273 K/uL (130-400); RDW Coefficient of Variation 15.5 % (11.5-14.5); Red Blood Count 4.82 M/uL (4.70-6.10); White Blood Count 3.65 K/ul (4.8-10.8)
[2024-03-14 07:34] LABS: BUN Creatinine Ratio 14.6 (10-20); Calcium 9.2 mg/dl (8.6-10.3); Creatinine Clr Calc Pharmacy 114.2 ml/min; Est GFR (African American) 80.2 ml/min; Est GFR (Non-African American) 69.2 ml/min; Potassium 3.2 mmol/L (3.5-5.1)
--- NOTE | 2024-03-14 07:45 | XRay Report ---
XR chest 1V portable HISTORY: 38 years-old Male Chest pain, nonspecific COMPARISON: 03/22/2022 TECHNIQUE: AP view of the chest FINDINGS: AICD device projects over the left chest. No pneumothorax or pleural effusion is present. Cardiomegal y is unchanged. No evidence for pulmonary edema. No consolidation to suggest pneumonia. IMPRESSION: No acute process. ACT 112: Negative or not required by law. The above report was generated using voice recognition software. It may contain grammatical, syntax o r spelling errors. Electronically signed by: Sarbjit Rodriguez M.D. 03/14/2024 7:44 AM
[2024-03-14 07:50] LABS: Prothrombin Time 61.7 Seconds (9.0-12.0)
[2024-03-14 07:54] LABS: INR 6.7 (0.9-1.1)
[2024-03-14 08:24] LABS: Magnesium 1.9 mg/dl (1.7-2.4)
[2024-03-14] MEDS: POTASSIUM CHLORIDE CRTAB 20 MEQ TABCR PO ONE (08:57)
[2024-03-14] MEDS: PHYTONADIONE 5 MG TAB PO STA (08:57)
[2024-03-14] MEDS: lisinopril 40 MG TAB PO SCH (08:57)
[2024-03-14] MEDS: SPIRONOLACTONE 25 MG TAB PO SCH (08:57)
--- NOTE | 2024-03-14 13:01 | Hospitalist Progress Note ---
Date of Service March 14, 2024 Assessment & Plan (1) Cardiac arrhythmia: Plan: This apparently caused his AICD to fire. He felt palpitations but had no syncope. Telemetry. Cardiology consultation is pending. (2) Hypomagnesemia: Plan: Replacement. Serial labs (3) Elevated troponin: Plan: No definite acute coronary syndrome. EKG negative for acute changes. Telemetry (4) Coumadin toxicity: Plan: INR 6.7 today. No active bleeding. Oral vitamin K administered. Serial labs Plan Hopeful return to [facility] within the next 24 to 48 hours Admission and Anticipated Discharge Date Admission Date: March 13, 2024 Subjective Alert and oriented. No distress. He states he did feel palpitations around the time of the AICD fired. Cardiology consultation is pending. 1 dose of oral vitamin K administered today for INR 6.7. Thyroid profile is normal. Potassium replacement is underway Review of Systems 2 Review of Systems: Constitutional-no fever or chills ENT-no blurred vision, no double vision, no epistaxis, no sore throat Respiratory-no cough, no wheezing, no shortness of breath Cardiac- no chest pain, no syncope. He states he did feel palpitations before the AICD fired GI-no nausea, vomiting, diarrhea, melena, hematochezia -no urinary retention, no urinary incontinence, no dysuria, no hematuria Musculoskeletal-no joint pain, no muscle tenderness Skin-no bruising, no rashes, no pruritus Neuro-no isolated weakness, no paresthesia, no weakness Psych-no depression, no anxiety Physical Exam 2 Physical Exam: General-alert and oriented x3, no fever, no chills HEENT-head atraumatic and normocephalic, pupils equal and reactive to light, extraocular muscles intact Neck-no lymphadenopathy or thyromegaly, trachea midline Chest-clear to auscultation. No rales, wheezing or rhonchi Cardiac-regular rate and rhythm, normal S1 and S2 Abdomen-normal bowel sounds, no hepatosplenomegaly Extremities-no cyanosis, clubbing, or edema Neuro-cranial nerves II through XII intact, motor and sensory function within normal limits, strength symmetrical, no focal deficits Psych-normal affect, normal mood Results & Data Results & Data Vital Signs (Past 12 Hours) Vital Signs Temp Pulse Pulse Resp BP Pulse Ox O2 Del Method 03/14/24 11:27 36.6 C 62 18 114/74 98 Room Air 03/14/24 07:24 36.4 C L 72 18 113/74 94 Room Air 03/14/24 02:06 36.7 C 67 16 109/71 99 Room Air 03/14/24 01:49 63 03/14/24 01:25 36.7 C 16 109/71 99 Room Air Laboratory Results 03/14/24 06:30 03/14/24 06:30 PG Care Time/CCT Total # of Minutes Spent Total Time Spent with Patient: Total time spent is greater than 50% in coordination of care (as documented) at patient's floor/unit and/or counseling patient: Coding Level of Care Code 65746 SUB INP/OBS CARE 3/50MIN Diagnoses Cardiac arrhythmia I49.9 Hypomagnesemia E83.42 Elevated troponin R77.8 Coumadin toxicity T45.511A
--- NOTE | 2024-03-14 13:51 | Cardiology Consultation ---
Date of Consultation March 14, 2024 Assessment & Plan (1) AICD (automatic cardioverter/defibrillator) present: -suffered an apparent fibrillation yesterday prompting admission. -nursing staff attempting to arrange interrogation with [employer]. -no dysrhythmias currently on telemetry. (2) Cardiomyopathy: -resolved, nonischemic cardiomyopathy -LVEF 50% on echocardiogram June 2022. -consider repeat echocardiogram. (3) HTN (hypertension): -adequate control on current regimen. (4) PAF (paroxysmal atrial fibrillation): -on rhythm control and long-term anticoagulation (5) Supratherapeutic INR: -warfarin currently on hold. History of Present Illness Attending Physician: Pavan Roldan MD History of Present Illness Mr Mistry is a 38-year-old male admitted yesterday after receiving a defibrillation. This consultation was ordered to assistance cardiac management. Of note, the patient typically follows with Dr. Castelan in the outpatient setting. The patient was in his usual state of health until approximately 7:00 p.m. on the day of presentation. The patient had been working out read up by lifting weights in the gymnasium. He was walking from 1 area of the gym to another when he was suddenly hit by a shock. He fell to the ground and a may or may not have lost consciousness. He then proceeded emergency room for further care. The patient carries a history of a resolved, nonischemic cardiomyopathy. An echocardiogram performed in June 2022 noted normal ventricular systolic function with ejection fraction 50%. The patient did have a subcutaneous [employer] ICD placed in April 2016. He follows closely with Dr. Castelan in the outpatient setting. Currently, patient is resting comfortably in bed without complaints. Past medical and surgical history 1. Resolved, nonischemic cardiomyopathy 2. History of recurrent ventricular tachycardia 3. Subcutaneous [employer] ICD-April 2016 4. Paroxysmal atrial fibrillation 5. GERD 6. Asthma 7. Hypothyroidism 8. Schizophrenia 9. Obesity 10. Umbilical hernia repair Social history Incarcerated at [facility] Admits to vaping. No alcohol Family history Noncontributory Review of systems A 10 review systems was undertaken and negative except that described above. Allergies Allergy/AdvReac Type Severity Reaction Status Date / Time penicillin G Allergy Mild Unknown Unverified 11/12/22 08:50 Home Medications Medication Instructions Recorded Confirmed Type levothyroxine 50 mcg tablet 50 mcg PO DAILY 11/26/21 03/13/24 History spironolactone 25 mg tablet 25 mg PO QAM 07/15/22 03/13/24 History (Aldactone) lisinopril 40 mg tablet 40 mg PO DAILY 11/08/22 03/13/24 History dofetilide 500 mcg capsule 500 mcg PO Q12H 02/16/24 03/13/24 History (Tikosyn) sertraline 100 mg tablet 200 mg PO HS 02/16/24 03/13/24 History albuterol sulfate 90 mcg/actuation 2 puff inhalation QID PRN 03/13/24 03/13/24 History aerosol inhaler Shortness Of Breath warfarin 10 mg tablet 10 mg PO HS 03/13/24 03/13/24 History Patient History Medical History A-fib Asthma Cardiac defibrillator in place Cardiomyopathy Hernia HTN (hypertension) ICD (implantable cardioverter-defibrillator) in place [employer] subcutaneous ICD model A209, implanted 05/07/2016 On Coumadin for atrial fibrillation Schizophrenia Super obesity Syncope Ventral hernia without obstruction or gangrene Surgical History History of cardiac defibrillator placement Social History Smoking Status: Former smoker Tobacco Type: Cigarettes Smoking End Date: 1 yr ago; Second Hand Exposure: No; Do You Dip or Chew Tobacco: No; Tobacco Cessation Education Requested by Patient: No Hx Alcohol Use: No Hx Substance Use: No Preferred Language: Ukrainian Communication Ability: Effective Abstracter Required: No Beliefs That Will Affect Care: None Current Living Situation: Other Current Living Situation Comment: [facility] Feels Safe at Home: Yes Assistive Devices: None Physical Exam Physical Exam: In general this is a well-developed well-nourished male in no acute distress. HEENT exam is negative. Neck is supple with full carotid upstrokes. There are no carotid bruits. Jugular venous pressure is flat at 90. There is no thyromegaly. Cardiovascular exam reveals a regular rhythm with a normal S1 and S2. No S3, S4, or murmurs are noted. Lungs are clear without rales, rhonchi, or wheezes. Chest notes a palpable device and the left flank. Abdomen is soft and nontender without bruits. Extremities reveal intact radial artery and posterior tibial pulses bilaterally. There is no peripheral edema. Results & Data Vital Signs (Past 12 Hours) Vital Signs Temp Pulse Pulse Resp BP Pulse Ox O2 Del Method 03/14/24 11:27 36.6 C 62 18 114/74 98 Room Air 03/14/24 07:24 36.4 C L 72 18 113/74 94 Room Air 03/14/24 02:06 36.7 C 67 16 109/71 99 Room Air 03/14/24 01:49 63 Laboratory Results CBC notes hemoglobin of 13.4, hematocrit 42.4, white count 3.65, and platelet count [id number]. Electrolytes note a sodium of 140, potassium 3.2, chloride 105, bicarb 33, BUN 19, creatinine 1.3, glucose of 86. Magnesium level was low at 1.5 on presentation, currently 1.9. High sensitivity troponins 45.5 with a follow- up value 44.2. TSH is normal at 3.17. INR is elevated at 6.7. Diagnostic Findings woven wood shade assembler notes sinus rhythm without evidence of ventricular tachycardia. PG Care Time/CCT Total # of Minutes Spent Total Time Spent with Patient: Total time spent is greater than 50% in coordination of care (as documented) at patient's floor/unit and/or counseling patient: Coding Level of Care Code 14882 IN/OBS CONSULT LVL 4,60M Diagnoses AICD (automatic cardioverter/defibrillator) present Z95.810 Cardiomyopathy I42.9 Cardiomyopathy type: unspecified HTN (hypertension) I10 PAF (paroxysmal atrial fibrillation) I48.0 Supratherapeutic INR R79.1 (2) Cardiomyopathy Cardiomyopathy type: unspecified Qualified Code(s): I42.9 - Cardiomyopathy, unspecified
--- NOTE | 2024-03-14 14:47 | Electrocardiogram Report ---
Test Reason : Blood Pressure : / mmHG Vent. Rate : 089 BPM Atrial Rate : 089 BPM P-R Int : 168 ms QRS Dur : 092 ms QT Int : 352 ms P-R-T Axes : 050 032 018 degrees QTc Int : 428 ms Normal sinus rhythm Normal ECG When compared with ECG of 22-MAR-2022 01:29, No significant change was found Confirmed by Rafy Patel ([id number]) on 03/14/2024 2:46:55 PM Referred By: [facility] Confirmed By:Rafy Patel
--- NOTE | 2024-03-14 14:52 | Electrocardiogram Report ---
Test Reason : Blood Pressure : / mmHG Vent. Rate : 075 BPM Atrial Rate : 075 BPM P-R Int : 172 ms QRS Dur : 098 ms QT Int : 414 ms P-R-T Axes : 068 056 031 degrees QTc Int : 462 ms Normal sinus rhythm Normal ECG When compared with ECG of 13-MAR-2024 20:11, (unconfirmed) No significant change was found Confirmed by Rafy Patel ([id number]) on 03/14/2024 2:52:34 PM Referred By: [facility] Confirmed By:Rafy Patel
[2024-03-14] MEDS: ALUMINUM/MAGNESIUM SUSP 30 ML UDC PO PRN (15:48)
[2024-03-14] MEDS: SERTRALINE HCL 100 MG TABLET PO SCH (20:13)
--- NOTE | 2024-03-14 21:19 | Billing Data ---
Date of Service March 14, 2024 Coding Level of Care Code 35025 INT INP/OBS CARE
[2024-03-15 06:35] LABS: Basophils # (auto) 0.02 K/uL (0.00-0.20); Basophils % (auto) 0.5 %; Eosinophils % (auto) 2.7 %; Hematocrit (blood only) 43.3 % (42.0-52.0); Lymphocytes # (auto) 1.55 K/uL (1.20-3.40); Lymphocytes % (auto) 42.1 %; Mean Corpuscular Hemoglobin 28.3 pg (25.0-34.0); Mean Corpuscular Hgb Conc 32.3 g/dL (32.0-36.0); Mean Corpuscular Volume 87.7 fL (80.0-100.0); Mean Platelet Volume 9.9 fL (9.4-12.4); Monocytes # (auto) 0.61 K/uL (0.11-0.59); Monocytes % (auto) 16.6 %; Neutrophils % (auto) 38.1 %; Platelet Count 303 K/uL (130-400); RDW Coefficient of Variation 15.3 % (11.5-14.5); RDW Standard Deviation 48.6 fL (36.4-46.3); Red Blood Count 4.94 M/uL (4.70-6.10); White Blood Count 3.68 K/ul (4.8-10.8)
[2024-03-15 06:58] LABS: Prothrombin Time 20.5 Seconds (9.0-12.0)
[2024-03-15 07:04] LABS: BUN Creatinine Ratio 12.9 (10-20); Calcium 9.2 mg/dl (8.6-10.3); Creatinine Clr Calc Pharmacy 128.7 ml/min; Est GFR (African American) 92.1 ml/min; Est GFR (Non-African American) 79.4 ml/min
--- NOTE | 2024-03-15 15:55 | Cardiology Progress Note ---
Date of Service March 15, 2024 Assessment & Plan (1) AICD (automatic cardioverter/defibrillator) present: Plan: -suffered a defibrillation prompting admission. -[employer] leasing representative interrogated the device. -had a sustained episode of ventricular tachycardia which was successfully cardioverted. -discussed with Dr. Castelan. He offered no changes to the device. -continue Tikosyn. -agree with restarting carvedilol. (2) Cardiomyopathy: Plan: -resolved, nonischemic cardiomyopathy -LVEF 50% on echocardiogram June 2022. -repeat echocardiogram notes an LVEF of 55-60% (3) HTN (hypertension): Plan: -adequate control on current regimen. (4) PAF (paroxysmal atrial fibrillation): Plan: -on rhythm control and long-term anticoagulation Admission and Anticipated Discharge Date Admission Date: March 13, 2024 Subjective The patient is resting comfortably in bed without complaints of chest pain or dyspnea. Physical Exam Physical Exam: In general this is a well-developed well-nourished male in no acute distress. HEENT exam is negative. Neck is supple with full carotid upstrokes. There are no carotid bruits. Jugular venous pressure is flat at 90. There is no thyromegaly. Cardiovascular exam reveals a regular rhythm with a normal S1 and S2. No S3, S4, or murmurs are noted. Lungs are clear without rales, rhonchi, or wheezes. Chest notes a palpable device and the left flank. Abdomen is soft and nontender without bruits. Extremities reveal intact radial artery and posterior tibial pulses bilaterally. There is no peripheral edema. Results & Data Vital Signs (Past 12 Hours) Vital Signs Temp Pulse Resp BP Pulse Ox O2 Del Method 03/15/24 11:42 36.9 C 62 18 136/85 100 Room Air 03/15/24 07:40 36.7 C 72 18 121/80 99 Room Air Diagnostic Findings coroner's juror is benign. PG Care Time/CCT Total # of Minutes Spent Total Time Spent with Patient: Total time spent is greater than 50% in coordination of care (as documented) at patient's floor/unit and/or counseling patient: Coding Level of Care Code 76839 SUB INP/OBS CARE 3/50MIN Diagnoses AICD (automatic cardioverter/defibrillator) present Z95.810 Cardiomyopathy I42.9 Cardiomyopathy type: unspecified HTN (hypertension) I10 PAF (paroxysmal atrial fibrillation) I48.0 (2) Cardiomyopathy Cardiomyopathy type: unspecified Qualified Code(s): I42.9 - Cardiomyopathy, unspecified
[2024-03-15] MEDS: WARFARIN SOD 7.5 MG TAB PO SCH (16:08)
[2024-03-15] MEDS: carvediloL 25 MG TAB PO SCH (16:08)
--- NOTE | 2024-03-15 16:18 | Discharge Summary ---
Discharge Summary Date of Service March 15, 2024 Principal Dx & Hospital Course #1 = Principal Diagnosis (1) AICD (automatic cardioverter/defibrillator) present: AICD firing on 03/13 at approximately 7 PM --> interrogation of ICD does indeed show about 23 seconds of VT prior to shock. Lytes ok except mildly low magnesium, QTc normal, no evidence of acute ischemia except mild trop elevation of 45 from shock With a h/o VT on Tikosyn and bet malcom, compliant with meds ICD fired appropriately Has had ICD since age 24 for nonischemic CM ECHO here with preserved EF Appreciate Crdiology consult--> no changes in meds and stable for discharge to home f/u as outpt with Cardio continue Coreg 25mg po bid and Tikosyn (2) Hypomagnesemia: repleted, normalized (3) Elevated troponin: secondary to ICD firing, not ACS (4) A-fib: History of A-fib on warfarin.In NSR here but did have some brief runs of Afib the AM of admission on interrogation Pt reports he had a gastroenteritis that AM with N/V/D INR of 6.8 on admission. Held warfarin and given po Vit K as INR remained elevated at 6.7 next day Pt reports he has lost 250 lbs in the last 2 years through diet and exercise changes. He was not taking his coumadin since Sep until 1 week ago he resumed it at the previous dose of 10mg Advised lowering dose to 7.5mg daily and repeat INR in 2 days Discussed with the PA at the residential (5) Cardiomyopathy: as above (6) Schizophrenia: Continue sertraline 200 mg, AbiSkip leighentin (7) HTN (hypertension): Continue lisinopril 40 mg daily, Coreg 25mg po bid (8) Hypothyroidism: TSH of 3.171. Continue levothyroxine 50 mcg daily Plan Dispo-doing well, stable for dc to residential Notes For Next Care Provider Check PT/INR in 2 days F/u with Cardiology within 1 month Medication Changes From Visit Lowered Coumadin to 7.5mg po qPM Admission HPI Per Admitting Provider The patient is a 36-year-old male resident of [facility], with a past medical history including AICD, superobesity, atrial fibrillation, hypothyroidism, schizophrenia, hypertension, asthma, cardiomyopathy, V. tach and ventral hernia. Patient AICD placed in 2015. Patient was working out in the gym at approximately 630/7 PM when he started to have chest pain and then felt a shock in his chest. He lost consciousness for several seconds. States that the chest pain felt like a function of the chest. States that he has been feeling ill for the last couple days. Having some shortness of breath. Feeling fatigued and having some diarrhea. At time of admission patient denies any chest pain or shortness of breath. Discharge Exam Constitutional WD/WN, vitals as above Respiratory normal respiratory effort, lungs clear to auscultation Cardiovascular RRR, no murmur, no edema Gastrointestinal (Abdomen) normal bowel sounds, soft, nontender, no hepatosplenomegaly Psychiatric A+Ox3, euthymic affect Updated Medication List Medication Instructions Recorded Confirmed Type levothyroxine 50 mcg tablet 50 mcg PO DAILY 11/26/21 03/13/24 History spironolactone 25 mg tablet 25 mg PO QAM 07/15/22 03/13/24 History (Aldactone) lisinopril 40 mg tablet 40 mg PO DAILY 11/08/22 03/13/24 History dofetilide 500 mcg capsule 500 mcg PO Q12H 02/16/24 03/13/24 History (Tikosyn) sertraline 100 mg tablet 200 mg PO HS 02/16/24 03/13/24 History albuterol sulfate 90 mcg/actuation 2 puff inhalation QID PRN 03/13/24 03/13/24 History aerosol inhaler Shortness Of Breath aripiprazole 5 mg tablet (Abilify) 5 mg PO HS 03/15/24 03/15/24 History benztropine 1 mg tablet 1 mg PO DAILY 03/15/24 03/15/24 History carvedilol 25 mg tablet (Coreg) 25 mg PO BID 03/15/24 03/15/24 History warfarin 7.5 mg tablet (Jantoven) 7.5 mg PO DAILY@1600 #30 tabs 03/15/24 Rx Hospital Stay Data Consultations 03/13/24 22:52 ED Decision to Admit Stat 03/14/24 01:20 Consult Cardiology Routine Procedures Performed ECHO Pending Results Patient Have Any Pending Studies at Discharge: No Discharge Instructions Given to Patient (Per Discharging Provider) You were admitted after your defibrillator appropriately shocked you for ventricular tachycardia. You had an echocardiogram of the heart which showed a normal functioning strength of your heart. Please continue taking the Tikosyn and carvedilol as before. Follow-up with recreational leader within 1 month after discharge. Your PT/INR was quite elevated for your Coumadin level at 6.8 when you came in and you were given a small dose of oral vitamin K. Your INR was 2.0 on the day of discharge. Please have your PT/INR checked again in 2 days on 03/17. In the meantime, continue a lower dose of Coumadin at 7.5 mg daily. Interrogation of your defibrillator also did show that you are occasionally having some atrial fibrillation so it is important that you take the Coumadin to prevent strokes that can be associated with having atrial fibrillation. Total Time Total Time Spent Total Time Spent (In Minutes): 45 min Total Time Includes: Examination of the Patient, Discharge Planning, Medication Reconciliation and Communication With Other Providers (Cardiology; [facility] PA-C) Coding Level of Care Code 16491 INP/OBS DISCH >30 MIN Diagnoses AICD (automatic cardioverter/defibrillator) present Z95.810 Hypomagnesemia E83.42 Elevated troponin R77.8 A-fib I48.91 Cardiomyopathy I42.9 Cardiomyopathy type: unspecified Schizophrenia F20.9 HTN (hypertension) I10 Hypothyroidism E03.9
--- NOTE | 2024-03-15 17:10 | Electrocardiogram Report ---
Test Reason : Blood Pressure : / mmHG Vent. Rate : 058 BPM Atrial Rate : 058 BPM P-R Int : 162 ms QRS Dur : 098 ms QT Int : 448 ms P-R-T Axes : 061 047 020 degrees QTc Int : 439 ms Sinus bradycardia with sinus arrhythmia Otherwise normal ECG When compared with ECG of 14-MAR-2024 05:40, No significant change was found Confirmed by Rafy Patel ([id number]) on 03/15/2024 5:10:33 PM Referred By: [facility] Confirmed By:Rafy Patel
[2024-03-15] MEDS ORDERED: BENZTROPINE MESYLATE 1 MG TAB PO SCH (21:00)
[2024-03-15] MEDS ORDERED: ARIPiprazole 5 MG TAB PO SCH (21:00)
--- NOTE | 2024-03-15 23:17 | XCELERA ---
[id number]
== END 2024-03-15 18:45 ==
LOC: 2S 19:57 → ED 19:57 → SUATTDRO 23:26 → 2S 03-14 01:00